=== PATIENT | female | born 1965 | race Two or more races ===

== ENCOUNTER 2021-06-03 07:28 | Day surgery (SDC) | payer BC, SELFPAY ==
--- NOTE | 2021-06-01 13:45 | PCM.HP.BLA ---
History and Physical Date of Admission: 06/03/21 Pre-Op History and Physical ? HPI: The patient is a 55 year old female presenting for postmenopausal bleeding follow-up pelvic ultrasound. Patient had previous postmenopausal bleeding had a pelvic ultrasound which revealed thickened endometrial lining with a likely endometrial polyp. Decision at this time to proceed with evaluation of the endometrial cavity. Pre-operative visit. She is scheduled for hysteroscopy, D&C, polypectomy, for thickened EM, Endometrial polyp and PMB on 06/03/21. Procedure discussed along with risks, benefits and complications. Other alternatives discussed for management. Consent form signed? Yes. ? ? PAST MEDICAL HISTORY PAST MEDICAL HISTORY Diagnosis Date ? Anxiety ? ? Hyperlipemia ? ? Hypothyroid ? ? ? PAST SURGICAL HISTORY PAST SURGICAL HISTORY Procedure Laterality Date ? ANKLE SURGERY HX Left 01/17/2018 ? plates and screws placed ? , LOW CERV, IN-HOSP CAR ? ? ? x2 ? TUBAL LIGATION HX ? CURRENT MEDICATIONS Current Outpatient Medications Medication Sig Dispense Refill ? topiramate (TOPAMAX) 25 mg tablet TAKE 1 TABLET DAILY X 1 WEEK, THEN INCREASE TO 2 TABLETS DAILY ? ? ? fluticasone propionate (FLONASE NASAL) Use in the nose. ? ? ? MAGNESIUM CITRATE ORAL Take by mouth. ? ? ? folic acid/multivit-min/lutein (CENTRUM SILVER ORAL) Take by mouth. ? ? ? Levothyroxine 50 mcg cap Take 75 mcg by mouth. ? atorvastatin (LIPITOR) 10 mg tablet Take 10 mg by mouth once daily. ? ? ? CALCIUM CARBONATE/VITAMIN D3 (VITAMIN D-3 ORAL) Take 2,000 Units by mouth. ? ? ? fexofenadine (ALLERGY RELIEF, FEXOFENADINE,) 180 mg tablet Take 180 mg by mouth once daily. ? ? ? acyclovir 200 mg capsule Take by mouth every 4 hours while awake. ? ? ? rizatriptan 5 mg tablet Take 5 mg by mouth as needed. May repeat in 2 hours if needed ? ? ? sertraline 100 mg tablet Take 100 mg by mouth once daily. ? ? ? No current facility-administered medications for this visit. ? ? ALLERGIES: Seasonal Allergies ? PERSONAL HISTORY: SOCIAL HISTORY Social History ? Tobacco Use ? Smoking status: Former Smoker ? Smokeless tobacco: Never Used ? Tobacco comment: 6 months in college Vaping Use ? Vaping Use: Never used Substance Use Topics ? Alcohol use: Yes ? ? Comment: social ? Drug use: No ? FAMILY HISTORY: FAMILY HISTORY FAMILY HISTORY Problem Relation Age of Onset ? Breast Cancer Mother ? ? Hypertension Mother ? ? Hyperlipidemia Mother ? ? Hyperlipidemia Father ? ? Hypertension Brother ? ? Breast Cancer Maternal Grandmother ? ? Hypertension Maternal Grandfather ? ? Diabetes Paternal Grandmother ? ? ? REVIEW OF SYMPTOMS: negative except as noted above PHYSICAL EXAMINATION: ? VITALS: Blood pressure 118/64, height 5' 3 (1.6 m), weight 164 lb (74.4 kg), last menstrual period 10/04/2016. ? GENERAL: The patient is well nourished, well hydrated in no acute distress. , The patient is oriented to time, place, and person. NECK: full range of motion NEURO: alert and oriented x 3 ? Normal appearing anteverted uterus that measures 77 mm x 39 mm x 43 mm. The central endometrial complex measures 9.1 mm in combined thickness. Endometrial ?pathology cannot be excluded. Possible endometrial polyp noted: Polyp(s): Size 17 mm x 8 mm x 12 mm. Mean 12.3 mm. Fundal Both ovaries are not visualized. There is no free fluid visualized in the peritoneal cavity. Recommendations Consider hysteroscopic evaluation and management of intracavitary lesion if clinically indicated. Consider further clinical evaluation of the endometrial cavity. Method Transvaginal, 3D ultrasound examination. ? IMPRESSION: PMB, thickened EM, endometrial polyp ? PLAN: Hysteroscopy, D&C, Polypectomy ? Pt has been counseled on risks/benefits and alternatives of surgery including but not limited to anesthesia, bleeding, infection, injury to pelvic structures including bowel, bladder, ureters and vessels. Pt wishes to proceed with surgery at this time. ? COVID testing reviewed PRE and POST op instructions reviewed I have reviewed and updated past medical and surgical history, medications and allergies Hanny Pineda MD ?8:28 AM
[2021-06-03 08:19] VITALS: BP 115/71; PULSE 64; RESP 16; TEMP 36.7; O2SAT 99; BMI 26.9
[2021-06-03 08:19] LABS: Hematocrit 39.7 % (37-47); Hemoglobin 13.4 g/dL (12.0-15.0); Mean Corp Hgb Conc 33.8 g/dL (32-36); Mean Corpuscular Hgb 30.9 pg (27.0-32.0); Mean Corpuscular Volume 91.5 fL (81-99); Platelet Count 273 K/mm3 (150-450); RBC Distribution Width CV 12.3 % (11.6-14.6); RBC Distribution Width SD 41.5 fl (35.1-43.9); Red Blood Count 4.34 M/mm3 (4.2-5.4); White Blood Count 4.6 K/mm3 (4.4-11.0)
[2021-06-03 08:22] LABS: Scan Indicated on CBC? Y/N NO
[2021-06-03] MEDS: Lactated Ringers 1,000 ML 15 ML IV (08:26)
--- NOTE | 2021-06-03 08:33 | DCINST_ITS ---
Discharge Instructions Procedure D&C Diet Discharge Diet: No restrictions Activity May resume sexual activity in: 1 week Dressing / Incision Call your doctor if you observe: Fever of 101 or Higher, Inability to urinate, Using more than 1 pad per hour and Uncontrolled pain Follow Up Care Please Follow Up With: Hanny Hooks MD When: 1-2 weeks post OP if you need an appointment please call [phone] Test Results: Test results from this visit will be discussed in further detail at your follow-up appointment, if applicable. Discharge Plan Admission Attending Provider: Hanny Hooks Primary Care Provider: Sheron Cota NP Discharge Orders/Prescriptions Prescriptions: No Action atorvastatin 10 mg Tablet 10 mg PO QHS RF: 0 sertraline 100 mg Tablet 100 mg PO DAILY RF: 0 topiramate 25 mg Tablet 50 mg PO DAILY RF: 0 fexofenadine [Magaly] 180 mg Tablet 180 mg PO DAILY RF: 0 magnesium 100 mg Tablet 100 mg PO PRN PRN (Reason: Digestion) RF: 0 multivitamin Capsule 1 cap PO DAILY RF: 0 rizatriptan 5 mg Tablet 5 mg PO Q2H PRN (Reason: MIGRAINES) RF: 0 melatonin-theanine 3-40 mg Tablet 2 tab PO QHS RF: 0 cholecalciferol (vitamin D3) [Vitamin D3] 50 mcg (2,000 unit) Capsule 50 mcg PO DAILY RF: 0 levothyroxine 75 mcg Capsule 75 mcg PO DAILY RF: 0 Referrals / Follow Up: Sheron Cota NP, [facility] [Primary Care Provider] - Disposition Disposition (needs filled in before D/C Order can be placed): Home, Self Care
[2021-06-03 08:35] LABS: Anion Gap 6 (5-15); BUN 23 mg/dL (7-18); Calcium,Total 9.3 mg/dL (8.5-10.1); Chloride 111 mmol/L (98-107); Creatinine, Serum 0.85 mg/dL (0.55-1.02); EST Glomerular Filtration Rate 73 mL/min (>60); Est Glom Filt Rate - Afr Amer 89 mL/min (>60); Estimated Creatinine Clearance 61.13 ml/min; Glucose 106 mg/dL (74-106); Potassium 4.1 mmol/L (3.5-5.1); Sodium Level 142 mmol/L (136-145)
--- NOTE | 2021-06-03 08:45 | EMB_PTH ---
PATIENT: KIA MCKEON LOC: [facility] [place] U#:[id number] AGE/SX: 55/F ROOM: RE06/03/[address]: Dr. Hanny Hooks, MDDOB: 1965 BED: DIS: 06/03/2021 SPEC #: [id number] RECD: 06/03/21 12:57 STATUS: GENNARO NICHOLS #: [id number] CARLA: 06/03/21 08:[address]: Hanny Hooks DEPT: SURGICAL PATHOLOGY RECD BY: Una Lujan ENTERED: 06/03/21 13:32 SP TYPE: ENDOM BX/C MARU DR: MINERVA Muhammad Tissues: Endometrium, NOS Procedures: Surgery Specimen Level IV HEADER OPERATION: Hysteroscopy, D & C PRE-OP DIAGNOSIS: PMB, thickened EM TISSUE SUBMITTED: Endometrial curettings MICROSCOPIC DIAGNOSIS Endometrial curettings: Inactive endometrium. Fragments of benign endocervical mucosa, blood and mucous. GRETCHEN:win 06/04/2021 MICROSCOPIC DESCRIPTION Slides are reviewed. GROSS DESCRIPTION Received in fixative is one container labeled with the patient's name and designated endometrial curettings. The specimen consists of multiple fragments of hemorrhagic soft tissue that in aggregate measure 2.5 x 1 x 0.1 cm. The specimen is totally submitted in one cassette. / GRETCHEN:win 06/03/21 TC:4 CPT: 09499
--- NOTE | 2021-06-03 09:02 | PCM.OPRPT ---
Problems Associated Problem List Diagnoses (1) Thickened endometrium: (2) PMB (postmenopausal bleeding): Report of Operation Date of Procedure: 06/03/21 Pre-Operative Diagnosis: PMB, thickened endometrium, endometrial polyp Post-Operative Diagnosis: PMB Surgery/Procedure Performed:: Hysteroscopy, D&C Description of Surgical Findings:: Normal endometrium, one area of thickness noted on left endocervical area, both tubal ostia visualized. Atrophic appearing EM Surgeon: Hanny Hooks Type of Anesthesia: MAC Specimen's removed: endometrial curetting Drains: none Estimated Blood Loss (mL): <5cc Fluids Replaced: 500 Description of Procedure: Informed consent was obtained the patient was taken the operating room she was placed in supine position. She was given anesthesia. She was then placed in the [facility] where she was prepped and draped in the normal sterile fashion. At this time the weighted speculum was placed in the posterior fornix of vagina. Single-tooth tenaculum was used to gently grasp the anterior lip the cervix. At this time the uterine cavity was sounded to approximately 7 cm. Gentle dilatation was performed once adequate dilatation of the cervix was achieved the hysteroscope using normal saline as a distention medium was placed. Tubal ostia visualized. Endometrium appears atrophic, Small amount of tissue noted on left endocervical canal. This time hysteroscopy was complete. Decision for Curettage performed- small amount of tissue collected and Tissue will be sent to pathology for evaluation. Tenaculum removed. Good hemostasis. Instrument, lap count correct x 2. Vaginal Sweep was negative. Grafts/Implants Used: none Procedure Start Time: 08:53 Procedure Stop Time: 09:00 Complications none Admit VTE Documentation VTE Present on Admission: Yes VTE Mechan Device Prophylaxis: SCD's VTE Pharm Prophylaxis ordered?: No Reason prophylaxis not ordered:: Procedure Not Indicated
[2021-06-03 09:13] VITALS: BP 115/71; PULSE 72; RESP 18; TEMP 36.3; O2SAT 95
[2021-06-03 09:15] VITALS: BP 115/71; BP 149/79; PULSE 73; RESP 18; O2SAT 94
[2021-06-03 09:20] VITALS: BP 115/71; BP 141/75; PULSE 77; RESP 18; O2SAT 94
[2021-06-03 09:21] VITALS: BP 115/71; BP 138/76; PULSE 70; RESP 18; TEMP 36.3; O2SAT 96
[2021-06-03 10:25] VITALS: BP 110/74; BP 115/71; PULSE 70; RESP 16; TEMP 36.8; O2SAT 98
== END 2021-06-03 10:27 | disposition home or self-care (01) ==
LOC: SDC 07:40 → AC 07:40
PROVIDERS: PCP Nurse Practitioner Family; Referring Provider Obstetrics & Gynecology; Visit Provider Obstetrics & Gynecology
PROC: 0UB98ZZ Excision of Uterus, Via Natural or Artificial Opening Endoscopic (ICD-10-PCS; CPT 58558; principal; 2021-06-03 08:30)
DX: N95.0 Postmenopausal bleeding (principal); R93.89 Abnormal findings on diagnostic imaging of other specified body structures; E03.9 Hypothyroidism, unspecified; E78.5 Hyperlipidemia, unspecified; F41.9 Anxiety disorder, unspecified; Z80.3 Family history of malignant neoplasm of breast; Z82.49 Family history of ischemic heart disease and other diseases of the circulatory system; Z83.438 Family history of other disorder of lipoprotein metabolism and other lipidemia; Z83.49 Family history of other endocrine, nutritional and metabolic diseases; Z83.3 Family history of diabetes mellitus; Z87.891 Personal history of nicotine dependence; F32.9 Major depressive disorder, single episode, unspecified
CPT/HCPCS: 00952; 58558; 80048; 85027; 88305; J7120; J2405

== ENCOUNTER → 2025-06-13 | Outpatient (CLI) | payer BC, SELFPAY ==
--- NOTE | 2025-06-13 19:02 | CT_ITS ---
PROCEDURE: SINUS/FACIAL BONE 06/14/2025 REASON FOR EXAM: CHRONIC SINUSITIS TECHNIQUE: Procedure Code: CTSI Modality: CT Procedure: SINUS/FACIAL BONE Coronal and Sagittal reconstruction series were provided. One or more dose reduction techniques were used (e.g., Automated exposure control, adjustment of the mA and/or kV according to patient size, use of iterative reconstruction technique). RADIATION DOSE SUMMARY: CTDI Vol 22.63 mGy DLP :515.6mGycm COMPARISON: none FINDINGS: Minimal basal mucosal thickening of the left maxillary antrum. Clear sphenoid and frontal sinuses as well as the right maxillary antrum and ethmoidal air cells. Uncinate Processes: No deviation or bulla formation O-M UNIT: patent. Sphenoethmoidal recesses. Patent Fovea Ethmoidalis: Normal position. Fovea ethmoidalis and cribriform plate are not low lying Nasal Septum: intact with o obvious deviation. Turbinates: unremarkable. Nasopharynx: no obvious abnormalities. Mastoid air cells and middle ear clefts: Unremarkable Facial Bones and mandible: Unremarkable. CT/Sinus/Facial Bone IMPRESSION: Minimal basal mucosal thickening of the left maxillary antrum. Otherwise, unremarkable study. Reading [facility]
--- OUTSIDE RECORDS SUMMARY | 2025-06-13 19:03 | XMS RPT_ITS | CCD ---
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 Holbrook December Primary Care Unava ilable Beata, Ms. Holbrook December Referring Unava ilable Beata, Ms. Holbrook December Attending Unava ilable Beata, Ms. Holbrook December Primary Care Unava ilable Bree Gold Referring Unavailable Bree Gold Attending Unavailable Maspeth, Ms. Holbrook December Primary Care Unava ilable Bree Gold Referring Unavailable Bree Gold Attending Unavailable Beata, Ms. Holbrook December Primary Care Unava ilable Bree Gold Referring Unavailable Bree Gold Attending Unavailable ALIX, Mr. CECILE PATEL Referring Unavai salinas Cota, Ms. Holbrook December Primary Care Unava ilable Bree Gold Attending Unavailable Ms. Lenore Elias Referring Unavailable Curt, Ms. Lenore Garza Attending Unavailable Beata, Ms. Holbrook December Primary Care Unava ilable Hanny Hooks Referring Unavail able Hanny Hooks Attending Unavail able Beata BRANCH, Sheron Primary Care Unavailable Bree Espinoza MD Primary Care Provider [phone] Bree Espinoza Unavailable MD BREE ESPINOZA Attending Unavaila MD BREE Castillo Primary Care Unavaila MD BREE Castillo Referring Unavaila MD BREE Castillo Attending Unavaila MD BREE Castillo Primary Care Unavaila MD BREE Castillo Referring Unavaila MD BREE Castillo Attending Unavaila MD BREE Castillo Primary Care Unavaila MD BREE Castillo Referring Unavaila ble MD BREE ESPINOZA Attending Unavaila ble MD BREE ESPINOZA Primary Care Unavaila MD BREE Castillo Referring Unavaila ble MD BREE ESPINOZA Primary Care Unavaila MD BREE Castillo Attending Unavaila ble MD BREE ESPINOZA Referring Unavaila ble MD BREE ESPINOZA Primary Care Unavaila MD BREE Castillo Attending Unavaila ble MD BREE ESPINOZA Referring Unavaila ble MD BREE ESPINOZA Primary Care Unavaila ble MD BREE ESPINOZA Attending Unavaila ble MD BREE ESPINOZA Referring Unavaila MD BREE Castillo Primary Care Unavaila ble MD BREE ESPINOZA Attending Unavaila ble MD BREE ESPINOZA Referring Unavaila ble MD BREE ESPINOZA Primary Care Unavaila MD BREE Castillo Referring Unavaila MD BREE Castillo Attending Unavaila MD BREE Castillo Attending Unavaila MD BREE Castillo Referring Unavaila ble MD BREE ESPINOZA Primary Care Unavaila MD BREE Castillo Attending Unavaila MD BREE Castillo Referring Unavaila MD BREE Castillo Primary Care Unavaila MD BREE Castillo Attending Unavaila MD BREE Castillo Primary Care Unavaila MD BREE Castillo Referring Unavaila MD BREE Castillo Attending Unavaila MD BREE Castillo Primary Care Unavaila MD BREE Castillo Referring Unavaila BREE Castillo Primary Care Unavailable BREE ESPINOZA Primary Care Unavailable BREE ESPINOZA Referring Unavailable BREE ESPINOZA Primary Care Unavailable BREE ESPINOZA Referring Unavailable BREE ESPINOZA Primary Care Unavailable BREE ESPINOZA Referring Unavailable BREE ESPINOZA Primary Care Unavailable BREE ESPINOZA Primary Care Unavailable BREE ESPINOZA Primary Care Unavailable BREE ESPINOZA Primary Care Unavailable BREE ESPINOZA Referring Unavailable BREE ESPINOZA Primary Care Unavailable BREE ESPINOZA Referring Unavailable BREE ESPINOZA Primary Care Unavailable BREE ESPINOZA Primary Care Unavailable BREE ESPINOZA Primary Care Unavailable BREE ESPINOZA Primary Care Unavailable Bree Espinoza MD Primary Care Provider [phone] Bree Espinoza MD Primary Care Provider [phone] Xavier Knox DO Primary Care Provider Bree Espinoza MD Primary Care Provider [phone] BREE ESPINOZA Attending Unavailable BREE ESPINOZA Primary Care Unavailable BREE ESPINOZA Attending Unavailable BREE ESPINOZA Primary Care Unavailable BREE ESPINOZA Attending Unavailable BREE ESPINOZA Primary Care Unavailable XAVIER KNOX Primary Care Unavailable HANNY LOCKE Attending Unavail able YURI LAINEZ Referring Unavailable XAVIER KNOX Primary Care Unavailable Allergies Allergy Classification Reported Allergen(s) Allergy Type Date of Onset Reaction(s) Facility (6 sources) Seasonal allergy; Translations: [SEASONAL ALLERGIES] Allergy to substance 7 Other: See [facility] (1 source) Sutures Drug allergy (disorder) 3 [facility] (7 sources) AMOXICILLIN-POT CLAVULANATE; Translations: [AMOXICILLIN-PO T CLAVULANATE] Propensity to adverse reactions to drug (disorder) 4 Headache, Nausea/vomiting [facility] Medications Current Medications Medication Drug Class(es) Dates Sig (Normalized) Sig (Original) acyclovir 200 mg oral capsule (20 sources) Herpesvirus Nucleoside Analog DNA Polymerase Inhibitor, Herpes Simplex Virus Nucleoside Analog DNA Polymerase Inhibitor, Herpes Zoster Virus Nucleoside Analog DNA Polymerase Inhibitor Start: 12-13-2023 take 1 capsule by mouth five times daily acyclovir (Zovirax) 200 mg capsule Indications: Recurrent cold sores Take 1 capsule (200 mg) by mouth 5 times a day. 10 capsule 3 12/13/2023 Active Start: 08-28-2023 take 1 capsule by mo [facility] five times daily acyclovir (Zovirax) 200 mg capsule Indications: Recurrent cold sores TAKE 1 CAPSULE (200 MG) BY MOUTH 5 TIMES A DAY. 10 capsule 3 08/28/2023 Active Start: 05-14-2018 take 1 capsule by mo [facility] five times daily Acyclovir 200 MG Oral Capsule Take 1 capsule 5 times a day. Quantity: 30 Refills: 1 Ordered: 11-Jul-2022 Lenore Suh Start : 14-May-2018 Active take 1 capsule by mo [facility] every four hours acyclovir 200 mg capsule Take by mouth every 4 hours while awake. Active Comment on above: Take by mouth every 4 hours while awake. amLODIPine 5 mg oral tablet (5 sources) Dihydropyridine Calcium Channel Benjamin Start: 10-25-19 take 1 tablet by mouth once daily amLODIPine (Norvasc) 5 mg tablet Indications: Primary hypertension Take 1 tablet (5 mg) by mouth once daily. 30 tablet 5 10/24/2024 Active Start: 03-12-2024 End: 09-08-2024 take 1 tablet by mouth once daily amLODIPine (Norvasc) 5 mg tablet Indications: Primary hypertension TAKE 1 TABLET BY MOUTH EVERY DAY 30 tablet 5 08/22/2024 Active atorvastatin 10 mg oral tablet (20 sources) HMG-CoA Reductase Inhibitor Start: 08-22-2024 take 1 tablet by mouth once daily atorvastatin (Lipitor) 10 mg tablet Indications: Mixed hyperlipidemia Take 1 tablet (10 mg) by mouth once daily. 30 tablet 5 10/24/2024 Active Start: 05-14-2018 take 1 tablet by [facility] once daily atorvastatin (Lipitor) 10 mg tablet Indications: Mixed hyperlipidemia TAKE 1 TABLET BY MOUTH EVERY DAY 90 tablet 1 02/26/2024 Active Comment on above: Take 10 mg by mouth once daily. azithromycin 500 mg oral tablet (3 sources) Macrolide Antimicrobial Start: 04-14-20 End: 04-24-20 take 1 tablet by mouth once daily azithromycin (Zithromax) 500 mg tablet Indications: Acute non-recurrent maxillary sinusitis Take 1 tablet (500 mg) by mouth once daily for 5 days. 5 tablet 04/14/2025 04/24/2025 Discontinued (Therapy completed) Start: 10-24-2024 End: 10-29-2024 take 1 tablet by mouth once daily azithromycin (Zithromax) 500 mg tablet Indications: Frontal sinus pain Take 1 tablet (500 mg) by mouth once daily for 5 days. 5 tablet 10/24/2024 10/29/2024 Active 24 hr buPROPion hydrochloride 300 mg extended release oral tablet (11 sources) Aminoketone Start: 08-22-2024 take 1 tablet by mouth once daily buPROPion XL (Wellbutrin XL) 300 mg 24 hr tablet Indications: Anxiety , Reactive depression Take 1 tablet (300 mg) by mouth once daily. DO NOT CRUSH CHEW OR SPLIT 30 tablet 5 10/24/2024 Active Start: 09-11-2023 End: 03-12-2024 take 1 tablet by mouth once daily buPROPion XL (Wellbutrin XL) 300 mg 24 hr tablet Indications: Anxiety , Reactive depression Take 1 tablet (300 mg) by mouth once daily. DO NOT CRUSH CHEW OR SPLIT 30 tablet 5 03/12/2024 Active Start: 03-13-2023 take 1 tablet by pedro th once daily buPROPion XL (Wellbutrin XL) 300 mg 24 hr tablet Indications: Anxiety , Reactive depression TAKE 1 TABLET BY MOUTH ONCE DAILY. DO NOT CRUSH, CHEW, OR SPLIT. 30 tablet 5 03/13/2023 Active Start: 02-01-2023 take 1 tablet by pedro th once daily buPROPion XL (Wellbutrin XL) 300 mg 24 hr tablet Indications: Anxiety , Reactive depression Take 1 tablet (300 mg) by mouth once daily. Do not crush, chew, or split. 30 tablet 2 02/01/2023 Active Start: 12-30-2022 End: 02-28-2023 take 1 tablet by mouth once daily buPROPion XL (Wellbutrin XL) 150 mg 24 hr tablet Indications: Anxiety , Reactive depression Take 1 tablet (150 mg) by mouth once daily. Do not crush, chew, or split. 30 tablet 5 01/23/2023 02/01/2023 Discontinued (Reorder) Calcium Carbonate / vitamin D3 (5 sources) CALCIUM CARBONAT E/VITAMIN D3 (VITAMIN D-3 ORAL) Take 2,000 Units by mouth. Active CALCIUM CARBONAT E/VITAMIN D3 (VITAMIN D-3 ORAL) Take 2,000 Units by mouth. 0 Active Comment on above: Take 2,000 Units by mouth. cholecalciferol 0.025 mg oral capsule (20 sources) Vitamin D take 1 capsule by mouth once daily cholecalciferol (Vitamin D-3) 25 MCG (1000 UT) capsule Take 1 capsule (25 mcg) by mouth once daily. Active fexofenadine hydrochloride 180 mg oral tablet (20 sources) Histamine-1 Receptor Antagonist take 1 tablet by mouth once daily fexofenadine (Magaly) 180 mg tablet Take 1 tablet (180 mg) by mouth once daily. Active Fexofenadine HCl - 180 MG Oral Tablet Quantity: 0 Refills: 0 Ordered: 14-May-2019 DO Active Comment on above: Take 180 mg by mouth once daily. fluticasone propionate 0.05 mg/actuat metered dose nasal spray (11 sources) Corticosteroid take 1 spray(s) nasal route once daily fluticasone (Flonase) 50 mcg/actuation nasal spray Administer 1 spray into each nostril once daily. Shake gently. Before first use, prime pump. After use, clean tip and replace cap. Active End: 05-30-2022 fluticasone propionate (FLON ASE NASAL) Use in the nose. 0 05/30/2022 Discontinued Comment on above: Use in the nose. folic acid/multivit-min/lute in (CENTRUM SILVER ORAL) (5 sources) folic acid/multi vit-min/lutein (CENTRUM SILVER ORAL) Take by mouth. Active folic acid/multi vit-min/lutein (CENTRUM SILVER ORAL) Take by mouth. 0 Active Comment on above: Take by mouth. levothyroxine sodium 0.088 mg oral tablet (20 sources) l-Thyroxine Start: 06-24-2024 take 1 tablet by mouth once daily levothyroxine (Synthroid, Levoxyl) 88 mcg tablet Indications: Hypothyroidism, unspecified type Take 1 tablet (88 mcg) by mouth once daily. 30 tablet 5 10/24/2024 Active Start: 12-28-2023 take 1 tablet by pedro th once daily levothyroxine (Synthroid, Levoxyl) 88 mcg tablet Indications: Hypothyroidism, unspecified type TAKE 1 TABLET BY MOUTH EVERY DAY 30 tablet 5 12/28/2023 Active Start: 06-27-2023 take 1 tablet by pedro th once daily levothyroxine (Synthroid, Levoxyl) 88 mcg tablet Indications: Hypothyroidism, unspecified type TAKE 1 TABLET BY MOUTH EVERY DAY 90 tablet 1 06/27/2023 Active Start: 02-25-2019 take 1 tablet by pedro once daily Levothyroxine Sodium 75 MCG Oral Tablet TAKE ONE TABLET BY MOUTH DAILY Quantity: 90 Refills: 1 Ordered: 02-Aug-2022 Lenore Suh Start : 25-Feb-2019 Active Levothyroxine 50 mcg cap Take 75 mcg by mouth. Active Comment on above: Take 75 mcg by mouth . magnesium citrate 125 mg oral capsule (20 sources) magnesium citrat e 125 mg capsule Take 1 each by mouth see administration instructions. Active MAGNESIUM CITRAT E ORAL Take by mouth. Active MAGNESIUM CITRAT E ORAL Take by mouth. 0 Active Magnesium Citrat e CAPS Quantity: 0 Refills: 0 Ordered: 20-Jan-2022 DO Active Comment on above: Take by mouth. multivitamin tablet (10 sources) take 1 tablet by mouth once daily multivitamin tablet Take 1 tablet by mouth once daily. Active take 1 tablet by mouth once jomar y multivitamin tablet Take 1 tablet by mouth once daily. 0 Active predniSONE 10 mg oral tablet (1 source) Start: 04-24-2025 predniSONE (De ltasone) 10 mg tablet Indications: Primary hypertension 4 tabs daily for 3 days, 3 tabs daily for 3 days, 2 tabs daily for 3 days, 1 tab daily for 3 days, then discontinue 30 tablet 04/24/2025 Active Start: 04-24-2025 predniSONE (De ltasone) 10 mg tablet Indications: Primary hypertension 4 tabs daily for 3 days, 3 tabs daily for 3 days, 2 tabs daily for 3 days, 1 tab daily for 3 days, then discontinue 30 tablet 04/24/2025 Active rizatriptan 5 mg oral tablet (20 sources) Serotonin-1b and Serotonin-1d Receptor Agonist Start: 05-14-2018 take 1 tablet by mouth every two hours rizatriptan (Maxalt) 5 mg tablet Indications: Other migraine without status migrainosus, not intractable TAKE 1 TABLET BY MOUTH AT ONSET OF HEADACHE. MAY REPEAT IN 2 HOURS. MAX 30/MG 24 HOURS. 9 tablet 1 12/09/2024 Active Comment on above: Take 5 mg by mouth a s needed. May repeat in 2 hours if needed sertraline 100 mg oral tablet (20 sources) Serotonin Reuptake Inhibitor Start: 07-22-2024 sertraline (Zoloft) 100 mg tablet Indications: Anxiety TAKE 1 AND 1/2 TABLETS DAILY 45 tablet 5 10/24/2024 Active Start: 11-07-2017 sertraline (Zo loft) 100 mg tablet Indications: Anxiety TAKE 1 AND 1/2 TABLETS DAILY 45 tablet 5 02/05/2024 Active Start: 11-07-2017 take 1.5 tablets by mouth once daily Sertraline HCl - 100 MG Oral Tablet TAKE 1.5 TABLET Daily Quantity: 135 Refills: 1 Ordered: 02-Aug-2022 Curt GOOD-Lenore SÁNCHEZ Start : 07-Nov-2017 Active Start: 11-07-2017 take 2 tablets by mo ut once daily Sertraline HCl - 100 MG Oral Tablet take 2 tablets by mouth every day Quantity: 60 Refills: 5 Ordered: 22-Jul-2021 Curt GOOD-Lenore SÁNCHEZ Start : 07-Nov-2017 Active Comment on above: Take 100 mg by mouth once daily. vitamin b12 1 mg oral tablet (20 sources) Vitamin B12 take 0.5 tablet by mouth once daily cyanocobalamin (Vitamin B-12) 1,000 mcg tablet Take 0.5 tablets (500 mcg) by mouth once daily. Active Vitamin B-12 100 0 MCG Oral Tablet Quantity: 0 Refills: 0 Ordered: 14-May-2019 DO Active Completed/Discontinued Medications Medication Drug Class(es) Dates Sig (Normalized) Sig (Original) acetaminophen 325 mg / oxyCODONE hydrochloride 5 mg oral tablet (5 sources) Opioid Agonist Start: 01-19-2022 oxyCODONE-Acetami nophen 5-325 MG Oral Tablet Quantity: 6 Refills: 0 Ordered: 19-Jan-2022 DO Start : 19-Jan-2022 Active doxepin hydrochloride 10 mg oral capsule (8 sources) Tricyclic Antidepressant Start: 01-16-2020 take 1 capsule by mouth at bedtime Doxepin HCl - 10 MG Oral Capsule TAKE 1 CAPSULE AT BEDTIME. Quantity: 90 Refills: 1 Ordered: 07-Jan-2021 Sheron Brown Start : 16-Jan-2020 Active Magnesium glycinate (18 sources) Magnesium Glycinate CAPS Quantity: 0 Refills: 0 Ordered: 20-Jan-2022 DO Active Melatonin (20 sources) End: 12-30-2022 take 1 tablet by mouth once daily at bedtime melatonin 12 mg tablet Take 1 tablet by mouth once daily at bedtime. 0 12/30/2022 Discontinued (Ineffective) Melatonin TABS Q uantity: 0 Refills: 0 Ordered: 22-Jul-2021 DO Active Multi-Vitamins TABS (20 sources) Multi-Vitamins T ABS Quantity: 0 Refills: 0 Ordered: 22-Jul-2021 DO Active nitrofurantoin, macrocrystals 25 mg / nitrofurantoin, monohydrate 75 mg oral capsule (7 sources) Nitrofuran Antibacterial Start: End: take 1 capsule by mouth once Nitrofurantoin Monohyd Macro 100 MG Oral Capsule TAKE 1 CAPSULE (100 MG TOTAL) BY MOUTH EVERY 12 (TWELVE) HOURS FOR 5 DAYS. Quantity: 10 Refills: 0 Ordered: 15-Oct-2021 DO Start : 15-Oct-2021 End : 02-Aug-2022 Complete phenazopyridine hydrochloride 100 mg oral tablet (5 sources) Start: take 1 tablet by mouth three times daily as needed for muscle spasms Phenazopyridine HCl - 100 MG Oral Tablet TAKE 1 TABLET BY MOUTH THREE TIMES A DAY NEEDED FOR BLADDER SPASMS FOR UP TO 3 DAYS Quantity: 10 Refills: 0 Ordered: 15-Oct-2021 DO Start : 15-Oct-2021 Active topiramate 25 mg oral tablet (13 sources) Start: End: topiramate (TOPAMAX) 25 mg tablet TAKE 1 TABLET DAILY X 1 WEEK, THEN INCREASE TO 2 TABLETS DAILY 0 01/07/2021 05/30/2022 Discontinued Start: 01-07-2021 take 2 tablets by mo ut once daily Topiramate 25 MG Oral Tablet TAKE 2 TABLET Daily Quantity: 180 Refills: 1 Ordered: 01-Feb-2021 Sheron Brown Start : 07-Jan-2021 Active End: 12-30-2022 take 1 tablet by mouth twice daily topiramate (Topamax) 25 mg tablet Take 1 tablet (25 mg) by mouth 2 times a day. 0 12/30/2022 Discontinued (Therapy completed) Comment on above: TAKE 1 TABLET DAILY X 1 WEEK, THEN INCREASE TO 2 TABLETS DAILY Problems Active Problems Problem Classification Problem Date Documented Da te Episodic/Chronic Anxiety disorders (20 sources) Anxiety; Translations: [Anxiety state, unspecified] Onset: 12-30-2022 12-30-2022 Chronic Diabetes mellitus without complication (1 source) Increased glucose level; Translations: [Other abnormal glucose] 04-24-2025 Episodic Diseases of white blood cells (13 sources) Leukocytosis; Translations: [Leukocytosis, unspecified] Chronic Disorders of lipid metabolism (20 sources) Mixed hyperlipidemia; Translations: [Mixed hyperlipidemia] Onset: 12-30-2022 12-30-2022 Chronic Essential hypertension (6 sources) Essential hypertension; Translations: [Essential (primary) hypertension] Onset: 04-24-2025 04-25-2024 Chronic Genitourinary symptoms and ill-defined conditions (1 source) Dysuria; Translations: [Dysuria] Onset: 04-28-2025 Episodic Headache; including migraine (20 sources) Migraine; Translations: [Migraine, unspecified, without mention of intractable migraine without mention of status migrainosus] Onset: 12-30-2022 12-30-2022 Chronic Headache; including migraine (2 sources) Cervicogenic headache; Translations: [Cervicogenic headache] 12-30-2022 Episodic Immunizations and screening for infectious disease (20 sources) Requires diphtheria, tetanus and pertussis vaccination; Translations: [Need for prophylactic vaccination and inoculation against [id number] rtussis, combined [DTP] [DTaP]] Onset: 04-24-2025 Resolved: 07-17-2020 04-24-2025 Episodic Inflammatory diseases of female pelvic organs (1 source) Acute vulvitis; Translations: [Acute vulvitis] Onset: 04-28-2025 Episodic Menopausal disorders (3 sources) Postmenopausal bleeding; Translations: [Postmenopausal bleeding] Onset: 10-25-2022 Chronic Miscellaneous mental health disorders (2 sources) Primary insomnia; Translations: [Primary insomnia] 09-05-2023 Chronic Mood disorders (2 sources) Reactive depression (situational); Translations: [Major depressive disorder, single episode, unspecified] 12-30-2022 Chronic Other circulatory disease (1 source) Elevated blood-pressure reading without diagnosis of hypertension; Translations: [Elevated blood-pressure reading, without diagnosis of hypertension] 02-01-2023 Episodic Other connective tissue disease (3 sources) Other symptoms and signs involving the musculoskeletal system; Translations: [Oth symptoms and signs involving the musculoskeletal system] Onset: 02-21-2023 Episodic Other ear and sense organ disorders (1 source) Bilateral tinnitus; Translations: [Tinnitus, bilateral] 03-07-2023 Episodic Other female genital disorders (3 sources) Postcoital bleeding; Translations: [Postcoital and contact bleeding] Chronic Other gastrointestinal disorders (2 sources) Constipation; Translations: [Constipation, unspecified] Episodic Other lower respiratory disease (1 source) Cough; Translations: [Subacute cough] 04-24-2025 Episodic Other nutritional; endocrine; and metabolic disorders (3 sources) Body mass index 25-29 - overweight; Translations: [Body Mass Index 28.0-28.9, adult] Episodic Other nutritional; endocrine; and metabolic disorders (18 sources) Overweight in adulthood with body mass index of 25 or more but less than 30; Translations: [Body Mass Index 28.0-28.9, adult] Resolved: 01-20-2022 Episodic Other screening for suspected conditions (not mental disorders or infectious disease) (10 sources) Patient encounter status; Translations: [Encounter for screening mammogram for malignant neoplasm of breast] Onset: 09-05-2023 Episodic Other upper respiratory disease (1 source) Nasal congestion; Translations: [Nasal congestion] 03-07-2023 Episodic Other upper respiratory disease (1 source) Frontal sinus pain; Translations: [Other specified disorders of nose and nasal sinuses] 10-24-2024 Episodic Other upper respiratory infections (2 sources) Sinusitis; Translations: [Sinusitis] Onset: 04-14-2025 Chronic Other upper respiratory infections (20 sources) Viral upper respiratory tract infection; Translations: [Acute upper respiratory infections of unspecified site] Resolved: 07-17-2020 04-14-2025 Episodic Residual codes; unclassified (20 sources) History finding; Translations: [Other specified conditions influencing health status] Episodic Thyroid disorders (20 sources) Hypothyroidism; Translations: [Unspecified acquired hypothyroidism] Onset: 12-30-2022 12-30-2022 Chronic Unclassified (2 sources) [facility] Review Required; Translations: [[facility] [employer] [facility] Review Required] Onset: 01-11-2018 Unclassified (1 source) Patient encounter status 01-06-2025 Unclassified (1 source) Subacute cough; Translations: [Subacute cough] Onset: 04-24-2025 Unclassified (2 sources) Annual Exam; Translations: [Annual Exam] Onset: 10-24-2024 Past or Other Problems Problem Classification Problem Date Documented Da te Episodic/Chronic Adjustment disorders (20 sources) Adjustment disorder with anxious mood; Translations: [Adjustment disorder with anxiety] Resolved: 3 Chronic Fracture of upper limb (17 sources) Fracture at wrist and/or hand level; Translations: [Closed fracture of carpal bone, unspecified] Resolved: 3 Episodic Nutritional deficiencies (20 sources) Vitamin D deficiency; Translations: [Unspecified vitamin D deficiency] Onset: 3 Resolved: 4 12-30-2022 Chronic Open wounds of extremities (20 sources) Injury of great toenail; Translations: [Open wound of toe(s), without mention of complication] Resolved: 1 Episodic Other connective tissue disease (16 sources) Decreased range of cervical spine movement ; Translations: [Other syndromes affecting cervical region] Onset: 3 Resolved: 4 09-05-2023 Episodic Other gastrointestinal disorders (20 sources) H/O: gastrointestinal disease; Translations: [Personal history of other diseases of digestive system] Resolved: 1 Episodic Other hematologic conditions (18 sources) H/O: blood disorder; Translations: [Personal history of diseases of blood and blood-forming organs] Resolved: 2 Episodic Residual codes; unclassified (20 sources) Insomnia; Translations: [Insomnia, unspecified] Onset: 3 12-30-2022 Episodic Residual codes; unclassified (20 sources) History of influenza vaccination; Translations: [Other specified conditions influencing health status] Resolved: 1 Episodic Residual codes; unclassified (1 source) Influenza vaccination declined; Translations: [Immunization not carried out because of patient refusal] 03-12-2024 Episodic Spondylosis; intervertebral disc disorders; other back problems (20 sources) Neck pain; Translations: [Cervicalgia] Onset: 3 Resolved: 4 12-30-2022 Episodic Unclassified (1 source) Subacute cough; Translations: [Subacute cough] Onset: 5 Viral infection (20 sources) Disease caused by 2019-nCoV; Translations: [Other specified viral infection] Onset: 3 12-30-2022 Episodic Results Test Name Value Interpretation Reference Range Facility Bacteria Ur Culton 5 Bacteria identified Cx Nom (U) ORGANISM ID: 1 10,000 -<50,000 CFU/ml Streptococcus anginosus No susceptibility testing done. ORGANISM ID: 2 <10,000 CFU/ml Normal urogenital lucia Normal [facility] Comment on above: Performed By: #### 6 30-4 #### [facility] CLIA [id number] [address] [place] [address] OF [facility] CNOVon 04-28-2025 CNOV Office Visit (OBGYWM) KIA CRESPO ([id number]) 1965 F Date Time Provider Department 04/28/25 3:20 PM HANNY LOCKE OBGYWM During your visit today, we recorded the following information about you: Blood pressure Weight Height 138/86 75.8 kg 1.6 m Hanny Locke MD 04/28/2025 3:48 PM Signed Ironworker offered: Patient declines. Adam is a 59 year old who presents for an annual gynecologic exam . Has some vulvar itching x 6 weeks. Has tried topical hydrocortisone with some relief. No new soaps/detergents. Pt reports itching and some discomfort with urination. Postmenopausal: Yes HRT use: No. Still get period: No LMP: Menopause symptoms: Hot flashes; Night sweats; Vaginal dryness Time with current partner: 32 years Number of lifetime partners: 5 control frequency: Always HPV vaccine: No; Last pap smear: 2020 History of abnormal pap: No, all prior PAP smears have been normal Bothersome pelvic pain: No Last mammogram: 2024 normal History of abnormal mammogram: No OB History Gravida5 Para2 Term2 Preterm0 AB0 Living2 SAB0 IAB0 Ectopic0 Multiple0 Live Births0 Comment: 2 boys Dependency Director History LMP: 10/04/2016, Perimenopausal Age at Menarche: 13 Age at First : Age at Menopause: Dependency Director History Comments: Sexual Activity: Yes; Male Contraception: Tubal Ligation PAST MEDICAL HISTORY Diagnosis Date Anxiety Hyperlipemia Hypothyroid PAST SURGICAL HISTORY Procedure Laterality Date ANKLE SURGERY HX Left 01/17/2018 plates and screws placed , LOW CERV, IN-HOSP CAR x2 D+C 06/03/2021 HYSTEROSCOPY- benign [facility] TUBAL LIGATION HX FAMILY HISTORY Problem Relation Age of Onset Breast Cancer Mother Hypertension Mother Hyperlipidemia Mother Hyperlipidemia Father Hypertension Brother Breast Cancer Maternal Grandmother Hypertension Maternal Grandfather Diabetes Paternal Grandmother SOCIAL HISTORY Social History Tobacco Use Smoking status: Former Smokeless tobacco: Never Tobacco comments: 6 months in college Vaping Use Vaping status: Never Used Substance Use Topics Alcohol use: Yes Comment: social Drug use: No REVIEW OF SYSTEMS Abdomen: No abdominal pain, nausea, vomiting, diarrhea, or constipation. No bloating, early satiety, indigestion, or increased flatulence. Bladder: No dysuria, gross hematuria, urinary frequency, urinary urgency, or incontinence Breast: No breast lumps, nipple d/c, overlying skin changes, redness or skin retraction Allergies and current medication updated:Yes SENSITIVE EXAM: The sensitive examination was discussed with the Patient or Patient's Authorized Research Assistant. As applicable, any other physician, advance practice provider, medical student, or other health professional student that will be observing or involved in the sensitive examination for educational or training purposes was discussed with the Patient or Authorized Research Assistant. The Patient or Authorized Research Assistant has agreed to proceed with the sensitive examination. (Sensitive examination includes inspection and/or palpation of the breasts, pelvis, prostate and anorectal regions). EXAM: BP 138/86 Ht 5' 3 (1.60m) Wt 167 lb (75.8kg) LMP 10/04/2016 BMI 29.59 kg/(m2). GENERAL: pleasant, female in no apparent distress HEENT: Normocephalic, atraumatic, mucus membranes moist, and no lesions NECK: Supple, full range of motion, no adenopathy, and thyroid normal DERMATOLOGY: Normal, without lesions, non-icteric, and non-hirsute BREAST: soft, non-tender, symmetric, no dominant mass, normal nipple-areolar complex, no lymphadenopathy, and no nipple discharge CHEST: Normal inspiratory effort ABDOMEN: soft, non-tender, and no masses PELVIC: external genitalia normal, normal Bartholin's glands, urethra, [place]'s glands, no vulvar lesions, no cervical lesions, good vaginal support, physiologic discharge present, normal appearing perineal body and perianal region BIMANUAL: uterus normal size, shape and consistency, no adnexal masses, and non-tender RECTOVAGINAL: deferred. NEURO: alert and oriented x3,exam grossly non-focal EXTREMITIES: normal ASSESSMENT/PLAN: (Z01.419) Encounter for gynecological examination (general) (routine) without abnormal findings (primary encounter diagnosis) (Z11.51) Encounter for screening for human papillomavirus (HPV) (Z12.4) Pap smear for cervical cancer screening (Z12.31) Encounter for screening mammogram for breast cancer (R30.0) Dysuria (N76.2) Acute vulvitis 1) Health maintenance: Pap done with HPV. Mammogram ordered Mammogram up to date Nutrition, exercise and routine health maintenance exams reviewed. Colon cancer screening: up to date with screening 2) Follow up one year or sooner as needed 3) lotrisone for contact dermatitis?? (more content not included)... Normal [facility] HIGH RISK HUMAN PAPILLOMA MIRANDA (HPV), PCR FOR DETECTION AND GENOTYPINGon 04-28-2025 HPV 16 Ag Ql (Unsp spec) Not detected Normal Not detected [facility] Comment on above: Order Comment: Speci men Type: FLUID SPECIMEN Ordering Facility: [facility] Address: [address] [place] [address] Performed By: #### H PVHRT #### [facility] CLIA [id number] [address] [place] [address] [place] HPV 18 Ag Ql (Unsp spec) Not detected Normal Not detected [facility] Comment on above: Order Comment: Speci men Type: FLUID SPECIMEN Ordering Facility: [facility] Address: [address] [place] [address] Performed By: #### H PVHRT #### [facility] CLIA [id number] [address] [place] [address] [place] HPV 31+33+35+39+45+51+5 2+56+58+59+66+68 DNA TAPAN+probe Ql (Cvx) Not detected Normal Not detected [facility] Comment on above: Order Comment: Speci men Type: FLUID SPECIMEN Ordering Facility: [facility] Address: [address] [place] [address] Result Comment: High Risk HPV Other Type includes HPV types 31, 33, 35, 39, 45, 51, 52, 56, 58, 59, 66 and 68. Performed By: #### H PVHRT #### [facility] CLIA [id number] [address] [place] [address] [place] JARETT SCREENING W TOMOon 04-28 JARETT SCREENING W OLE * * *Final Report* * * DATE OF EXAM: Apr 28 2025 2:43PM [facility] 0582 - JARETT SCREENING W OLE / PROCEDURE REASON: Breast screening * * * * Physician Interpretation * * * * RESULT: [place] [address] #[id number] - JARETT SCREENING W OLE HISTORY: 59 year-old patient presents for screening. Patient is asymptomatic in both breasts. Patient states no personal history of breast cancer. The patient has a family history of breast cancer. COMPARISON STUDIES: The present examination has been compared to prior imaging studies dated 06/27/2019 (mammogram), 01/19/2021 (mammogram) and 07/29/2022 (mammogram). MAMMOGRAM TECHNIQUE: The study was acquired using full field digital technology and interpreted from soft copy. Digital Breast Tomosynthesis (DBT) images were obtained and used to assist in the interpretation of this examination. MAMMOGRAM FINDINGS: There are scattered areas of fibroglandular density. No suspicious masses, calcifications or other abnormalities are seen in either breast. There are no significant interval changes. IMPRESSION: There is no mammographic evidence of malignancy in either breast. Routine screening mammogram is recommended. Annual mammogram will be due in 1 year. BI-RADS Category 1: Negative RISK: Based on the Tyrer-Cuzick (TC) risk assessment model, this patient has a 18.1% lifetime risk of developing breast cancer, meaning they are at average risk for developing breast cancer. However, this is only an estimate based on available history provided on the patient's questionnaire. We encourage all patients to talk with their providers about these results, further recommendations for managing breast health, and appropriate supplemental screening options if the patient has dense breast tissue. Interpreting Radiologist: Yvette Jacques M.D. Electronically signed on: 04/28/2025 Insurance Verification Specialist: GABRIELLA Transcribe Date/Time: Apr 28 2025 2:33P Dictated by: YVETTE JACQUES MD This examination was interpreted and the report reviewed and electronically signed by: YVETTE JACQUES MD on Apr 28 2025 3:40PM EST [id number] Normal [facility] PAP TESTon 04-28-2025 ADEQUACY Satisfactory for interpretation. Normal [facility] Comment on above: Order Comment: Speci men Type: FLUID SPECIMEN Ordering Facility: [facility] Address: [address] [place] [address] Performed By: #### L [id number] #### [facility] CLIA [id number] [address] [place] [address] MAIN LAB CLIA [id number] [address] [place] [address] CASE REPORT Normal [facility] Comment on above: Order Comment: Speci men Type: FLUID SPECIMEN Ordering Facility: [facility] Address: [address] [place] [address] Result Comment: Gyne cologic Cytology Report Case: [id number] Authorizing Provider: Hanny Locke, Collected: 04/28/2025 03:28 PM Ordering Location: OB/Gynecology Received: 04/28/2025 04:45 PM First Screen: Mohorcic, Nina, CT, ASCP Specimen: Pap Test, ThinPrep, Cervix Performed By: #### L [id number] #### [facility] CLIA [id number] [address] [place] [address] [place] [facility] CLIA [id number] [address] [place] [address] [place] CLINICAL HISTORY, CYTOLOGY, RAIL SPLITTER Routine Exam Normal [facility] Comment on above: Order Comment: Speci men Type: FLUID SPECIMEN Ordering Facility: [facility] Address: [address] [place] [address] Result Comment: Post Menopausal Performed By: #### L [id number] #### [facility] CLIA [id number] [address] [place] [address] [place] [facility] CLIA [id number] [address] [place] [address] OF [place] CYTOLOGY PAP OTHER INTERPRETATION Atrophic specimen. Normal [facility] Comment on above: Order Comment: Speci men Type: FLUID SPECIMEN Ordering Facility: [facility] Address: [address] [place] [address] Performed By: #### L [id number] #### [facility] CLIA [id number] [address] [place] [address] [place] [facility] CLIA [id number] [address] [place] [address] [place] FINAL PERFORMING LAB Normal [facility] Comment on above: Order Comment: Speci men Type: FLUID SPECIMEN Ordering Facility: [facility] Address: [address] [place] [address] Result Comment: Tech nical component, parking manager screening performed at: [facility], [address] [place] [address] CLIA: [id number] Diagnostic interpretation performed at: [facility], [address] [place] [address] CLIA# [id number] [employer] Machine Operator: Petra Reynoso MD Performed By: #### L [id number] #### [facility] CLIA [id number] [address] [place] [address] [place] [facility] CLIA [id number] [address] [place] [address] [place] INTERPRETATION, CYTOLOGY, RAIL SPLITTER Normal [facility] Comment on above: Order Comment: Speci men Type: FLUID SPECIMEN Ordering Facility: [facility] Address: [address] [place] [address] Result Comment: Nega tive for intraepithelial lesion or malignancy. at 1003 EDT Performed By: #### L [id number] #### [facility] CLIA [id number] [address] [place] [address] MAIN LAB CLIA [id number] [address] [place] [address] STATES [facility] PAP DISCLAIMER COMMENT The Pap Smear is a screening test for cervical cancer. False negative results occur with all screening tests, emphasizing the need for rescreening at recommended intervals, and clinical correlation. Normal [facility] Comment on above: Order Comment: Speci men Type: FLUID SPECIMEN Ordering Facility: [facility] Address: [address] [place] [address] Performed By: #### L [id number] #### [facility] CLIA [id number] [address] [place] [address] MAIN LAB CLIA [id number] [address] [place] [address] PAP CLIENT RELATIONS ASSOCIATE COMMENT This specimen has been analyzed by the FDA-approved Evoz System, which uses digital imaging and an enhanced artificial intelligence image analysis algorithm to identify paredes of interest on the microscopic slide, to assist the credentialing assistant and pathologist in evaluating cells on ThinPrep Pap tests. Following analysis, paredes of interest on the microscopic slide selected by the algorithm are reviewed by a credentialing assistant. If a sample requires hierarchical review, the pathologist will review the same paredes of interest selected by the algorithm prior to final interpretation. Normal [facility] Comment on above: Order Comment: Speci men Type: FLUID SPECIMEN Ordering Facility: [facility] Address: [address] [place] [address] Performed By: #### L [id number] #### [facility] CLIA [id number] [address] [place] [address] [place] [facility] CLIA [id number] [address] [place] CBC (INCLUDES DIFF/PLT)on Basophils (Bld) [#/Vol] 0.038 10*3/uL Normal 0-200 [facility] Comment on above: Performed By: #### 6 399, 76849, 84865, 7600 #### [facility] of [address], [address] [place] [address] Loan Inspector: Lb Perez MD Basophils/100 WBC (Bld) 0.8 % Normal [facility] Comment on above: Performed By: #### 6 399, 68682, 55759, 7600 #### [facility] [place] [address] Loan Inspector: Lb Perez MD Eosinophils (Bld) [#/Vol] 0.197 10*3/uL Normal 15-500 [facility] Comment on above: Performed By: #### 6 399, 18228, 13284, 7600 #### [facility] of [place] [address] Loan Inspector: Lb Perez MD Eosinophils/100 WBC (Bld) 4.2 % Normal [facility] Comment on above: Performed By: #### 6 399, 53110, 79908, 7600 #### [facility] of [place] [address] Loan Inspector: Lb Perez MD Erythrocyte distribution width (RBC) [Ratio] 13.5 % Normal 11.0-15.0 [facility] Comment on above: Performed By: #### 6 399, 89972, 79046, 7600 #### [facility] of [place] [address] Loan Inspector: Lb Perez MD Hematocrit (Bld) [Volume fraction] 40.4 % Normal 35.0-45.0 [facility] Comment on above: Performed By: #### 6 399, 21474, 61530, 7600 #### [facility] of [place] [address] Loan Inspector: Lb Perez MD Hemoglobin (Bld) [Mass/Vol] 13.4 g/dL Normal 11.7-15.5 [facility] Comment on above: Performed By: #### 6 399, 19979, 84800, 7600 #### [facility] of [address], [address] [place] [address] Loan Inspector: Lb Perez MD Lymphocytes (Bld) [#/Vol] 1.753 10*3/uL Normal 850-3900 [facility] Comment on above: Performed By: #### 6 399, 55317, 47766, 7600 #### [facility] of [place] [address] Loan Inspector: Lb Perez MD Lymphocytes/100 WBC (Bld) 37.3 % Normal [facility] Comment on above: Performed By: #### 6 399, 65590, 07962, 7600 #### [facility] of [place] [address] Loan Inspector: Lb Perez MD MCH (RBC) [Entitic mass] 31.6 pg Normal 27.0-33.0 [facility] Comment on above: Performed By: #### 6 399, 73558, 54407, 7600 #### [facility] of [place] [address] Loan Inspector: Lb Perez MD MCHC (RBC) [Mass/Vol] 33.2 g/dL Normal 32.0-36.0 [facility] Comment on above: Result Comment: For adults, a slight decrease in the calculated MCHC value (in the range of 30 to 32 g/dL) is most likely not clinically significant; however, it should be interpreted with caution in correlation with other red cell parameters and the patient's clinical condition. Performed By: #### 6 399, 11190, 77945, 7600 #### [facility] of [place] [address] Loan Inspector: Lb Perez MD MCV (RBC) [Entitic vol] 95.3 fL Normal 80.0-100.0 [facility] Comment on above: Performed By: #### 6 399, 99966, 58780, 7600 #### [facility] of [place] [address] Loan Inspector: Lb Perez MD Monocytes (Bld) [#/Vol] 0.39 10*3/uL Normal 200-950 [facility] Comment on above: Performed By: #### 6 399, 99277, 30343, 7600 #### [facility] of [place] [address] Loan Inspector: Lb Perez MD Monocytes/100 WBC (Bld) 8.3 % Normal [facility] Comment on above: Performed By: #### 6 399, 77792, 08750, 7600 #### [facility] of [place] [address] Loan Inspector: Lb Perez MD Neutrophils (Bld) [#/Vol] 2.322 10*3/uL Normal 8174-6076 [facility] Comment on above: Performed By: #### 6 399, 02117, 25455, 7600 #### [facility] of [place] [address] Loan Inspector: Lb Perez MD Neutrophils/100 WBC (Bld) 49.4 % Normal [facility] Comment on above: Performed By: #### 6 399, 48319, 52358, 7600 #### [facility] of [place] [address] Loan Inspector: Lb Perez MD Platelet mean volume (Bld) [Entitic vol] 10.8 fL Normal 7.5-12.5 [facility] Comment on above: Performed By: #### 6 399, 67104, 98526, 7600 #### [facility] of [place] [address], [address] [place] [address] Loan Inspector: Lb Perez MD Platelets (Bld) [#/Vol] 284 10*3/uL Normal 140-400 [facility] Comment on above: Performed By: #### 6 399, 43345, 57847, 7600 #### [facility] of [place] [address] [address] , [address] [place] [address] Loan Inspector: Lb Perez MD RBC (Bld) [#/Vol] 4.24 10*6/uL Normal 3.80-5.10 [facility] Comment on above: Performed By: #### 6 399, 29382, 49475, 7600 #### [facility] of [place] [address] [address] , [address] [place] [address] Loan Inspector: Lb Perez MD WBC (Bld) [#/Vol] 4.7 10*3/uL Normal 3.8-10.8 [facility] Comment on above: Performed By: #### 6 399, 24382, 92930, 7600 #### [facility] of [place] [address] [address] , [address] [place] [address] Loan Inspector: Lb Perez MD COMPREHENSIVE METABOLIC PANE L W/ANION GAPon 04-23-2025 ALBUMIN Normal [facility] Comment on above: Performed By: #### 6 399, 85249, 52966, 7600 #### [facility] of [place] [address] [address] , [address] [place] [address] Loan Inspector: Lb Perez MD ALKALINE PHOSPHATASE Normal [facility] Comment on above: Performed By: #### 6 399, 86801, 86805, 7600 #### [facility] of [place] [address] [address] , [address] [place] [address] Loan Inspector: Lb Perez MD ALT Normal [facility] Comment on above: Performed By: #### 6 399, 71693, 85458, 7600 #### [facility] of [place] [address] [address] , [address] [place] [address] Loan Inspector: Lb Perez MD AST Normal [facility] Comment on above: Performed By: #### 6 399, 41160, 51223, 7600 #### [facility] of [place] [address] [address] , [address] [place] [address] Loan Inspector: Lb Perez MD BILIRUBIN, TOTAL Normal [facility] Comment on above: Performed By: #### 6 399, 74692, 16558, 7600 #### [facility] of [place] [address] [address] , [address] [place] [address] Loan Inspector: Lb Perez MD CALCIUM Normal [facility] Comment on above: Performed By: #### 6 399, 69245, 46950, 7600 #### [facility] of [address] [place] [address] Loan Inspector: Lb Perez MD CARBON DIOXIDE Normal [facility] Comment on above: Performed By: #### 6 399, 60942, 84530, 7600 #### [facility] of [place] [address] [address] , [address] [place] [address] Loan Inspector: Lb Perez MD CHLORIDE Normal [facility] Comment on above: Performed By: #### 6 399, 41287, 64405, 7600 #### [facility] of [address] [place] [address] Loan Inspector: Lb Perez MD CREATININE Normal [facility] Comment on above: Performed By: #### 6 399, 72890, 49597, 7600 #### [facility] of [place] [address] [address] , [address] [place] [address] Loan Inspector: Lb Perez MD EGFR Normal [facility] Comment on above: Performed By: #### 6 399, 33708, 82674, 7600 #### [facility] of [place] [address] [address] [place] [address] Loan Inspector: Lb Perez MD ELECTROLYTE BALANCE Normal [facility] Comment on above: Performed By: #### 6 399, 55556, 74728, 7600 #### [facility] of [address] , [address] [place] [address] Loan Inspector: Lb Perez MD GLUCOSE Normal [facility] Comment on above: Performed By: #### 6 399, 62805, 67438, 7600 #### [facility] of [place] [address] [address] , [address] [place] [address] Loan Inspector: bL Perez MD POTASSIUM Normal [facility] Comment on above: Performed By: #### 6 399, 95189, 68773, 7600 #### [facility] of [address] , [address] [place] [address] Loan Inspector: Lb Perez MD PROTEIN, TOTAL Normal [facility] Comment on above: Performed By: #### 6 399, 97520, 61017, 7600 #### [facility] of [address], [address] [place] [address] Loan Inspector: Lb Perez MD SODIUM Normal [facility] Comment on above: Performed By: #### 6 399, 37545, 54523, 7600 #### [facility] of [address], [address] [place] [address] Loan Inspector: Lb Perez MD UREA NITROGEN (BUN) Normal [facility] Comment on above: Performed By: #### 6 399, 25899, 74981, 7600 #### [facility] of [address], [address] [place] [address] Loan Inspector: Lb Perez MD LIPID PANEL, [facility] 10- CHOL/HDLC RATIO Normal [facility] Comment on above: Order Comment: FASTI NG:YES FASTING: YES Performed By: #### 6 399, 53721, 56213, 7600 #### [facility] of [address], [address] [place] [address] Loan Inspector: Lb Perez MD CHOLESTEROL, TOTAL Normal [facility] Comment on above: Order Comment: FASTI NG:YES FASTING: YES Performed By: #### 6 399, 02126, 64960, 7600 #### [facility] of [address], [address] [place] [address] Loan Inspector: Lb Perez MD HDL CHOLESTEROL Normal [facility] Comment on above: Order Comment: FASTI NG:YES FASTING: YES Performed By: #### 6 399, 77696, 57011, 7600 #### [facility] of [address], [address] [place] [address] Loan Inspector: Lb Perez MD LDL-CHOLESTEROL Normal [facility] Comment on above: Order Comment: FASTI NG:YES FASTING: YES Performed By: #### 6 399, 16138, 72742, 7600 #### [facility] of [address], [address] [place] [address] Loan Inspector: Lb Perez MD NON HDL CHOLESTEROL Normal [facility] Comment on above: Order Comment: FASTI NG:YES FASTING: YES Performed By: #### 6 399, 33111, 20172, 7600 #### [facility] of [address], [address] [place] [address] Loan Inspector: Lb Perez MD TRIGLYCERIDES Normal [facility] Comment on above: Order Comment: FASTI NG:YES FASTING: YES Performed By: #### 6 399, 61530, 21990, 7600 #### [facility] of [address], [address] [place] [address] Loan Inspector: Lb Perez MD TSH W/REFLEX TO FT4on 2024 TSH W/REFLEX TO FT4 Normal [facility] Comment on above: Performed By: #### 6 399, 56639, 51702, 7600 #### [facility] of [address], [address] [place] [address] Loan Inspector: Lb Perez MD VITAMIN B12on 04-23-2025 Cobalamin (Vitamin B12) [Mass/Vol] 1126 pg/mL High 200-1100 [facility] Comment on above: Performed By: #### 6 399, 94726, 26164, 7600 #### [facility] of [address], [address] [place], [place] [id number] Loan Inspector: Lb Tate 01-02-2025 CNPN Telephone (OBGYWM) KIA CRESPO ([id number]) 1965 F Date Time Provider Department 01/02/25 HANNY LOCKE OBGYWM During your visit today, we recorded the following information about you: Tiffani Farley 01/02/2025 3:52 PM Signed Patient calling in requesting her yearly mammogram orders. Please review and place if appropriate. Tiffani Farley January 02, 2025 3:51 PM Brisa Haywood RN 01/02/2025 5:15 PM Signed Mammogram w/Ole pending. Please file and will have PSS contact Pt to get scheduled. Brisa Haywood RN Allergies As of Date: 01/02/2025 Noted Allergy Reaction SEASONAL ALLERGIES 12/02/2016 14 - Other: See Comments Comments: Runny nose watery eyes Date Reviewed: 05/30/2022 Reviewed by: Ame Starr MA - Fully Assessed Reason for Visit: Orders [681] Primary Visit Diagnosis:Breast screening [Z12.39] Order(s):JARETT SCREENING W OLE [[id number]] Order #: [id number] FUTURE Prescriptions as of 01/06/2025 - MAGNESIUM CITRATE ORAL Take by mouth. - folic acid/multivit-min/demetrius tein (CENTRUM SILVER ORAL) Take by mouth. - Levothyroxine 50 mcg cap Take 75 mcg by mouth. - atorvastatin (LIPITOR) 10 mg tablet Take 10 mg by mouth once daily. - CALCIUM CARBONATE/VITAMIN D3 (VITAMIN D-3 ORAL) Take 2,000 Units by mouth. - fexofenadine (ALLERGY RELIEF, FEXOFENADINE,) 180 mg tablet Take 180 mg by mouth once daily. - acyclovir 200 mg capsule Take by mouth every 4 hours while awake. - gentriptan 5 mg tablet Take 5 mg by mouth as needed. May repeat in 2 hours if needed - sertraline 100 mg tablet Take 100 mg by mouth once daily. Problem List As Of Date: 01/02/2025 (None) Encounter Status:Closed by YURI LAINEZ on 01/06/25 Normal [facility] BASIC METABOLIC PANEL WITH A ROMAIN PERKINSon 10-24-2024 BUN/CREATININE RATIO SEE NOTE: Normal - [facility] Comment on above: Order Comment: FASTI NG:YES FASTING: YES Result Comment: Not Reported: BUN and Creatinine are within reference range. Performed By: #### 3 8027, 43695 #### [facility] [place] [address] Loan Inspector: Lb Perez MD Calcium [Mass/Vol] 9.2 mg/dL Normal 8.6-10.4 [facility] Comment on above: Order Comment: FASTI NG:YES FASTING: YES Performed By: #### 3 7727, 34848 #### [facility] [place] [address] Loan Inspector: Lb Perez MD Chloride [Moles/Vol] 106 mmol/L Normal 98-110 [facility] Comment on above: Order Comment: FASTI NG:YES FASTING: YES Performed By: #### 3 1827, 56962 #### [facility] [place] [address] Loan Inspector: Lb Perez MD CO2 [Moles/Vol] 24 mmol/L Normal 20-32 [facility] Comment on above: Order Comment: FASTI NG:YES FASTING: YES Performed By: #### 3 1827, 83060 #### [facility] [place] [address] Loan Inspector: Lb Perez MD Creatinine [Mass/Vol] 0.90 mg/dL Normal 0.50-1.05 [facility] Comment on above: Order Comment: FASTI NG:YES FASTING: YES Performed By: #### 3 7527, 33027 #### [facility] [address], [address] [place] [address] Loan Inspector: Lb Perez MD ELECTROLYTE BALANCE 11 mmol/L (calc) Normal 7-17 [facility] Comment on above: Order Comment: FASTI NG:YES FASTING: YES Performed By: #### 3 6627, 43921 #### [facility] [address], [address] [place] [address] Loan Inspector: Lb Perez MD GFR/1.73 sq M.predicted among non-blacks MDRD (S/P/Bld) [Vol rate/Area] 73 mL/min/{1.73_m2} Normal > OR = 60 [facility] Comment on above: Order Comment: FASTI NG:YES FASTING: YES Performed By: #### 3 3127, 52119 #### [facility] [address], [address] [place] [address] Loan Inspector: Lb Perez MD Glucose [Mass/Vol] 95 mg/dL Normal 65-99 [facility] Comment on above: Order Comment: FASTI NG:YES FASTING: YES Result Comment: Fasting reference interval Performed By: #### 3 8127, 88312 #### [facility] [place] [address] Loan Inspector: Lb Perez MD Potassium [Moles/Vol] 4.4 mmol/L Normal 3.5-5.3 [facility] Comment on above: Order Comment: FASTI NG:YES FASTING: YES Performed By: #### 3 0527, 71287 #### [facility] [address], [address] [place] [address] Loan Inspector: Lb Perez MD Sodium [Moles/Vol] 141 mmol/L Normal 135-146 [facility] Comment on above: Order Comment: FASTI NG:YES FASTING: YES Performed By: #### 3 8327, 46439 #### [facility] [address], [address] [place] [address] Loan Inspector: Lb Perez MD Urea nitrogen [Mass/Vol] 17 mg/dL Normal 7-25 [facility] Comment on above: Order Comment: FASTI NG:YES FASTING: YES Performed By: #### 3 6127, 18615 #### [facility] [address], [address] Loan Inspector: Lb Perez MD TSH W/REFLEX TO FT4on 2024 TSH W/REFLEX TO FT4 1.66 mIU/L Normal 0.40-4.50 [facility] Comment on above: Performed By: #### 3 6127, 86734 #### [facility] [address] [place] [address], [address] [place] [address] Loan Inspector: Lb Perez MD CBC panel Auto (Bld)on 03-11 Erythrocyte distribution width (RBC) [Ratio] 12.5 % Normal 11.5-14.5 [facility] Comment on above: Performed By: #### 5 8410-2 #### GLENN ABDULLAHI ([id number]) [facility] ([facility]) [address] [place] [address] 31484 Hematocrit (Bld) [Volume fraction] 40.6 % Normal 36.0-46.0 [facility] Comment on above: Performed By: #### 5 8410-2 #### GLENN ABDULLAHI ([id number]) [facility] ([facility]) [address] [place] [address] 91766 Hemoglobin (Bld) [Mass/Vol] 13.5 g/dL Normal 12.0-16.0 [facility] Comment on above: Performed By: #### 5 8410-2 #### GLENN ABDULLAHI ([id number]) [facility] ([facility]) [address] [place] [address] 81882 MCH (RBC) [Entitic mass] 31.5 pg Normal 26.0-34.0 [facility] Comment on above: Performed By: #### 5 8410-2 #### GLENN ABDULLAHI ([id number]) [facility] ([facility]) [address] [place] [address] 22906 MCHC (RBC) [Mass/Vol] 33.3 g/dL Normal 32.0-36.0 [facility] Comment on above: Performed By: #### 5 8410-2 #### GLENN ABDULLAHI ([id number]) [facility] ([facility]) [address] [place] [address] 73709 MCV (RBC) [Entitic vol] 95 fL Normal 80-100 [facility] Comment on above: Performed By: #### 5 8410-2 #### GLENN ABDULLAHI ([id number]) [facility] ([facility]) [address] [place] [address] 06897 Nucleated RBC/100 WBC (Bld) [Ratio] 0.0 /100 WBCs Normal 0.0-0.0 [facility] Comment on above: Performed By: #### 5 8410-2 #### GLENN ABDULLAHI ([id number]) [facility] ([facility]) [address] [place] [address] 91980 Platelets (Bld) [#/Vol] 275 x10*3/uL Normal 150-450 [facility] Comment on above: Performed By: #### 5 8410-2 #### GLENN ABDULLAHI ([id number]) [facility] ([facility]) [address] [place] [address] 32119 RBC (Bld) [#/Vol] 4.28 x10*6/uL Normal 4.00-5.20 [facility] Comment on above: Performed By: #### 5 8410-2 #### GLENN ABDULLAHI ([id number]) [facility] ([facility]) [address] [place] [address] 12988 WBC (Bld) [#/Vol] 4.5 x10*3/uL Normal 4.4-11.3 [facility] Comment on above: Performed By: #### 5 8410-2 #### GLENN ABDULLAHI ([id number]) [facility] ([facility]) [address] [place] [address] 69280 Comprehensive metabolic 2000 panelon 03-11-2024 Albumin BCP dye [Mass/Vol] 4.3 g/dL Normal 3.4-5.0 [facility] Comment on above: Performed By: #### 2 4323-8 #### GLENN ABDULLAHI ([id number]) [facility] ([facility]) [address] [place] [address] 42358 ALP [Catalytic activity/Vol] 74 U/L Normal 33-110 [facility] Comment on above: Performed By: #### 2 4323-8 #### GLENN ABDULLAHI ([id number]) [facility] ([facility]) [address] [place] [address] 54972 ALT With P-5'-P [Catalytic activity/Vol] 18 U/L Normal 7-45 [facility] Comment on above: Result Comment: Urszula ents treated with Sulfasalazine may generate falsely decreased results for ALT. Performed By: #### 2 4322-8 #### GLENN ADBULLAHI ([id number]) [facility] ([facility]) [address] [place] [address] 47609 Anion gap [Moles/Vol] 11 mmol/L Normal 10-20 [facility] Comment on above: Performed By: #### 2 4322-8 #### GLENN ABDULLAHI ([id number]) [facility] ([facility]) [address] [place] [address] 80165 AST With P-5'-P [Catalytic activity/Vol] 16 U/L Normal 9-39 [facility] Comment on above: Performed By: #### 2 4322-8 #### GLENN ABDULLAHI ([id number]) [facility] ([facility]) [address] [place] [address] 75831 Bilirubin [Mass/Vol] 0.6 mg/dL Normal 0.0-1.2 [facility] Comment on above: Performed By: #### 2 4322-8 #### GLENN ABDULLAHI ([id number]) [facility] ([facility]) [address] [place] [address] 66099 Calcium [Mass/Vol] 9.3 mg/dL Normal 8.6-10.3 [facility] Comment on above: Performed By: #### 2 4322-8 #### GLENN ABDULLAHI ([id number]) [facility] ([facility]) [address] [place] [address] Chloride [Moles/Vol] 106 mmol/L Normal 98-107 [facility] Comment on above: Performed By: #### 2 432-8 #### GLENN ABDULLAHI ([id number]) [facility] ([facility]) [address] [place] [address] CO2 [Moles/Vol] 28 mmol/L Normal 21-32 [facility] Comment on above: Performed By: #### 2 4323-8 #### GLENN ABDULLAHI ([id number]) [facility] ([facility]) [address] [place] [address] 01848 Creatinine [Mass/Vol] 0.77 mg/dL Normal 0.50-1.05 [facility] Comment on above: Performed By: #### 2 432-8 #### GLENN ABDULLAHI ([id number]) [facility] ([facility]) [address] [place] [address] 17322 Glomerular filtration rate/1.73 sq M.predicted 89 mL/min/1.73m*2 Normal >60 [facility] Comment on above: Result Comment: Calc ulations of estimated GFR are performed using the 2020 CKD-EPI Study Refit equation without the race variable for the IDMS-Traceable creatinine methods. https://jasn.asnjournals.org/content//ASN.54853715 88 Performed By: #### 2 4323-8 #### GLENN ABDULLAHI ([id number]) [facility] ([facility]) [address] [place] [address] 98239 Glucose [Mass/Vol] 97 mg/dL Normal 74-99 [facility] Comment on above: Performed By: #### 2 432-8 #### GLENN ABDULLAHI ([id number]) [facility] ([facility]) [address] [place] [address] 63967 Potassium [Moles/Vol] 4.3 mmol/L Normal 3.5-5.3 [facility] Comment on above: Performed By: #### 2 432-8 #### GLENN ABDULLAHI ([id number]) [facility] ([facility]) [address] [place] [address] Protein [Mass/Vol] 6.7 g/dL Normal 6.4-8.2 [facility] Comment on above: Performed By: #### 2 4323-8 #### GLENN ABDULLAHI ([id number]) [facility] ([facility]) [facility] [place] [address] Sodium [Moles/Vol] 141 mmol/L Normal 136-145 [facility] Comment on above: Performed By: #### 2 4323-8 #### GLENN ABDULLAHI ([id number]) [facility] ([facility]) [address] [place] [address] 52820 Urea nitrogen [Mass/Vol] 20 mg/dL Normal 6-23 [facility] Comment on above: Performed By: #### 2 4323-8 #### GLENN ABDULLAHI ([id number]) [facility] ([facility]) [address] [place] [address] 82796 Lipid 1996 panelon 4 Cholesterol [Mass/Vol] 180 mg/dL Normal 0-199 [facility] Comment on above: Result Comment: Age Desirable Borderline High High 0-19 Y 0 - 169 170 - 199 >/= 200 20-24 Y 0 - 189 190 - 224 >/= 225 >24 Y 0 - 199 200 - 239 >/= 240 All ranges are based on fasting samples. Specific therapeutic targets will vary based on patient-specific cardiac risk. Pediatric guidelines reference:Pediatrics 2011, 128(S5).Adult guidelines reference: NCEP ATPIII Guidelines,ELIU 2001, 258:2486-97 Venipuncture immediately after or during the administration of Metamizole may lead to falsely low results. Testing should be performed immediately prior to Metamizole dosing. Performed By: #### 2 4331-1 #### GLENN ABDULLAHI ([id number]) [facility] ([facility]) [address] [place] [address] 51084 Cholesterol in HDL [Mass/Vol] 66.0 mg/dL Normal [facility] Comment on above: Result Comment: Age Very Low Low Normal High 0-19 Y < 35 < 40 40-45 ---- 20-24 Y ---- < 40 >45 ---- >24 Y ---- < 40 40-60 >60 Performed By: #### 2 4331-1 #### GLENN ABDULLAHI ([id number]) [facility] ([facility]) [address] [place] [address] 96212 Cholesterol in LDL [Mass/Vol] 82 mg/dL Normal <=99 [facility] Comment on above: Result Comment: Near Borderline AGE Desirable Optimal High High Very High 0-19 Y 0 - 109 --- 110-129 >/= 130 ---- 20-24 Y 0 - 119 --- 120-159 >/= 160 ---- >24 Y 0 - 99 100-129 130-159 160-189 >/=190 Performed By: #### 2 4331-1 #### GLENN ABDULLAHI ([id number]) [facility] ([facility]) [address] [place] [address] 76863 Cholesterol in VLDL [Mass/Vol] 32 mg/dL Normal 0-40 [facility] Comment on above: Performed By: #### 2 4331-1 #### GLENN ABDULLAHI ([id number]) [facility] ([facility]) [address] [place] [address] 79921 CHOLESTEROL/HDL RATIO 2.7 Normal [facility] Comment on above: Result Comment: Ref Values Desirable < 3.4 High Risk > 5.0 Performed By: #### 2 4331-1 #### GLENN ABDULLAHI ([id number]) [facility] ([facility]) [address] [place] [address] 88640 NON HDL CHOLESTEROL 114 mg/dL Normal 0-149 [facility] Comment on above: Result Comment: Age Desirable Borderline High High Very High 0-19 Y 0 - 119 120 - 144 >/= 145 >/= 160 20-24 Y 0 - 149 150 - 189 >/= 190 ---- >24 Y 30 mg/dL above LDL Cholesterol goal Performed By: #### 2 4331-1 #### GLENN ADBULLAHI ([id number]) [facility] ([facility]) [address] [place] [address] 76703 Triglyceride [Mass/Vol] 158 mg/dL High 0-149 [facility] Comment on above: Result Comment: Age Desirable Borderline High High Very High 0 D-90 D 19 - 174 ---- ---- ---- 91 D- 9 Y 0 - 74 75 - 99 >/= 100 ---- 10-19 Y 0 - 89 90 - 129 >/= 130 ---- 20-24 Y 0 - 114 115 - 149 >/= 150 ---- >24 Y 0 - 149 150 - 199 200- 499 >/= 500 Venipuncture immediately after or during the administration of Metamizole may lead to falsely low results. Testing should be performed immediately prior to Metamizole dosing. Performed By: #### 2 4331-1 #### GLENN ABDULLAHI ([id number]) [facility] ([facility]) [address] [place] [address] TSH WITH REFLEX TO FREE T4 I F ABNORMALon 03-11-2024 TSH Qn 4.44 m[IU]/L High 0.44-3.98 [facility] Comment on above: Order Comment: TSH t esting is performed using different testing methodology at [facility] than at [facility]. Direct result comparisons should only be made within the same method. Performed By: #### T HYDS #### GLENN ABDULLAHI ([id number]) [facility] ([facility]) [address] [place] [address] Thyroxine.freeon 03-11-2024 Free T4 [Mass/Vol] 1.08 ng/dL Normal 0.61-1.12 [facility] Comment on above: Order Comment: Thyro xine Free testing is performed using different testing methodology at [facility] than at other [facility]. Direct result comparisons should only be made within the same method. Biotin can cause falsely elevated free T4 results. Patients taking a Biotin dose of up to 10 mg/day should refrain from taking Biotin for 24 hours before sample collection. Patient taking a Biotin dose of >10 mg/day should consult with their physician or the laboratory before the blood draw. Performed By: #### 3 024-7 #### GLENN ABDULLAHI ([id number]) [facility] ([facility]) [address] [place] [address] DBT Breast - bilateralon These images are not reportable by radiology and will not be interpreted by Radiologists. IMAGING TSH WITH REFLEX TO FREE T4 I F ABNORMALon 09-05-2023 TSH Qn 1.86 m[IU]/L Normal 0.44-3.98 [facility] Comment on above: Order Comment: TSH t esting is performed using different testing methodology at [facility] than at other [facility]. Direct result comparisons should only be made within the same method. Performed By: #### T HYDS #### GLENN ABDULLAHI ([id number]) [facility] ([facility]) [facility] [place] [address] TSH WITH REFLEX TO FREE T4 I F ABNORMALon 04-04-2023 TSH Qn 4.53 m[IU]/L High 0.44-3.98 [facility] Comment on above: Order Comment: TSH t esting is performed using different testing methodology at [facility] than at other [facility]. Direct result comparisons should only be made within the same method. Performed By: #### T HYDS #### GLENN ABDULLAHI ([id number]) [facility] ([facility]) [address] [place] [address] 09226 Thyroxine.freeon 04-04-2023 Free T4 [Mass/Vol] 0.98 ng/dL Normal 0.61-1.12 [facility] Comment on above: Order Comment: Thyro xine Free testing is performed using different testing methodology at [facility] than [facility]. Direct result comparisons should only be made within the same method. Biotin can cause falsely elevated free T4 results. Patients taking a Biotin dose of up to 10 mg/day should refrain from taking Biotin for 24 hours before sample collection. Patient taking a Biotin dose of >10 mg/day should consult with their physician or the laboratory before the blood draw. Performed By: #### 3 024-7 #### GLENN ABDULLAHI ([id number]) [facility] ([facility]) [facility] [place] [address] PT Progress Noteon PT Progress Note No report was sent Normal [facility] Therapy Communicationon 03-04 Therapy Communication Message KIA VILLANUEVA canceled today 03/29/23. Pt cancel recheck. If she does not return within 30 days she will be d/c per attendance policy. Signatures Electronically signed by : Desi Boo, PT; Mar 29 2023 9:14AM EST (Author) Normal [facility] PT Progress Noteon 3 PT Progress Note Therapy Diagnosis Assessed Neck pain (723.1) (M54.2) Migraine (346.90) (G43.909) Plan Goals: Goals set and discussed today. In 2 weeks, pt will be IND and compliant with HEP for participation throughout POC. , goal met Pain: In 4 weeks, pt will report 50% reduced s/s for ADLs., goal met Range Of Motion/Joint Mobility: In 4 weeks, pt will demo cervical AROM to 35 deg R LF, 70 deg L rot for driving., goal partially met Strength: In 4 weeks, pt will demo 5 /5 MMT of B cervical musculature for improved posture while at work., goal partially met , In 4 weeks, pt will score 5 /50 or less on the NDI to demo improved QOL., goal partially met Planned interventions include: cryotherapy, dry needling, education/instructio n, electrical stimulation, home program, hot pack, kinesiotaping, manual therapy, self care/home management, therapeutic activities, therapeutic exercises and iastm, cupping, BFR. Frequency and duration: 2 time(s) a week, for 4 weeks, for 8 visits. Potential to achieve rehab goals is good Recheck next visit. Assessment Patient confirmed name and date of this session. Pt late to session. Focused on manual therapy d/t time constraints with myofascial restrictions most significant in B UT (L>R). Pt reports dec pain and improved mobility after session. Response to treatment: improved tissue mobility. Adult Risk Screening There are no spiritual/cultural practices/values/nee ds that are important to know Initial Fall Risk Screening: KIA has not fallen in the last 6 months. Her fall did not result in injury. KIA does not have a fear of falling. She does not need assistance with sitting, standing or walking. Does not need assistance walking in her home. She does not need assistance in an unfamiliar setting. The patient is not using an assistive device. Living Will. Living Will: Living will on file. Healthcare POA: No healthcare proxy on file. Declaration of Mental Health Treatment: No mental health treatment on file. Domestic Violence Screen: Does not feel threatened or abused physically, emotionally or sexually. Do you feel UNSAFE? The patient feels safe in the home. Depression/Suicide Screening: During the past 2 weeks, the patient has not felt down, depressed or hopeless. During the past 2 weeks, the patient has not felt little interest or pleasure in doing things. Insurance Insurance reviewed Visit number: 12 Insurance: carmelita Evaluating therapist: Desi Boo PT, DPT PT dx: R29.898 Subjective Precautions: Fall Risk: none Treatment Time in clinic started at 4:26 pm Time in clinic ended at 4:58 pm Total time in clinic is 32 minutes. Total timed code time is 28 minutes. Therapeutic exercise (02219):. supine SCM strength x8 ea supine chin tuck x10 supine cervical rotation 10 sec hold x5 ea UBE: 3/3 L1 B rows with tube: purple, 2x10 B ext with tube: purple, 2x10 SA punch: 3#, B, 2x10 ABC: 3#, x1 cycle wall push up plus: x10 supine cerv ext isometrics: 2x10 supine chin tuck/head lift: 2x10 supine B ER: green band, 2x8 (I- seated) [X] supine horiz abd green band 2x8 (I- seated) [X] seated cervical flexion stretch 2x30 sec Doorway MT stretch 3x20 sec (X). Manual Therapy (50481): timed minutes 28, units 2 . Cupping static and dynamic B UT Dry needle by GL to L UT, LS - Unbilled [X] STW to L UT, LS, med scap border, cervical erector spinae, subocc, scm SOR Manual traction. Modalities:. Theratrac cervical traction [X]. 'Scores and Scales' Signatures Electronically signed by : Desi Boo, PT; Mar 21 2023 4:59PM EST (Author) Normal [facility] PT Progress Noteon 3 PT Progress Note Therapy Diagnosis Assessed Neck pain (723.1) (M54.2) Migraine (346.90) (G43.909) Plan Goals: Goals set and discussed today. In 2 weeks, pt will be IND and compliant with HEP for participation throughout POC. , goal met Pain: In 4 weeks, pt will report 50% reduced s/s for ADLs., goal met Range Of Motion/Joint Mobility: In 4 weeks, pt will demo cervical AROM to 35 deg R LF, 70 deg L rot for driving., goal partially met Strength: In 4 weeks, pt will demo 5 /5 MMT of B cervical musculature for improved posture while at work., goal partially met , In 4 weeks, pt will score 5 /50 or less on the NDI to demo improved QOL., goal partially met Planned interventions include: cryotherapy, dry needling, education/instructio n, electrical stimulation, home program, hot pack, kinesiotaping, manual therapy, self care/home management, therapeutic activities, therapeutic exercises and iastm, cupping, BFR. Frequency and duration: 2 time(s) a week, for 4 weeks, for 8 visits. Potential to achieve rehab goals is good Plan to focus on manual therapy with dry needling. She responded well to cupping today so will also cont that. Cont with strengthening of cervical and periscap regions. Patient will see evaluating PT for reassessment next wk. Assessment More tightness in left UT and paraspinals today during manual treatment -> good response to manual/STW, noting reduced tightness and better cervical mobility after session. She'll resume her current HEP. Response to treatment: decreased pain, improved tissue mobility, improved posture and improved knowledge and understanding of condition. Adult Risk Screening There are no spiritual/cultural practices/values/nee ds that are important to know Initial Fall Risk Screening: KIA has not fallen in the last 6 months. Her fall did not result in injury. KIA does not have a fear of falling. She does not need assistance with sitting, standing or walking. Does not need assistance walking in her home. She does not need assistance in an unfamiliar setting. The patient is not using an assistive device. Living Will. Living Will: Living will on file. Healthcare POA: No healthcare proxy on file. Declaration of Mental Health Treatment: No mental health treatment on file. Domestic Violence Screen: Does not feel threatened or abused physically, emotionally or sexually. Do you feel UNSAFE? The patient feels safe in the home. Depression/Suicide Screening: During the past 2 weeks, the patient has not felt down, depressed or hopeless. During the past 2 weeks, the patient has not felt little interest or pleasure in doing things. Insurance Insurance reviewed Visit number: 11 Insurance: carmelita Evaluating therapist: Desi Boo PT, DPT PT dx: [id number] Subjective Patient reports:. Haven't been able to do much ex at home because of being so busy. My neck seems tighter and has been more sore because of missing a therapy appt and because of all the stress from family stuff. Precautions: Fall Risk: none Treatment Time in clinic started at 0702 Time in clinic ended at 0745 Total time in clinic is 43 minutes. Total timed code time is 41 minutes. Therapeutic exercise (34876): timed minutes 18, units 1 . supine SCM strength x8 ea supine chin tuck x10 supine cervical rotation 10 sec hold x5 ea UBE: 3/3 L1 B rows with tube: purple, 2x10 B ext with tube: purple, 2x10 SA punch: 3#, B, 2x10 ABC: 3#, x1 cycle wall push up plus: x10 supine cerv ext isometrics: 2x10 supine chin tuck/head lift: 2x10 supine B ER: green band, 2x8 (I- seated) [X] supine horiz abd green band 2x8 (I- seated) [X] seated cervical flexion stretch 2x30 sec Doorway MT stretch 3x20 sec (X). Manual Therapy (43481): timed minutes 23, units 2 . Recheck, review HEP, review POC [X] Cupping static and dynamic B UT (X) Dry needle by GL to L UT, LS - Unbilled [X] STW to L UT, LS, med scap border, cervical erector spinae SOR manual traction. Modalities:. Theratrac cervical traction [X]. 'Scores and Scales' Signatures Electronically signed by : Gen Ramirez PTA; Mar 16 2023 8:00AM EST (Author) Electronically signed by : Desi Boo, PT; Mar 16 2023 9:34AM EST [facility] PT Progress Noteon 3 PT Progress Note No report was sent [facility] PT Progress Noteon 3 PT Progress Note No report was sent [facility] Therapy Communicationon Therapy Communication Message KIA VILLANUEVA no showed today . Signatures Electronically signed by : Gen Ramirez PTA; Mar 09 2023 7:39AM EST (Author) [facility] - Chemistry and C hemistry - challengeon 03-07-2023 TSH Qn 9.12 m[IU]/L above high threshold See Below [facility] [place] Work Phone: Comment on above: SOURCE: Reference Ra nge: 0.44 - 3.98 TSH testing is performed using different testing methodology at [facility] than at other [facility]. Direct result comparisons should only be made within the same method. T4 - Free Thyroxine, Serumon 03-07-2023 Free T4 [Mass/Vol] 0.89 ng/dL See Below [facility] Work Phone: Comment on above: SOURCE: Reference Ra nge: 0.61 - 1.12 Thyroxine Free testing is performed using different testing methodology at [facility] than at other [facility]. Direct result comparisons should only be made within the same method.. Biotin can cause falsely elevated free T4 results. Patients taking a Biotin dose of up to 10 mg/day should refrain from taking Biotin for 24 hours before sample collection. Patient taking a Biotin dose of >10 mg/day should consult with their physician or the laboratory before the blood draw. THYROXINE,FREEon 03-07-2023 THYROXINE,FREE 0.89 ng/dL Normal 0.61 - 1.12 [facility] Comment on above: Result Comment: Thyr oxine Free testing is performed using different testing methodology at [facility] than at other [facility]. Direct result comparisons should only be made within the same method. . Biotin can cause falsely elevated free T4 results. Patients taking a Biotin dose of up to 10 mg/day should refrain from taking Biotin for 24 hours before sample collection. Patient taking a Biotin dose of >10 mg/day should consult with their physician or the laboratory before the blood draw. Performed By: #### T 4FRE #### [place] [address] Lab Specimen Source Normal [facility] Comment on above: Performed By: #### T 4FRE #### [place] [address] Performed By: #### T HYDS #### [address] [address] TSH WITH REFLEX TO FREE T4 I F ABNORMALon 03-07-2023 TSH Qn 9.12 m[IU]/L High 0.44 - 3.98 [facility] Comment on above: Result Comment: TSH testing is performed using different testing methodology at [facility] than at other [facility]. Direct result comparisons should only be made within the same method. Performed By: #### T HYDS #### [address] [address] PT Progress Noteon 3 PT Progress Note Therapy Diagnosis Assessed Neck pain (723.1) (M54.2) Migraine (346.90) (G43.909) Plan Goals: Goals set and discussed today. In 2 weeks, pt will be IND and compliant with HEP for participation throughout POC. , goal met Pain: In 4 weeks, pt will report 50% reduced s/s for ADLs., goal met Range Of Motion/Joint Mobility: In 4 weeks, pt will demo cervical AROM to 35 deg R LF, 70 deg L rot for driving., goal partially met Strength: In 4 weeks, pt will demo 5 /5 MMT of B cervical musculature for improved posture while at work., goal partially met , In 4 weeks, pt will score 5 /50 or less on the NDI to demo improved QOL., goal partially met Planned interventions include: cryotherapy, dry needling, education/instructio n, electrical stimulation, home program, hot pack, kinesiotaping, manual therapy, self care/home management, therapeutic activities, therapeutic exercises and iastm, cupping, BFR. Frequency and duration: 2 time(s) a week, for 4 weeks, for 8 visits. Potential to achieve rehab goals is good Plan to focus on manual therapy with dry needling. She responded well to cupping today so will also cont that. Cont with strengthening of cervical and periscap regions. Assessment Patient seen prior to DN for ther-ex and manual treatment to improve tissue mobility, ROM, and postural strength. Good response and tolerance to treatment. Adult Risk Screening There are no spiritual/cultural practices/values/nee ds that are important to know Initial Fall Risk Screening: KIA has not fallen in the last 6 months. Her fall did not result in injury. KIA does not have a fear of falling. She does not need assistance with sitting, standing or walking. Does not need assistance walking in her home. She does not need assistance in an unfamiliar setting. The patient is not using an assistive device. Living Will. Living Will: Living will on file. Healthcare POA: No healthcare proxy on file. Declaration of Mental Health Treatment: No mental health treatment on file. Domestic Violence Screen: Does not feel threatened or abused physically, emotionally or sexually. Do you feel UNSAFE? The patient feels safe in the home. Depression/Suicide Screening: During the past 2 weeks, the patient has not felt down, depressed or hopeless. During the past 2 weeks, the patient has not felt little interest or pleasure in doing things. Insurance Insurance reviewed Visit number: 10 Insurance: carmelita Evaluating therapist: Desi Boo PT, TROY PT dx: [id number] Subjective Patient reports:. Patient reports feeling better this morning. Stated the DN treatment helped before. Precautions: Fall Risk: none Treatment Time in clinic started at 0700 Time in clinic ended at 0750 Total time in clinic is 50 minutes. Total timed code time is 38 minutes. Therapeutic exercise (40663): timed minutes 15, units 1 . supine SCM strength x8 ea supine chin tuck x10 supine cervical rotation 10 sec hold x5 ea UBE: 3/3 L1 B rows with tube: magenta, 2x10 B ext with tube: magenta, 2x10 SA punch: 3#, B, 2x10 ABC: 3#, x1 cycle wall push up plus: x10 supine cerv ext isometrics: 2x10 supine chin tuck/head lift: 2x10 supine B ER: green band, 2x8 (I- seated) [X] supine horiz abd green band 2x8 (I- seated) [X] seated cervical flexion stretch 2x30 sec Doorway MT stretch 3x20 sec (X). Manual Therapy (62186): timed minutes 23, units 2 . Recheck, review HEP, review POC [X] Cupping static and dynamic B UT (X) Dry needle by GL to L UT, LS - Unbilled STW to L UT, LS, med scap border, cervical erector spinae SOR manual traction. Modalities:. Theratrac cervical traction [X]. 'Scores and Scales' Signatures Electronically signed by : Gen Ramirez PTA; Mar 02 2023 7:55AM EST (Author) Electronically signed by : Francois Cano, PT; Mar 02 2023 8:56AM EST [facility] PT Progress Noteon 3 PT Progress Note Therapy Diagnosis Assessed Neck pain (723.1) (M54.2) Migraine (346.90) (G43.909) Plan Goals: Goals set and discussed today. In 2 weeks, pt will be IND and compliant with HEP for participation throughout POC. , goal met Pain: In 4 weeks, pt will report 50% reduced s/s for ADLs., goal met Range Of Motion/Joint Mobility: In 4 weeks, pt will demo cervical AROM to 35 deg R LF, 70 deg L rot for driving., goal partially met Strength: In 4 weeks, pt will demo 5 /5 MMT of B cervical musculature for improved posture while at work., goal partially met , In 4 weeks, pt will score 5 /50 or less on the NDI to demo improved QOL., goal partially met Planned interventions include: cryotherapy, dry needling, education/instructio n, electrical stimulation, home program, hot pack, kinesiotaping, manual therapy, self care/home management, therapeutic activities, therapeutic exercises and iastm, cupping, BFR. Frequency and duration: 2 time(s) a week, for 4 weeks, for 8 visits. Potential to achieve rehab goals is good Plan to focus on manual therapy with dry needling. She responded well to cupping today so will also cont that. Cont with strengthening of cervical and periscap regions. Assessment Patient confirmed name and date of this session. Ms. Eddie Villanueva is progressing well through their POC addressing neck pain causing migraines. Pt has attended 9 sessions since 01/24/23. The pt demonstrates and verbalizes improvements in cervical ROM, periscap and cervical strength, N/T. She does still demo limitation in L rotation and LF ROM, as well as L LF strength. The pt will benefit from continued skilled PT services to address the above stated impairments and functional limitations to maximize participation and ease in household, social, and work related activities. Plan to focus on manual therapy with dry needling. She responded well to cupping today so will also cont that. Cont with strengthening of cervical and periscap regions. Adult Risk Screening There are no spiritual/cultural practices/values/nee ds that are important to know Initial Fall Risk Screening: KIA has not fallen in the last 6 months. Her fall did not result in injury. KIA does not have a fear of falling. She does not need assistance with sitting, standing or walking. Does not need assistance walking in her home. She does not need assistance in an unfamiliar setting. The patient is not using an assistive device. Living Will. Living Will: Living will on file. Healthcare POA: No healthcare proxy on file. Declaration of Mental Health Treatment: No mental health treatment on file. Domestic Violence Screen: Does not feel threatened or abused physically, emotionally or sexually. Do you feel UNSAFE? The patient feels safe in the home. Depression/Suicide Screening: During the past 2 weeks, the patient has not felt down, depressed or hopeless. During the past 2 weeks, the patient has not felt little interest or pleasure in doing things. Insurance Insurance reviewed Visit number: 9 Insurance: carmelita Evaluating therapist: Desi Boo PT, DPT PT dx: [id number] Subjective Patient reports:. Pt late to session. Pt is having some pain in L neck and shoulder however she has not been waking up d/t N/T. Pt reports she is 50% back to baseline. SHe still has a hard time looking over shoulder to merge. Some numbness of LUE occasionally also. Home program performing as directed: Yes. Precautions: Fall Risk: none Objective Ortho Scap retraction: 4+/5 > 5/5 Neck isometrics Flex: 4/5 >5 /5 Ext: 4/5 >5 /5 R LF: 4/5 >5 /5 L LF: 4/5 >4+ /5 AROM Cervical spine Flex: 50 > 65 Ext: 25 > 40 R- LF: 25 > 25 rot: 70 L- LF: 35 > 35 rot: 63 > 63 Posture: forward head, slumped shoulders TTP: L UT, L cerv erector spinae, L subocc, L MT > B UT Tightness: mild-mod B UT, cerv erector spiane, subocc, MT, pec, LS. Outcome Measures Neck Pain Disability Index score: 9/50 > 8/50 Treatment Time in clinic started at 4:43 pm Time in clinic ended at 5:00 pm Total time in clinic is 17 minutes. Total timed code time is 15 minutes. Therapeutic exercise (48630):. supine SCM strength x8 ea supine chin tuck x10 NOT TODAY supine cervical rotation 10 sec hold x5 ea UBE: 3/3 L1 B rows with tube: magenta, 2x10 B ext with tube: magenta, 2x10 SA punch: 3#, B, 2x10 ABC: 3#, x1 cycle wall push up plus: x10 supine cerv ext isometrics: 2x10 supine chin tuck/head lift: 2x10 supine B ER: green band, 2x8 (I- seated) [X] supine horiz abd green band 2x8 (I- seated) [X] seated cervical flexion stretch 2x30 sec Doorway MT stretch 3x20 sec (X). Manual Therapy (61172): timed minutes 15, units 1 . Recheck, review HEP, review POC Cupping static and dynamic B UT (N) NOT TODAY Dry needle by GL to L UT, LS - Unbilled (X) STW to L UT, LS, med scap border, cervical erector spinae SOR Mechanical traction. Modalities:. Theratrac cervical traction [X]. (more content not included)... Normal [facility] Therapy Re-eval Noteon 02-23 Therapy Re-eval Note Therapy Diagnosis Assessed 1. Neck pain (723.1) (M54.2) 2. Migraine (346.90) (G43.909) Plan Goals: Goals set and discussed today. In 2 weeks, pt will be IND and compliant with HEP for participation throughout POC. , goal met Pain: In 4 weeks, pt will report 50% reduced s/s for ADLs., goal met Range Of Motion/Joint Mobility: In 4 weeks, pt will demo cervical AROM to 35 deg R LF, 70 deg L rot for driving., goal partially met Strength: In 4 weeks, pt will demo 5 /5 MMT of B cervical musculature for improved posture while at work., goal partially met , In 4 weeks, pt will score 5 /50 or less on the NDI to demo improved QOL., goal partially met Planned interventions include: cryotherapy, dry needling, education/instructio n, electrical stimulation, home program, hot pack, kinesiotaping, manual therapy, self care/home management, therapeutic activities, therapeutic exercises and iastm, cupping, BFR. Frequency and duration: 2 time(s) a week, for 4 weeks, for 8 visits. Potential to achieve rehab goals is good Plan to focus on manual therapy with dry needling. She responded well to cupping today so will also cont that. Cont with strengthening of cervical and periscap regions. Assessment Patient confirmed name and date of this session. Ms. Eddie Villanueva is progressing well through their POC addressing neck pain causing migraines. Pt has attended 9 sessions since 01/24/23. The pt demonstrates and verbalizes improvements in cervical ROM, periscap and cervical strength, N/T. She does still demo limitation in L rotation and LF ROM, as well as L LF strength. The pt will benefit from continued skilled PT services to address the above stated impairments and functional limitations to maximize participation and ease in household, social, and work related activities. Plan to focus on manual therapy with dry needling. She responded well to cupping today so will also cont that. Cont with strengthening of cervical and periscap regions. Adult Risk Screening There are no spiritual/cultural practices/values/nee ds that are important to know Initial Fall Risk Screening: KIA has not fallen in the last 6 months. Her fall did not result in injury. KIA does not have a fear of falling. She does not need assistance with sitting, standing or walking. Does not need assistance walking in her home. She does not need assistance in an unfamiliar setting. The patient is not using an assistive device. Living Will. Living Will: Living will on file. Healthcare POA: No healthcare proxy on file. Declaration of Mental Health Treatment: No mental health treatment on file. Domestic Violence Screen: Does not feel threatened or abused physically, emotionally or sexually. Do you feel UNSAFE? The patient feels safe in the home. Depression/Suicide Screening: During the past 2 weeks, the patient has not felt down, depressed or hopeless. During the past 2 weeks, the patient has not felt little interest or pleasure in doing things. Insurance Insurance reviewed Visit number: 9 Insurance: carmelita Evaluating therapist: Desi Boo PT, DPT PT dx: [id number] Subjective Patient reports:. Pt late to session. Pt is having some pain in L neck and shoulder however she has not been waking up d/t N/T. Pt reports she is 50% back to baseline. SHe still has a hard time looking over shoulder to merge. Some numbness of LUE occasionally also. Home program performing as directed: Yes. Precautions: Fall Risk: none Objective Ortho Scap retraction: 4+/5 > 5/5 Neck isometrics Flex: 4/5 >5 /5 Ext: 4/5 >5 /5 R LF: 4/5 >5 /5 L LF: 4/5 >4+ /5 AROM Cervical spine Flex: 50 > 65 Ext: 25 > 40 R- LF: 25 > 25 rot: 70 L- LF: 35 > 35 rot: 63 > 63 Posture: forward head, slumped shoulders TTP: L UT, L cerv erector spinae, L subocc, L MT > B UT Tightness: mild-mod B UT, cerv erector spiane, subocc, MT, pec, LS. Outcome Measures Neck Pain Disability Index score: 50 > 850 Treatment Time in clinic started at 4:43 pm Time in clinic ended at 5:00 pm Total time in clinic is 17 minutes. Total timed code time is 15 minutes. Therapeutic exercise (21618):. supine SCM strength x8 ea supine chin tuck x10 NOT TODAY supine cervical rotation 10 sec hold x5 ea UBE: 3/3 L1 B rows with tube: magenta, 2x10 B ext with tube: magenta, 2x10 SA punch: 3#, B, 2x10 ABC: 3#, x1 cycle wall push up plus: x10 supine cerv ext isometrics: 2x10 supine chin tuck/head lift: 2x10 supine B ER: green band, 2x8 (I- seated) [X] supine horiz abd green band 2x8 (I- seated) [X] seated cervical flexion stretch 2x30 sec Doorway MT stretch 3x20 sec (X). Manual Therapy (08290): timed minutes 15, units 1 . Recheck, review HEP, review POC Cupping static and dynamic B UT (N) NOT TODAY Dry needle by GL to L UT, LS - Unbilled (X) STW to L UT, LS, med scap border, cervical erector spinae SOR Mechanical traction. Modalities:. Theratrac cervical traction (more content not included)... [facility] PT Progress Noteon 3 PT Progress Note Therapy Diagnosis Assessed Neck pain (723.1) (M54.2) Decreased ROM of neck (723.8) (R29.898) Plan Goals: Goals set and discussed today. In 2 weeks, pt will be IND and compliant with HEP for participation throughout POC. Pain: In 4 weeks, pt will report 50% reduced s/s for ADLs. Range Of Motion/Joint Mobility: In 4 weeks, pt will demo cervical AROM to 35 deg R LF, 70 deg L rot for driving. Strength: In 4 weeks, pt will demo 5 /5 MMT of B cervical musculature for improved posture while at work. , In 4 weeks, pt will score 5 /50 or less on the NDI to demo improved QOL. Planned interventions include: cryotherapy, dry needling, education/instructio n, electrical stimulation, home program, hot pack, kinesiotaping, manual therapy, self care/home management, therapeutic activities, therapeutic exercises and iastm, cupping, BFR. Frequency and duration: 2 time(s) a week, for 4 weeks, for 8 visits. Potential to achieve rehab goals is good Plan to continue as PT poc to improve ADL and IADL tolerance. Patient meets with evaluating PT next treatment for recheck. Progress with POC, as tolerated. Assessment Better posture awareness when seated and when stg. Discussed work ergonomics with her computer and chair positioning to help manage symptoms. Deferred traction treatment with emphasis on ther-ex and manual treatment. Noted reduced tightness along cerv paraspinals and into left UT area. Response to treatment: decreased pain, improved flexibility, improved tissue mobility, improved posture and improved knowledge and understanding of condition. Adult Risk Screening There are no spiritual/cultural practices/values/nee ds that are important to know Initial Fall Risk Screening: KIA has not fallen in the last 6 months. Her fall did not result in injury. KIA does not have a fear of falling. She does not need assistance with sitting, standing or walking. Does not need assistance walking in her home. She does not need assistance in an unfamiliar setting. The patient is not using an assistive device. Living Will. Living Will: Living will on file. Healthcare POA: No healthcare proxy on file. Declaration of Mental Health Treatment: No mental health treatment on file. Domestic Violence Screen: Does not feel threatened or abused physically, emotionally or sexually. Do you feel UNSAFE? The patient feels safe in the home. Depression/Suicide Screening: During the past 2 weeks, the patient has not felt down, depressed or hopeless. During the past 2 weeks, the patient has not felt little interest or pleasure in doing things. Insurance Insurance reviewed Visit number: 8 Insurance: carmelita Evaluating therapist: Desi Boo PT, DPT PT dx: [id number] Subjective Patient reports:. Today is a good day - no WALLACE and not much numbness down my arm. The therapy seems to be working. Precautions: Fall Risk: none Treatment Time in clinic started at 0701 Time in clinic ended at 0743 Total time in clinic is 42 minutes. Total timed code time is 40 minutes. Therapeutic exercise (24581): timed minutes 25, units 1 . UBE: 3/3 L1 B rows with tube: magenta, 2x10 B ext with tube: magenta, 2x10 SA punch: 3#, B, 2x10 ABC: 3#, x1 cycle wall push up plus: x10 supine cerv ext isometrics: 2x10 supine chin tuck/head lift: 2x10 supine B ER: green band, 2x8 (I- seated) [X] supine horiz abd green band 2x8 (I- seated) [X] supine SCM strength x8 ea (X) supine cervical rotation 10 sec hold x5 ea seated LS stretch 3s30 sec L [X - HEP] seated UT stretch 3x30 sec L [X - HEP] seated cervical flexion stretch 2x30 sec Doorway MT stretch 3x20 sec (X). Manual Therapy (98450): timed minutes 15, units 1 . Dry needle by GL to L UT, LS - Unbilled (X) STW to L UT, LS, med scap border, cervical erector spinae SOR Mechanical traction. Modalities:. Theratrac cervical traction [X]. 'Scores and Scales' Signatures Electronically signed by : Gen Ramirez PTA; Feb 21 2023 7:49AM EST (Author) Electronically signed by : Desi Boo, PT; Feb 22 2023 11:11AM EST [facility] PT Progress Noteon 3 PT Progress Note Therapy Diagnosis Assessed Neck pain (723.1) (M54.2) Decreased ROM of neck (723.8) (R29.898) Plan Goals: Goals set and discussed today. In 2 weeks, pt will be IND and compliant with HEP for participation throughout POC. Pain: In 4 weeks, pt will report 50% reduced s/s for ADLs. Range Of Motion/Joint Mobility: In 4 weeks, pt will demo cervical AROM to 35 deg R LF, 70 deg L rot for driving. Strength: In 4 weeks, pt will demo 5 /5 MMT of B cervical musculature for improved posture while at work. , In 4 weeks, pt will score 5 /50 or less on the NDI to demo improved QOL. Planned interventions include: cryotherapy, dry needling, education/instructio n, electrical stimulation, home program, hot pack, kinesiotaping, manual therapy, self care/home management, therapeutic activities, therapeutic exercises and iastm, cupping, BFR. Frequency and duration: 2 time(s) a week, for 4 weeks, for 8 visits. Potential to achieve rehab goals is good Plan to continue as PT poc to improve ADL and IADL tolerance. Dry needling and/or manual next session still. Progress with POC, as tolerated. Assessment Able to resume ther-ex this date. Also added scapular strengthening/stabil ization ex's with good response and tolerance. Reduced pain and tightness following manual treatment and patient indicated radicular symptoms (numbness/tingling down LUE) abolished post-treatment. Response to treatment: decreased pain, improved joint mobility/ROM, improved tissue mobility, improved posture and improved knowledge and understanding of condition. Adult Risk Screening There are no spiritual/cultural practices/values/nee ds that are important to know Initial Fall Risk Screening: KIA has not fallen in the last 6 months. Her fall did not result in injury. KIA does not have a fear of falling. She does not need assistance with sitting, standing or walking. Does not need assistance walking in her home. She does not need assistance in an unfamiliar setting. The patient is not using an assistive device. Living Will. Living Will: Living will on file. Healthcare POA: No healthcare proxy on file. Declaration of Mental Health Treatment: No mental health treatment on file. Domestic Violence Screen: Does not feel threatened or abused physically, emotionally or sexually. Do you feel UNSAFE? The patient feels safe in the home. Depression/Suicide Screening: During the past 2 weeks, the patient has not felt down, depressed or hopeless. During the past 2 weeks, the patient has not felt little interest or pleasure in doing things. Insurance Insurance reviewed Visit number: 7 Insurance: [employer] Evaluating therapist: Desi Boo PT, DPT PT dx: R29.898 Subjective Patient reports:. Patient stated she's doing a lot better today as compared to the previous session on 02-14. Did have a migraine WALLACE yesterday but none this morning. Precautions: Fall Risk: none Treatment Time in clinic started at 0705 Time in clinic ended at 0746 Total time in clinic is 41 minutes. Total timed code time is 40 minutes. Therapeutic exercise (33816): timed minutes 25, units 1 . UBE: 3/3 L1 B rows with tube: magenta, 2x8 B ext with tube: magenta, 2x8 [P - resistance] SA punch: 4#, B, 2x10 [N] ABC: 3#, x1 cycle wall push up plus: x10 [N] supine cerv ext isometrics: 2x10 supine chin tuck/head lift: 2x10 supine B ER: green band, 2x8 (I- seated) [X] supine horiz abd green band 2x8 (I- seated) [X] supine SCM strength x8 ea (X) supine cervical rotation 10 sec hold x5 ea (N) seated LS stretch 3s30 sec L seated UT stretch 3x30 sec L seated cervical flexion stretch 2x30 sec (N) Doorway MT stretch 3x20 sec (X). Manual Therapy ([id number]): timed minutes 15, units 1 . Dry needle by GL to L UT, LS - Unbilled (X) STW to L UT, LS, med scap border, cervical erector spinae SOR Mechanical traction. Modalities: untimed minutes 12, units 1 . Theratrac cervical traction [N]. 'Scores and Scales' Signatures Electronically signed by : Gen Ramirez AIRCRAFT ENGINEER; Feb 16 2023 7:54AM EST (Author) Electronically signed by : Desi Boo, PT; Feb 16 2023 2:16PM EST Normal [facility] PT Progress Noteon 3 PT Progress Note Therapy Diagnosis Assessed Neck pain (723.1) (M54.2) Decreased ROM of neck (723.8) (R29.898) Plan Goals: Goals set and discussed today. In 2 weeks, pt will be IND and compliant with HEP for participation throughout POC. Pain: In 4 weeks, pt will report 50% reduced s/s for ADLs. Range Of Motion/Joint Mobility: In 4 weeks, pt will demo cervical AROM to 35 deg R LF, 70 deg L rot for driving. Strength: In 4 weeks, pt will demo 5 /5 MMT of B cervical musculature for improved posture while at work. , In 4 weeks, pt will score 5 /50 or less on the NDI to demo improved QOL. Planned interventions include: cryotherapy, dry needling, education/instructio n, electrical stimulation, home program, hot pack, kinesiotaping, manual therapy, self care/home management, therapeutic activities, therapeutic exercises and iastm, cupping, BFR. Frequency and duration: 2 time(s) a week, for 4 weeks, for 8 visits. Potential to achieve rehab goals is good Perform horiz abd AND B ER in sitting next session for improved strength. Add shoulder stabilization next session also- SA punches, ABCs, wall push up plus. Dry needling and/or manual next session still. Progress with POC, as tolerated. Assessment Theratrac traction unit after manual treatment with good results. Patient noted reduced pain in neck and less radicular symptoms post-treatment. Deferred some of the ex's at patient request since increase in pain -> will resume per tolerance. Patient felt DN treatment last session helped reduce pain and tightness. Response to treatment: decreased pain, improved joint mobility/ROM, improved tissue mobility and improved knowledge and understanding of condition. Adult Risk Screening There are no spiritual/cultural practices/values/nee ds that are important to know Initial Fall Risk Screening: KIA has not fallen in the last 6 months. Her fall did not result in injury. KIA does not have a fear of falling. She does not need assistance with sitting, standing or walking. Does not need assistance walking in her home. She does not need assistance in an unfamiliar setting. The patient is not using an assistive device. Living Will. Living Will: Living will on file. Healthcare POA: No healthcare proxy on file. Declaration of Mental Health Treatment: No mental health treatment on file. Domestic Violence Screen: Does not feel threatened or abused physically, emotionally or sexually. Do you feel UNSAFE? The patient feels safe in the home. Depression/Suicide Screening: During the past 2 weeks, the patient has not felt down, depressed or hopeless. During the past 2 weeks, the patient has not felt little interest or pleasure in doing things. Insurance Insurance reviewed Visit number: 6 Insurance: [employer] Evaluating therapist: Desi Boo PT, DPT PT dx: [id number] Subjective Patient reports:. Patient stated she woke up in more pain - left side of neck and tingling down left arm. Reports much better following manual treatment and traction. Precautions: Fall Risk: none Treatment Time in clinic started at 0701 Time in clinic ended at 0744 Total time in clinic is 43 minutes. Total timed code time is 40 minutes. Therapeutic exercise ([id number]): timed minutes 10, units 1 . UBE: 3/3 L1 [X] B rows with tube: magenta, 2x8 B ext with tube: teal, 2x8 (A): SA punch, ABC, wall push up plus supine cerv ext isometrics: 2x10 supine chin tuck/head lift: 2x10 supine B ER: green band, 2x8 (I- seated) [X] supine horiz abd green band 2x8 (I- seated) [X] supine SCM strength x8 ea (X) supine cervical rotation 10 sec hold x5 ea (N) seated LS stretch 3s30 sec L seated UT stretch 3x30 sec L seated cervical flexion stretch 2x30 sec (N) Doorway MT stretch 3x20 sec (X). Manual Therapy (03201): timed minutes 18, units 1 . Dry needle by GL to L UT, LS - Unbilled (X) STW to L UT, LS, med scap border, cervical erector spinae SOR Mechanical traction. Modalities: untimed minutes 12, units 1 . Theratrac cervical traction [N]. 'Scores and Scales' Signatures Electronically signed by : Gen Ramirez AIRCRAFT ENGINEER; Feb 14 2023 8:31AM EST (Author) Electronically signed by : Desi Boo PT; Feb 14 2023 11:27AM EST [facility] PT Progress Noteon 3 PT Progress Note Therapy Diagnosis Assessed Neck pain (723.1) (M54.2) Decreased ROM of neck (723.8) (R29.898) Plan Goals: Goals set and discussed today. In 2 weeks, pt will be IND and compliant with HEP for participation throughout POC. Pain: In 4 weeks, pt will report 50% reduced s/s for ADLs. Range Of Motion/Joint Mobility: In 4 weeks, pt will demo cervical AROM to 35 deg R LF, 70 deg L rot for driving. Strength: In 4 weeks, pt will demo 5 /5 MMT of B cervical musculature for improved posture while at work. , In 4 weeks, pt will score 5 /50 or less on the NDI to demo improved QOL. Planned interventions include: cryotherapy, dry needling, education/instructio n, electrical stimulation, home program, hot pack, kinesiotaping, manual therapy, self care/home management, therapeutic activities, therapeutic exercises and iastm, cupping, BFR. Frequency and duration: 2 time(s) a week, for 4 weeks, for 8 visits. Potential to achieve rehab goals is good Perform horiz abd AND B ER in sitting next session for improved strength. Add shoulder stabilization next session also- SA punches, ABCs, wall push up plus. Dry needling and/or manual next session still. MP. Assessment Patient confirmed name and date of this session. Continued with cervical and periscap strengthening today with no c/o pain. Able to add dry needling today with reactive symptoms noted at cervical base. After this performed STW and stretching. Pt reported numbness is gone at end of session. Adult Risk Screening There are no spiritual/cultural practices/values/nee ds that are important to know Initial Fall Risk Screening: KIA has not fallen in the last 6 months. Her fall did not result in injury. KIA does not have a fear of falling. She does not need assistance with sitting, standing or walking. Does not need assistance walking in her home. She does not need assistance in an unfamiliar setting. The patient is not using an assistive device. Living Will. Living Will: Living will on file. Healthcare POA: No healthcare proxy on file. Declaration of Mental Health Treatment: No mental health treatment on file. Domestic Violence Screen: Does not feel threatened or abused physically, emotionally or sexually. Do you feel UNSAFE? The patient feels safe in the home. Depression/Suicide Screening: During the past 2 weeks, the patient has not felt down, depressed or hopeless. During the past 2 weeks, the patient has not felt little interest or pleasure in doing things. Insurance Insurance reviewed Visit number: 5 Insurance: [employer] Evaluating therapist: Desi Boo PT, DPT PT dx: [id number] Subjective Patient reports:. Pt denies pain upon arrival however states the LUE from UT to hand is numb. Home program performing as directed: Yes. Precautions: Fall Risk: none Treatment Time in clinic started at 8:02 am Time in clinic ended at 8:47 am Total time in clinic is 45 minutes. Total timed code time is 38 minutes. Therapeutic exercise ([id number]): timed minutes 30, units 2 . UBE: 3/3 L1 B rows with tube: purple, 2x8 B ext with tube: purple, 2x8 (A): SA punch, ABC, wall push up plus supine cerv ext isometrics: 2x10 supine chin tuck/head lift: 2x10 supine B ER: green band, 2x8 (I- seated) supine horiz abd green band 2x8 (I- seated) supine SCM strength x8 ea (X) supine cervical rotation 10 sec hold x5 ea (N) seated LS stretch 3s30 sec L seated UT stretch 3x30 sec L seated cervical flexion stretch 2x30 sec (N) Doorway MT stretch 3x20 sec (X). Manual Therapy (00010): timed minutes 8, units 1 . Dry needle by GL to L UT, LS - Unbilled (N) STW to L UT, LS, med scap border, cervical erector spinae SOR Mechanical traction. 'Scores and Scales' Signatures Electronically signed by : Desi Boo, PT; Feb 09 2023 8:47AM EST (Author) Normal [facility] PT Progress Noteon 3 PT Progress Note Therapy Diagnosis Assessed Neck pain (723.1) (M54.2) Decreased ROM of neck (723.8) (R29.898) Plan Goals: Goals set and discussed today. In 2 weeks, pt will be IND and compliant with HEP for participation throughout POC. Pain: In 4 weeks, pt will report 50% reduced s/s for ADLs. Range Of Motion/Joint Mobility: In 4 weeks, pt will demo cervical AROM to 35 deg R LF, 70 deg L rot for driving. Strength: In 4 weeks, pt will demo 5 /5 MMT of B cervical musculature for improved posture while at work. , In 4 weeks, pt will score 5 /50 or less on the NDI to demo improved QOL. Planned interventions include: cryotherapy, dry needling, education/instructio n, electrical stimulation, home program, hot pack, kinesiotaping, manual therapy, self care/home management, therapeutic activities, therapeutic exercises and iastm, cupping, BFR. Frequency and duration: 2 time(s) a week, for 4 weeks, for 8 visits. Potential to achieve rehab goals is good Progress ther ex as pt tolerates and cont manual therapy to reduce myofascial restrictions for pain relief. Try dry needling if able to medial scap border next session. Assessment Patient noting reduced pain and tightness following treatment - good response to manual treatments. Updated HEP and provided handout and green band. She demonstrates goal directed progression. Response to treatment: decreased pain, improved flexibility, improved tissue mobility, improved posture and improved knowledge and understanding of condition. Adult Risk Screening There are no spiritual/cultural practices/values/nee ds that are important to know Initial Fall Risk Screening: KIA has not fallen in the last 6 months. Her fall did not result in injury. KIA does not have a fear of falling. She does not need assistance with sitting, standing or walking. Does not need assistance walking in her home. She does not need assistance in an unfamiliar setting. The patient is not using an assistive device. Living Will. Living Will: Living will on file. Healthcare POA: No healthcare proxy on file. Declaration of Mental Health Treatment: No mental health treatment on file. Domestic Violence Screen: Does not feel threatened or abused physically, emotionally or sexually. Do you feel UNSAFE? The patient feels safe in the home. Depression/Suicide Screening: During the past 2 weeks, the patient has not felt down, depressed or hopeless. During the past 2 weeks, the patient has not felt little interest or pleasure in doing things. Insurance Insurance reviewed Visit number: 4 Insurance: [employer] Evaluating therapist: Desi Boo PT, TROY PT dx: [id number] Subjective Patient reports:. Patient indicated P.T. is helping and she's feeling better overall. Precautions: Fall Risk: none Treatment Time in clinic started at 0701 Time in clinic ended at 0745 Total time in clinic is 44 minutes. Total timed code time is 41 minutes. Therapeutic exercise (10908): timed minutes 24, units 2 . UBE: 3/3 L1 B rows with tube: purple, 2x8 B ext with tube: purple, 2x8 supine cerv ext: 2x10 supine chin tuck/head lift: 2x10 supine B ER: green band, 2x10 supine horiz abd green band 2x10 supine SCM strength x8 ea seated LS stretch 3s30 sec L [X - no time] Doorway MT stretch 3x20 sec. Manual Therapy (26899): timed minutes 17, units 1 . (A) dry needling to medial scap border, UT in supine: STW - paraspinals, SCM, UT on L SOR gentle manual traction in R s/l: MT, med scap border. 'Scores and Scales' Signatures Electronically signed by : Gen Ramirez AIRCRAFT ENGINEER; Feb 07 2023 8:08AM EST (Author) Electronically signed by : Desi Boo PT; Feb 07 2023 11:06AM EST [facility] PT Progress Noteon 3 PT Progress Note Therapy Diagnosis Assessed Neck pain (723.1) (M54.2) Decreased ROM of neck (723.8) (R29.898) Plan Goals: Goals set and discussed today. In 2 weeks, pt will be IND and compliant with HEP for participation throughout POC. Pain: In 4 weeks, pt will report 50% reduced s/s for ADLs. Range Of Motion/Joint Mobility: In 4 weeks, pt will demo cervical AROM to 35 deg R LF, 70 deg L rot for driving. Strength: In 4 weeks, pt will demo 5 /5 MMT of B cervical musculature for improved posture while at work. , In 4 weeks, pt will score 5 /50 or less on the NDI to demo improved QOL. Planned interventions include: cryotherapy, dry needling, education/instructio n, electrical stimulation, home program, hot pack, kinesiotaping, manual therapy, self care/home management, therapeutic activities, therapeutic exercises and iastm, cupping, BFR. Frequency and duration: 2 time(s) a week, for 4 weeks, for 8 visits. Potential to achieve rehab goals is good Progress ther ex as pt tolerates and cont manual therapy to reduce myofascial restrictions for pain relief. Try dry needling if able to medial scap border next session. MP. Assessment Patient confirmed name and date of this session. She feels pulling in L side of neck with UBE which she did not feel last session. Added multiple activities for strengthening and stretching of cervicothoracic/ periscap regions. Myofascial restrictions felt in L MT and UT which reduced after manual therapy. Stretching following manual with improved s/s after session. Adult Risk Screening There are no spiritual/cultural practices/values/nee ds that are important to know Initial Fall Risk Screening: KIA has not fallen in the last 6 months. Her fall did not result in injury. KIA does not have a fear of falling. She does not need assistance with sitting, standing or walking. Does not need assistance walking in her home. She does not need assistance in an unfamiliar setting. The patient is not using an assistive device. Living Will. Living Will: Living will on file. Healthcare POA: No healthcare proxy on file. Declaration of Mental Health Treatment: No mental health treatment on file. Domestic Violence Screen: Does not feel threatened or abused physically, emotionally or sexually. Do you feel UNSAFE? The patient feels safe in the home. Depression/Suicide Screening: During the past 2 weeks, the patient has not felt down, depressed or hopeless. During the past 2 weeks, the patient has not felt little interest or pleasure in doing things. Insurance Insurance reviewed Visit number: 3 Insurance: [employer] Evaluating therapist: Desi Boo PT, DPT PT dx: [id number] Subjective Patient reports:. Rates pain in L shoulder blade area 10 upon arrival. Minimal soreness after last session. Precautions: Fall Risk: none Treatment Time in clinic started at 3:30 pm Time in clinic ended at 4:10 pm Total time in clinic is 40 minutes. Total timed code time is 39 minutes. Therapeutic exercise (40296): timed minutes 24, units 2 . UBE: 3/3 L1 (P) B rows with tube: purple, 2x8 (P) B ext with tube: purple, 2x8 (P) supine cerv ext: 2x10 (P) supine chin tuck/head lift: 2x10 (P) supine B ER: green band, 2x10 (P) supine horiz abd green band 2x10 (N) supine SCM strength x8 ea (N) seated LS stretch 3s30 sec L (N) Doorway MT stretch 3x20 sec (N). Manual Therapy (74947): timed minutes 15, units 1 . (A) dry needling to medial scap border, UT in supine: STW - paraspinals, SCM, UT on L SOR gentle manual traction (X) in R s/l: MT, med scap border. 'Scores and Scales' Signatures Electronically signed by : Desi Boo PT; Feb 02 2023 4:10PM EST (Author) [facility] PT Progress Noteon 3 PT Progress Note Therapy Diagnosis Assessed Neck pain (723.1) (M54.2) Decreased ROM of neck (723.8) (R29.898) Plan Goals: Goals set and discussed today. In 2 weeks, pt will be IND and compliant with HEP for participation throughout POC. Pain: In 4 weeks, pt will report 50% reduced s/s for ADLs. Range Of Motion/Joint Mobility: In 4 weeks, pt will demo cervical AROM to 35 deg R LF, 70 deg L rot for driving. Strength: In 4 weeks, pt will demo 5 /5 MMT of B cervical musculature for improved posture while at work. , In 4 weeks, pt will score 5 /50 or less on the NDI to demo improved QOL. Planned interventions include: cryotherapy, dry needling, education/instructio n, electrical stimulation, home program, hot pack, kinesiotaping, manual therapy, self care/home management, therapeutic activities, therapeutic exercises and iastm, cupping, BFR. Frequency and duration: 2 time(s) a week, for 4 weeks, for 8 visits. Potential to achieve rehab goals is good Plan to continue manual treatment along with ther-ex and patient education to improve tolerance with daily chores at home and at work. Progress with POC, as tolerated. Assessment Introduced ther-ex for periscapular strengthening followed by manual treatment. Good response and tolerance to session, noting significant reduction in tightness and reports of pain following treatment. HEP was reviewed = patient with good understanding thus far. Response to treatment: decreased pain, improved joint mobility/ROM, improved tissue mobility, improved posture and improved knowledge and understanding of condition. Adult Risk Screening There are no spiritual/cultural practices/values/nee ds that are important to know Initial Fall Risk Screening: KIA has not fallen in the last 6 months. Her fall did not result in injury. KIA does not have a fear of falling. She does not need assistance with sitting, standing or walking. Does not need assistance walking in her home. She does not need assistance in an unfamiliar setting. The patient is not using an assistive device. Living Will. Living Will: Living will on file. Healthcare POA: No healthcare proxy on file. Declaration of Mental Health Treatment: No mental health treatment on file. Domestic Violence Screen: Does not feel threatened or abused physically, emotionally or sexually. Do you feel UNSAFE? The patient feels safe in the home. Depression/Suicide Screening: During the past 2 weeks, the patient has not felt down, depressed or hopeless. During the past 2 weeks, the patient has not felt little interest or pleasure in doing things. Insurance Insurance reviewed Visit number: 2 Insurance: [employer] Evaluating therapist: Desi Boo PT, DPT PT dx: [id number] Subjective Patient reports:. A little tight and sore before the treatment today but I feel much better afterwards. Significant WALLACE yesterday but none this morning. Precautions: Fall Risk: none Treatment Time in clinic started at 0701 Time in clinic ended at 0745 Total time in clinic is 44 minutes. Total timed code time is 43 minutes. Therapeutic exercise (73277): timed minutes 23, units 2 . UBE: 2.5'/2.5', L1 B rows with tube: purple, 2x8 B ext with tube: purple, 2x8 supine cerv retraction: x10 supine chin tuck/head lift: x10 supine B ER: orange band, 2x10. Manual Therapy ([id number]): timed minutes 20, units 1 . in supine: STW - paraspinals, SCM, UT on L SOR gentle manual traction. 'Scores and Scales' Signatures Electronically signed by : Gen Ramirez PTA; Jan 31 2023 8:49AM EST (Author) Electronically signed by : Desi Boo PT; Jan 31 2023 4:03PM EST [facility] PT Initial Evaluationon 01-01 PT Initial Evaluation Therapy Diagnosis Assessed Neck pain (723.1) (M54.2) Decreased ROM of neck (723.8) (R29.898) Plan of Care Goals: Goals set and discussed today. In 2 weeks, pt will be IND and compliant with HEP for participation throughout POC. Pain: In 4 weeks, pt will report 50% reduced s/s for ADLs. Range Of Motion/Joint Mobility: In 4 weeks, pt will demo cervical AROM to 35 deg R LF, 70 deg L rot for driving. Strength: In 4 weeks, pt will demo 5 /5 MMT of B cervical musculature for improved posture while at work. , In 4 weeks, pt will score 5 /50 or less on the NDI to demo improved QOL. Planned interventions include: cryotherapy, dry needling, education/instructio n, electrical stimulation, home program, hot pack, kinesiotaping, manual therapy, self care/home management, therapeutic activities, therapeutic exercises and iastm, cupping, BFR. Frequency and duration: 2 time(s) a week, for 4 weeks, for 8 visits. Potential to achieve rehab goals is good Plan of care was developed with input and agreement by the patient. Assessment Ms. Villanueva arrives to outpatient PT with s/s consistent with c/o neck pain causing increased migraines. Pt presents with the following impairments: weakness cervical and periscap musculature, myofascial restrictions cervical region, impaired posture. These impairments contribute to difficulty in activity limitations and participation restrictions including driving, work duties, prolonged positioning. The pt will benefit from skilled PT services to address the above stated impairments and functional limitations to maximize participation and ease in household, social, and work related activities. The pt has a good prognosis when considering positive factors including motivation, activity level, PLOF with barriers such as HO migraines. The pt verbalized understanding and agreement to goals and POC. Thank you for this referral and please call [phone] with any questions or concerns. Clinical Presentation: Stable and/or uncomplicated characteristics. Level of Complexity: low Problem List: activity limitations, ADLs/IADLs/self care skills, decreased knowledge of HEP, flexibility, pain, participation restrictions, posture, range of motion/joint mobility and strength. Reason For Visit Initial Evaluation . Dx: m54.2. Referred by: bree espinoza Adult Risk Screening There are no spiritual/cultural practices/values/nee ds that are important to know Initial Fall Risk Screening: KIA has not fallen in the last 6 months. Her fall did not result in injury. KIA does not have a fear of falling. She does not need assistance with sitting, standing or walking. Does not need assistance walking in her home. She does not need assistance in an unfamiliar setting. The patient is not using an assistive device. Living Will. Living Will: Living will on file. Healthcare POA: No healthcare proxy on file. Declaration of Mental Health Treatment: No mental health treatment on file. Domestic Violence Screen: Does not feel threatened or abused physically, emotionally or sexually. Do you feel UNSAFE? The patient feels safe in the home. Depression/Suicide Screening: During the past 2 weeks, the patient has not felt down, depressed or hopeless. During the past 2 weeks, the patient has not felt little interest or pleasure in doing things. 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 Pt is a 57 y/o F arriving to outpatient PT c/o neck pain. She had migraines since she was a child which starts at L neck then go on top of head. In the past 6 months she feels pinching that she believes is causing numbness of L fingers. She can wake up in the morning with numbness. Numbness with prolonged positioning. Migraines have been getting worse recently. She has stiffness of L neck also. 1/10 pain at rest currently stating it is more stiff. Pt is R handed. She gets a migraine every 2-3 weeks recently. She used to only have 1 migraine about every 2 months. She used to have migraine onset during the day however now she seems to wake up with them. She has a hard time turning head L to get on highway. Pain Relieving Factors:. movement. Medical Screening: Reviewed medical history form with patient and medical screening assessed. WALLACE, migraine, thyroid disorder. Current Medical Management:. Patient confirmed name and date of this session. Precautions: Fall Risk: none Functional Assessment Prior level of function: Pt was previously IND in all ADLs with no restrictions. Patient stated goal(s) for treatment include: relieving pain , reducing symptoms of numbness and reducing/preventing future occurrences of migraines. Current Status: worsening. Patient Awareness: Patient is aware of her diagnosis and prognosis. Living Environment: reviewed and (more content not included)... Normal Touchworks COMPREHENSIVE PANELon 2022 Albumin [Mass/Vol] 4.0 g/dL Normal 3.4 - 5.0 [facility] Comment on above: Performed By: #### C MP #### [address] [address] ALP [Catalytic activity/Vol] 63 U/L Normal 33 - 110 [facility] Comment on above: Performed By: #### C MP #### [address] [address] ALT [Catalytic activity/Vol] 12 U/L Normal 7 - 45 [facility] Comment on above: Result Comment: Urszula ents treated with Sulfasalazine may generate falsely decreased results for ALT. Performed By: #### C MP #### [address] [address] Anion gap [Moles/Vol] 10 mmol/L Normal 10 - 20 [facility] Comment on above: Performed By: #### C MP #### [address] [address] AST [Catalytic activity/Vol] 15 U/L Normal 9 - 39 [facility] Comment on above: Performed By: #### C MP #### [address] [address] Bilirubin [Mass/Vol] 0.6 mg/dL Normal 0.0 - 1.2 [facility] Comment on above: Performed By: #### C MP #### [address] [address] Calcium [Mass/Vol] 9.1 mg/dL Normal 8.6 - 10.3 [facility] Comment on above: Performed By: #### C MP #### [address] [address] Chloride [Moles/Vol] 105 mmol/L Normal 98 - 107 [facility] Comment on above: Performed By: #### C MP #### [address] [address] Creatinine [Mass/Vol] 0.70 mg/dL Normal 0.50 - 1.05 [facility] Comment on above: Performed By: #### C MP #### [address] [address] eGFR FEMALE >90 Normal >90 [facility] Comment on above: Result Comment: CALC ULATIONS OF ESTIMATED GFR ARE PERFORMED USING THE 2020 CKD-EPI STUDY REFIT EQUATION WITHOUT THE RACE VARIABLE FOR THE IDMS-TRACEABLE CREATININE METHODS. https://jasn.asnjournals.org/content//ASN.11478765 88 Performed By: #### C MP #### [address] [address] Glucose [Mass/Vol] 91 mg/dL Normal 74 - 99 [facility] Comment on above: Performed By: #### C MP #### [address] [address] HCO3 (Bld) [Moles/Vol] 29 mmol/L Normal 21 - 32 [facility] Comment on above: Performed By: #### C MP #### [address] [address] Potassium [Moles/Vol] 4.2 mmol/L Normal 3.5 - 5.3 [facility] Comment on above: Performed By: #### C MP #### [address] [address] Protein [Mass/Vol] 6.9 g/dL Normal 6.4 - 8.2 [facility] Comment on above: Performed By: #### C MP #### [address] [address] Sodium [Moles/Vol] 140 mmol/L Normal 136 - 145 [facility] Comment on above: Performed By: #### C MP #### [address] [address] Urea nitrogen [Mass/Vol] 20 mg/dL Normal 6 - 23 [facility] Comment on above: Performed By: #### C MP #### [address] [address] LIPID PANEL (CORONARY RISK 2 )on 2022 Cholesterol [Mass/Vol] 180 mg/dL Normal 0 - 199 [facility] Comment on above: Result Comment: . AGE DESIRABLE BORDERLINE HIGH HIGH 0-19 Y 0 - 169 170 - 199 >/= 200 20-24 Y 0 - 189 190 - 224 >/= 225 >24 Y 0 - 199 200 - 239 >/= 240 All ranges are based on fasting samples. Specific therapeutic targets will vary based on patient-specific cardiac risk. . Pediatric guidelines reference:Pediatrics 2011, 128(S5). Adult guidelines reference: NCEP ATPIII Guidelines, ELIU 2001, 258:2486-97 . Venipuncture immediately after or during the administration of Metamizole may lead to falsely low results. Testing should be performed immediately prior to Metamizole dosing. Performed By: #### L IPID #### [address] [address] Cholesterol in HDL [Mass/Vol] 58.0 mg/dL Normal [facility] Comment on above: Result Comment: . AGE VERY LOW LOW NORMAL HIGH 0-19 Y < 35 < 40 40-45 ---- 20-24 Y ---- < 40 >45 ---- >24 Y ---- < 40 40-60 >60 . Performed By: #### L IPID #### [address] [address] Cholesterol in LDL [Mass/Vol] 96 mg/dL Normal 0 - 99 [facility] Comment on above: Result Comment: . NEAR BORD AGE DESIRABLE OPTIMAL HIGH HIGH VERY HIGH 0-19 Y 0 - 109 --- 110-129 >/= 130 ---- 20-24 Y 0 - 119 --- 120-159 >/= 160 ---- >24 Y 0 - 99 100-129 130-159 160-189 >/=190 . Performed By: #### L IPID #### [address] [address] Cholesterol in VLDL [Mass/Vol] 26 mg/dL Normal 0 - 40 [facility] Comment on above: Performed By: #### L IPID #### [address] [address] Cholesterol.total/C holesterol in HDL [Mass ratio] 3.1 {ratio} Normal [facility] Comment on above: Result Comment: REF VALUES DESIRABLE < 3.4 HIGH RISK > 5.0 Performed By: #### L IPID #### [address] [address] Triglyceride [Mass/Vol] 132 mg/dL Normal 0 - 149 [facility] Comment on above: Result Comment: . AGE DESIRABLE BORDERLINE HIGH HIGH VERY HIGH 0 D-90 D 19 - 174 ---- ---- ---- 91 D- 9 Y 0 - 74 75 - 99 >/= 100 ---- 10-19 Y 0 - 89 90 - 129 >/= 130 ---- 20-24 Y 0 - 114 115 - 149 >/= 150 ---- >24 Y 0 - 149 150 - 199 200- 499 >/= 500 . Venipuncture immediately after or during the administration of Metamizole may lead to falsely low results. Testing should be performed immediately prior to Metamizole dosing. Performed By: #### L IPID #### [facility] [address] [place] [address] Laboratory - Chemistry and C hemistry - challengeon 2022 Albumin BCP dye [Mass/Vol] 4.0 g/dL 3.4 - 5.0 [facility] Work Phone: ALP [Catalytic activity/Vol] 63 U/L 33 - 110 [facility] Work Phone: ALT With P-5'-P [Catalytic activity/Vol] 12 U/L 7 - 45 [facility] Work Phone: Comment on above: Patients treated wit h Sulfasalazine may generate falsely decreased results for ALT. Anion gap [Moles/Vol] 10 mmol/L 10 - 20 [facility] Work Phone: AST With P-5'-P [Catalytic activity/Vol] 15 U/L 9 - 39 [facility] Work Phone: Bilirubin [Mass/Vol] 0.6 mg/dL 0.0 - 1.2 [facility] Work Phone: Calcium [Mass/Vol] 9.1 mg/dL 8.6 - 10.3 [facility] Work Phone: Chloride [Moles/Vol] 105 mmol/L 98 - 107 [facility] Work Phone: CO2 [Moles/Vol] 29 mmol/L 21 - 32 [facility] Work Phone: Creatinine [Mass/Vol] 0.70 mg/dL See Below [facility] Work Phone: Comment on above: Reference Range: 0.5 0 - 1.05 Glucose [Mass/Vol] 91 mg/dL 74 - 99 [facility] Work Phone: Potassium [Moles/Vol] 4.2 mmol/L 3.5 - 5.3 [facility] Work Phone: Protein [Mass/Vol] 6.9 g/dL 6.4 - 8.2 [facility] Work Phone: Sodium [Moles/Vol] 140 mmol/L 136 - 145 [facility] Work Phone: TSH Qn 1.57 m[IU]/L See Below [facility] Work Phone: Comment on above: Reference Range: 0.4 4 - 3.98 TSH testing is performed using different testing methodology at [facility] than at [facility]. Direct result comparisons should only be made within the same method. Urea nitrogen [Mass/Vol] 20 mg/dL 6 - 23 [facility] Work Phone: Lipid Panelon 2022 Cholesterol [Mass/Vol] 180 mg/dL 0 - 199 [facility] Work Phone: Comment on above: . AGE DESIRABLE BORD CASEY HIGH HIGH 0-19 Y 0 - 169 170 - 199 >/= 200 20-24 Y 0 - 189 190 - 224 >/= 225 >24 Y 0 - 199 200 - 239 >/= 240 All ranges are based on fasting samples. Specific therapeutic targets will vary based on patient-specific cardiac risk.. Pediatric guidelines reference:Pediatrics 2011, 128(S5). Adult guidelines reference: NCEP ATPIII Guidelines, ELIU 2001, 258:2486-97. Venipuncture immediately after or during the administration of Metamizole may lead to falsely low results. Testing should be performed immediately prior to Metamizole dosing. Cholesterol in HDL [Mass/Vol] 58.0 mg/dL [facility] Work Phone: Comment on above: . AGE VERY LOW LOW N ORMAL HIGH 0-19 Y < 35 < 40 40-45 ---- 20- 24 Y ---- < 40 >45 ---- >24 Y ---- < 40 40-60 >60. Cholesterol in LDL [Mass/Vol] 96 mg/dL 0 - 99 [facility] Work Phone: Comment on above: . NEAR BORD AGE DARIUSZ RABLE OPTIMAL HIGH HIGH VERY HIGH 0-19 Y 0 - 109 --- 110-129 >/= 130 ---- 20-24 Y 0 - 119 --- 120-159 >/= 160 ---- >24 Y 0 - 99 100-129 130-159 160-189 >/=190. Cholesterol.total/C holesterol in HDL [Mass ratio] 3.1 {ratio} [facility] Work Phone: Comment on above: REF VALUESDESIRABLE < 3.4HIGH RISK > 5.0 Triglyceride [Mass/Vol] 132 mg/dL 0 - 149 [facility] Work Phone: Comment on above: . AGE DESIRABLE BORD CASEY HIGH HIGH VERY HIGH 0 D-90 D 19 - 174 ---- ---- ----91 D- 9 Y 0 - 74 75 - 99 >/= 100 ---- 10-19 Y 0 - 89 90 - 129 >/= 130 ---- 20-24 Y 0 - 114 115 - 149 >/= 150 ---- >24 Y 0 - 149 150 - 199 200- 499 >/= 500. Venipuncture immediately after or during the administration of Metamizole may lead to falsely low results. Testing should be performed immediately prior to Metamizole dosing. Lipid Panel 26 mg/dL 0 - 40 [facility] Work Phone: No Panel Informationon 08-02 >90 >90 [facility] Work Phone: Comment on above: CALCULATIONS OF VICTOR MANUEL MATED GFR ARE PERFORMED USING THE 2020 CKD-EPI STUDY REFIT EQUATION WITHOUT THE RACE VARIABLE FOR THE IDMS-TRACEABLE CREATININE METHODS.https://jasn.asnjournals.org/content//ASN. 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) Anxiety (300.00) (F41.9) BMI 28.0-28.9,adult (V85.24) (Z68.28) Orders Anxiety Renew: Sertraline HCl - 100 MG Oral Tablet; TAKE 1.5 TABLET Daily Rx By: Lenore Elias; Dispense: 90 Days ; #:135 Tablet; Refill: 1;For: Anxiety; AIDA = N; Verified Transmission to [facility] Hypothyroidism Renew: Levothyroxine Sodium 75 MCG Oral Tablet; TAKE ONE TABLET BY MOUTH DAILY Rx By: Lenore Elias; Dispense: 90 Days ; #:90 Tablet; Refill: 1;For: Hypothyroidism; AIDA = N; Verified Transmission to [facility]; Last Updated By: Tasneem Lance; 2022 8:27:32 AM TSH WITH REFLEX TO FREE T4 IF ABNORMAL; Status:Complete; Done: 02Aug2022 08:45AM Performed:[facility]; Due:31Oct2022;Ordere d; For:Hypothyroidism; Ordered By:Lenore Elias; Migraine Renew: Rizatriptan Benzoate 5 MG Oral Tablet; TAKE 1 TABLET AT ONSET OF HEADACHE. MAY REPEAT EVERY 2 HOURS NEEDED. MAXIMUM 3 TABLETS IN 24 HOURS Rx By: Lenore Elias; Dispense: 1 Days ; #:12 Tablet; Refill: 1;For: Migraine; AIDA = N; Verified Transmission to [facility]188 Mixed hyperlipidemia Renew: Atorvastatin Calcium 10 MG Oral Tablet; TAKE 1 TABLET BY MOUTH DAILY Rx By: Lenore Elias; Dispense: 90 Days ; #:90 Tablet; Refill: 1;For: Mixed hyperlipidemia; AIDA = N; Verified Transmission to [facility]; Last Updated By: Tasneem Lance; 2022 8:27:33 AM Comprehensive Metabolic Panel; Status:Complete; Done: 02Aug2022 08:45AM Performed:[facility]; Due:31Oct2022;Ordere d; For:Mixed hyperlipidemia; Ordered By:Lenore Elias; Lipid Panel; Status:Complete; Done: 02Aug2022 08:45AM Performed:[facility]; Due:31Oct2022;Ordere d; For:Mixed hyperlipidemia; Ordered By:Lenore Elias; Vitamin D deficiency Vitamin D 25-Hydroxy; Status:Complete; Done: 02Aug2022 08:45AM Performed:[facility]; Due:31Oct2022;Ordere d; For:Vitamin D deficiency; Ordered By:Lenore Elias; Patient Discussion/Summary Hyperlipidemia: lipid panel today. Continue Atorvastatin 10 mg daily Hypothyroid: continue Levothyroxine 75 mcg daily, will get TSH. Headaches: she will restart allergy medication, and Flonase, she will get eye exam. If this does not improve, will consider start of BB daily. Anxiety: Continue Sertraline 150 mg daily. Follow up in 1 year for wellness exam. Will change to yearly labs and yearly follow up. Chief Complaint Pt presents for routine check up; med review and refills; c/o not sleeping well; dull constant headache above left eyebrow. History of Present IllnessMarcy returns for chronic care and med refills. She has concerns today regarding increase in headaches. she feels this is due to her stopping her allergy and Flonase. She reports that her headaches are almost everyday and the pain is mostly behind her left eye and the left side of her head. She will take her Rizatriptan for her severe migraines which helps. Hyperlipidemia: She is taking her Statin. She is due for lipid panel. Denies any new muscle aches/pains. Hypothyroid: taking levothyroxine at current dose and doing well. Last TSH was normal range. [facility] DEXA: has not gotten this started Immunizations: She reports she received her Pneumonia and COVID booster at the pharmacy. Review of Systems Constitutional: feeling tired. Cardiovascular: no chest pain, no palpitations, no lower extremity edema, no shortness of breath and no chest pressure. Respiratory: no dyspnea with exertion. Gastrointestinal: no abdominal pain. Musculoskeletal: no muscle pain. Neurological: headache, but no dizziness. 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) Vitamin D deficiency (268.9) (E55.9) Past Medical History Problems History of Closed fracture of right wrist, initial encounter (814.00) (S62.101A) History of COVID-19 (079.89) (U07.1) History of constipation (V12.79) (Z87.19) Resolved Date: 08 Jan 2021 History of influenza vaccination (V49.89) (Z92.29) Resolved Date: 17 Jul 2020 History of leukocytosis (V12.3) (Z86.2) Resolved Date: 20 Jan 2022 History of Need for lpvtkvaevz-ficatiq-a ertussis (Tdap) vaccine (V06.1) (Z23) Resolved Date: 17 Jul 2020 No pertinent past medical history (V49.89) (Z78.9) History of Persistent adjustment disorder with anxiety (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 Normal [facility] TSH WITH REFLEX TO FREE T4 I F ABNORMALon 2022 TSH Qn 1.57 m[IU]/L Normal 0.44 - 3.98 [facility] Comment on above: Result Comment: TSH testing is performed using different testing methodology at [facility] than at [facility]. Direct result comparisons should only be made within the same method. Performed By: #### T HYDS #### [address] [address] Tobacco Screening.on 023 Adult depression screening assessment No [facility] [employer] Work Phone: Fall risk assessment b) One or more falls in the last year [facility] [employer] Work Phone: Tobacco use status [facility] b) No [facility] [employer] Work Phone: VITAMIN D, 25-HYDROXYon 07-05 VITAMIN D, 25-HYDROXY 31 ng/mL Normal [facility] Comment on above: Result Comment: . DEFICIENCY: < 20 NG/ML INSUFFICIENCY: 20-29 NG/ML SUFFICIENCY: 30-100 NG/ML THIS ASSAY ACCURATELY QUANTIFIES THE SUM OF VITAMIN D3, 25-HYDROXY AND VIT D2,25-HYDROXY. Performed By: #### V TDOH #### [place] [id number] Vitamin D 25-Hydroxyon 08-02 25-hydroxyvitamin D3 [Mass/Vol] 31 ng/mL [facility]: Comment on above: .DEFICIENCY: < 20 NG /MLINSUFFICIENCY: 20-29 NG/MLSUFFICIENCY: 30-100 NG/MLTHIS ASSAY ACCURATELY QUANTIFIES THE SUM OFVITAMIN D3, 25-HYDROXY AND VIT D2,25-HYDROXY. JARETT SCREENING W TOMOon 07-29 [facility] PELVIC US WHIon 06-06-2022 [facility] Established Visit (Orthopaed ic Surgery)on 04-28-2022 Established Visit (Orthopaedic Surgery) Diagnoses/Problems Assessed Closed fracture of right wrist, initial encounter (814.00) (S62.101A) Provider Impressions Assessment: Right distal radius fracture, possible DRUJ disruption Plan: The wrist is examining much better than last visit with less suspicion for a DRUJ disruption. She will continue to work on range of motion we did discuss occupational therapy and she would like to defer this at this time. She is not seeing any improvements over the next 3 to 4 weeks a would advise calling to start occupational therapy. I would still limit any heavy lifting at this time. Follow-up is as needed Chief Complaint F/U S/P R DISTAL RADIUS FX 01/14/22 IMPROVED History of Present Illness Patient is here today for follow-up of her right wrist fracture on 01/14/2022. There is some concern at last appointment for DRUJ disruption with clicking with pronation supination. She states that this has been decreasing the pain is getting better she has been working on range of motion of the wrist however it is been tough and she is seeing slow progress. She is not utilizing the brace doing most activities as tolerated. She has been avoiding heavy lifting at this time. 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) Vitamin D deficiency (268.9) (E55.9) Past Medical History Problems History of BMI 28.0-28.9,adult (V85.24) (Z68.28) Resolved Date: 20 Jan 2022 History of COVID-19 (079.89) (U07.1) History of constipation (V12.79) (Z87.19) Resolved Date: 08 Jan 2021 History of influenza vaccination (V49.89) (Z92.29) Resolved Date: 17 Jul 2020 History of leukocytosis (V12.3) (Z86.2) Resolved Date: 20 Jan 2022 History of Need for jfmdlnodcd-lgtsowq-i ertussis (Tdap) vaccine (V06.1) (Z23) Resolved Date: 17 Jul 2020 No pertinent past medical history (V49.89) (Z78.9) History of Traumatic loss of toenail of left great toe (893.0) (S91.202A) Resolved Date: 17 Jul 2020 History of Viral URI with cough (465.9) (J06.9) Resolved Date: 17 Jul 2020 Surgical History Problems History of Ankle surgery History of section History of Colonoscopy 12/18/2017 History of Dilation and curettage Family History Mother Family history of hyperlipidemia (V18.19) (Z83.438) Family history of hypertension (V17.49) (Z82.49) Family history of lung cancer (V16.1) (Z80.1) Family history of malignant neoplasm of breast (V16.3) (Z80.3) Father Family history of hyperlipidemia (V18.19) (Z83.438) Grandparent Family history of congenital heart disease (V19.5) (Z82.79) Family history of hypertension (V17.49) (Z82.49) Family history of malignant neoplasm of breast (V16.3) (Z80.3) Family history of type 2 diabetes mellitus (V18.0) (Z83.3) Social History Problems Caffeine use (V49.89) (Z78.9) Consumes alcohol (V49.89) (Z78.9) Never smoker No advance directives (V49.89) (Z78.9) No illicit drug use Allergies Medication No Known Drug Allergies Recorded By: Crystal Bob; 05/14/2019 8:10:15 AM Current Meds Medication NameInstruction Acyclovir 200 MG Oral CapsuleTake 1 capsule 5 times a day. Atorvastatin Calcium 10 MG Oral TabletTAKE ONE TABLET BY MOUTH DAILY Fexofenadine HCl - 180 MG Oral Tablet Levothyroxine Sodium 75 MCG Oral TabletTAKE 1 TABLET DAILY DIRECTED. Magnesium Citrate CAPS Magnesium Glycinate CAPS Melatonin TABS Multi-Vitamins TABS Nitrofurantoin Monohyd Macro 100 MG Oral CapsuleTAKE 1 CAPSULE (100 MG TOTAL) BY MOUTH EVERY 12 (TWELVE) HOURS FOR 5 DAYS. oxyCODONE-Acetaminop hen 5-325 MG Oral Tablet Phenazopyridine HCl - 100 MG Oral TabletTAKE 1 TABLET BY MOUTH THREE TIMES A DAY NEEDED FOR BLADDER SPASMS FOR UP TO 3 DAYS Gentriptan Benzoate 5 MG Oral TabletTAKE 1 TABLET AT ONSET OF HEADACHE. MAY REPEAT EVERY 2 HOURS NEEDED. MAXIMUM 3 TABLETS IN 24 HOURS. Sertraline HCl - 100 MG Oral TabletTAKE 1.5 TABLETS BY MOUTH EVERY DAY Vitamin B-12 1000 MCG Oral Tablet Vitamin D (Cholecalciferol) 25 MCG (1000 UT) Oral Capsule Vitals Vital Signs Recorded: 28Apr2022 03:33PM Tyhybwukgoh91.3 F Ouszyl487 lb BMI Kqnexrdqpg10.1 kg/m2 BSA Calculated1.73 Tobacco Useb) No Falls Screening (Age 18+)b) One or more falls in the last year Physical Exam Right upper extremity is neurovascular intact range of motion passively is to about 50 degrees flexion 70 degrees extension full pronation supination is a 70 degrees with pain at extremes, minimal clicking with pronation/supination , nontender the distal radius and ulna Signatures Electronically signed by : Bree Gold PA-C; Apr 28 2022 4:07P (more content not included)... Normal [facility] Tobacco Screening.on Fall risk assessment b) One or more falls in the last year [facility] 300 Work Phone: Tobacco use status [facility] b) No [facility] [address] Work Phone: Tobacco Screening.on Fall risk assessment b) One or more falls in the last year [facility] 300 Work Phone: Tobacco use status [facility] b) No [facility] 300 Work Phone: Radiologyon 03-02-2022 XR Wrist - bilateral 2 Views Normal [facility] 300 Work Phone: Tobacco Screening.on Fall risk assessment b) One or more falls in the last year [facility] [facility] 300 Work Phone: Tobacco use status [facility] b) No [facility] 300 Work Phone: Tobacco Screening.on Fall risk assessment b) One or more falls in the last year [facility] 300 Work Phone: Tobacco use status [facility] b) No [facility] 300 Work Phone: Tobacco Screening.on Fall risk assessment b) One or more falls in the last year -[facility] d Work Phone: Tobacco use status [facility] b) No -[facility] d Work Phone: CBC AND DIFFERENTIALon 01-19 Basophils (Bld) [#/Vol] 0.00 10*3/uL Normal 0.00 - 0.10 [facility] Comment on above: Performed By: #### C BCDF #### [address] [address] Basophils/100 WBC (Bld) 0.7 % Normal 0.0 - 2.0 [facility] Comment on above: Performed By: #### C BCDF #### [address] [address] Eosinophils (Bld) [#/Vol] 0.20 10*3/uL Normal 0.00 - 0.70 [facility] Comment on above: Performed By: #### C BCDF #### [address] [address] Eosinophils/100 WBC (Bld) 3.0 % Normal 0.0 - 6.0 [facility] Comment on above: Performed By: #### C BCDF #### [address] [address] Erythrocyte distribution width (RBC) [Ratio] 13.1 % Normal 11.5 - 14.5 [facility] Comment on above: Performed By: #### C BCDF #### [address] [address] Hematocrit (Bld) [Volume fraction] 39.9 % Normal 36.0 - 46.0 [facility] Comment on above: Performed By: #### C BCDF #### [address] [address] Hemoglobin (Bld) [Mass/Vol] 13.3 g/dL Normal 12.0 - 16.0 [facility] Comment on above: Performed By: #### C BCDF #### [address] [address] Lymphocytes (Bld) [#/Vol] 1.30 10*3/uL Normal 1.20 - 4.80 [facility] Comment on above: Performed By: #### C BCDF #### [address] [address] Lymphocytes/100 WBC (Bld) 22.9 % Normal 13.0 - 44.0 [facility] Comment on above: Performed By: #### C BCDF #### [address] [address] MCHC (RBC) [Mass/Vol] 33.3 g/dL Normal 32.0 - 36.0 [facility] Comment on above: Performed By: #### C BCDF #### [address] [address] MCV (RBC) [Entitic vol] 91 fL Normal 80 - 100 [facility] Comment on above: Performed By: #### C BCDF #### [address] [address] Monocytes (Bld) [#/Vol] 0.50 10*3/uL Normal 0.10 - 1.00 [facility] Comment on above: Performed By: #### C BCDF #### [address] [address] Monocytes/100 WBC (Bld) 7.6 % Normal 2.0 - 10.0 [facility] Comment on above: Performed By: #### C BCDF #### [address] [address] Neutrophils (Bld) [#/Vol] 3.90 10*3/uL Normal 1.20 - 7.70 [facility] Comment on above: Result Comment: Perc ent differential counts (%) should be interpreted in the context of the absolute cell counts (cells/L). Performed By: #### C BCDF #### [address] [address] Neutrophils/100 WBC (Bld) 65.8 % Normal 40.0 - 80.0 [facility] Comment on above: Performed By: #### C BCDF #### [address] [address] Platelets (Bld) [#/Vol] 242 10*3/uL Normal 150 - 450 [facility] Comment on above: Performed By: #### C BCDF #### [address] [address] RBC 4.40 x10E12/L Normal 4.00 - 5.20 [facility] Comment on above: Performed By: #### C BCDF #### [address] [address] WBC (Bld) [#/Vol] 5.9 10*3/uL Normal 4.4 - 11.3 [facility] Comment on above: Performed By: #### C BCDF #### [address] [address] COMPREHENSIVE PANELon 2021 Albumin [Mass/Vol] 4.2 g/dL Normal 3.4 - 5.0 [facility] Comment on above: Performed By: #### C MP #### [address] [address] ALP [Catalytic activity/Vol] 69 U/L Normal 33 - 110 [facility] Comment on above: Performed By: #### C MP #### [address] [address] ALT [Catalytic activity/Vol] 14 U/L Normal 7 - 45 [facility] Comment on above: Result Comment: Urszula ents treated with Sulfasalazine may generate falsely decreased results for ALT. Performed By: #### C MP #### [address] [address] Anion gap [Moles/Vol] 11 mmol/L Normal 10 - 20 [facility] Comment on above: Performed By: #### C MP #### [address] [address] AST [Catalytic activity/Vol] 15 U/L Normal 9 - 39 [facility] Comment on above: Performed By: #### C MP #### [address] [address] Bilirubin [Mass/Vol] 0.5 mg/dL Normal 0.0 - 1.2 [facility] Comment on above: Performed By: #### C MP #### [address] [address] Calcium [Mass/Vol] 9.4 mg/dL Normal 8.6 - 10.3 [facility] Comment on above: Performed By: #### C MP #### [address] [address] Chloride [Moles/Vol] 107 mmol/L Normal 98 - 107 [facility] Comment on above: Performed By: #### C MP #### [address] [address] Creatinine [Mass/Vol] 0.70 mg/dL Normal 0.50 - 1.05 [facility] Comment on above: Performed By: #### C MP #### [address] [address] eGFR FEMALE >90 Normal >90 [facility] Comment on above: Result Comment: CALC ULATIONS OF ESTIMATED GFR ARE PERFORMED USING THE 2020 CKD-EPI STUDY REFIT EQUATION WITHOUT THE RACE VARIABLE FOR THE IDMS-TRACEABLE CREATININE METHODS. https://jasn.asnjournals.org/content/early//ASN.28078869 88 Performed By: #### C MP #### [address] [address] Glucose [Mass/Vol] 102 mg/dL High 74 - 99 [facility] Comment on above: Performed By: #### C MP #### [address] [address] HCO3 (Bld) [Moles/Vol] 25 mmol/L Normal 21 - 32 [facility] Comment on above: Performed By: #### C MP #### [address] [address] Potassium [Moles/Vol] 4.1 mmol/L Normal 3.5 - 5.3 [facility] Comment on above: Performed By: #### C MP #### [address] [address] Protein [Mass/Vol] 6.9 g/dL Normal 6.4 - 8.2 [facility] Comment on above: Performed By: #### C MP #### [address] [address] Sodium [Moles/Vol] 139 mmol/L Normal 136 - 145 [facility] Comment on above: Performed By: #### C MP #### [address] [address] Urea nitrogen [Mass/Vol] 15 mg/dL Normal 6 - 23 [facility] Comment on above: Performed By: #### C MP #### [address] [address] Complete Blood Count + Diffe rentialon 01-19-2021 Basophils/100 WBC (Bld) 0.7 % 0.0 - 2.0 [facility] Work [facility]: Erythrocyte distribution width (RBC) [Ratio] 13.1 % See Below [facility] Work Phone: Comment on above: Reference Range: 11. 5 - 14.5 Hematocrit (Bld) [Volume fraction] 39.9 % See Below [facility] Work Phone: Comment on above: Reference Range: 36. 0 - 46.0 Hemoglobin (Bld) [Mass/Vol] 13.3 g/dL See Below [facility] Work Phone: Comment on above: Reference Range: 12. 0 - 16.0 Lymphocytes/100 WBC (Bld) 22.9 % See Below [facility] Work Phone: Comment on above: Reference Range: 13. 0 - 44.0 MCHC (RBC) [Mass/Vol] 33.3 g/dL See Below [facility] Work Phone: Comment on above: Reference Range: 32. 0 - 36.0 MCV (RBC) [Entitic vol] 91 fL 80 - 100 [facility] d Work Phone: Monocytes/100 WBC (Bld) 7.6 % 2.0 - 10.0 [facility] Work Phone: Neutrophils/100 WBC (Bld) 65.8 % See Below [facility] Work Phone: Comment on above: Reference Range: 40. 0 - 80.0 Platelets (Bld) [#/Vol] 242 10*3/uL 150 - 450 [facility] Work Phone: RBC (Bld) [#/Vol] 4.40 {x10E12/L} See Below [facility] Work Phone: Comment on above: Reference Range: 4.0 0 - 5.20 WBC (Bld) [#/Vol] 5.9 10*3/uL 4.4 - 11.3 [facility] Work Phone: Complete Blood Count + Differential 0.00 {x10E9/L} See Below [facility] Work Phone: Comment on above: Reference Range: 0.0 0 - 0.10 Complete Blood Count + Differential 0.20 {x10E9/L} See Below [facility] Work Phone: Comment on above: Reference Range: 0.0 0 - 0.70 Complete Blood Count + Differential 0.50 {x10E9/L} See Below [facility] Work Phone: Comment on above: Reference Range: 0.1 0 - 1.00 Complete Blood Count + Differential 1.30 {x10E9/L} See Below [facility] Work Phone: Comment on above: Reference Range: 1.2 0 - 4.80 Complete Blood Count + Differential 3.90 {x10E9/L} See Below [employer] [facility] Work Phone: Comment on above: Reference Range: 1.2 0 - 7.70 Percent differential counts (%) should be interpreted in the context of the absolute cell counts (cells/L). Complete Blood Count + Differential 3.0 % 0.0 - 6.0 [facility] Work Phone: LIPID PANEL (CORONARY RISK 2 )on 01-19-2022 Cholesterol [Mass/Vol] 159 mg/dL Normal 0 - 199 [facility] Comment on above: Result Comment: . AGE DESIRABLE BORDERLINE HIGH HIGH 0-19 Y 0 - 169 170 - 199 >/= 200 20-24 Y 0 - 189 190 - 224 >/= 225 >24 Y 0 - 199 200 - 239 >/= 240 All ranges are based on fasting samples. Specific therapeutic targets will vary based on patient-specific cardiac risk. . Pediatric guidelines reference:Pediatrics 2011, 128(S5). Adult guidelines reference: NCEP ATPIII Guidelines, ELIU 2001, 258:2486-97 . Venipuncture immediately after or during the administration of Metamizole may lead to falsely low results. Testing should be performed immediately prior to Metamizole dosing. Performed By: #### L IPID #### [address] [address] Cholesterol in HDL [Mass/Vol] 52.0 mg/dL Normal [facility] Comment on above: Result Comment: . AGE VERY LOW LOW NORMAL HIGH 0-19 Y < 35 < 40 40-45 ---- 20-24 Y ---- < 40 >45 ---- >24 Y ---- < 40 40-60 >60 . Performed By: #### L IPID #### [address] [address] Cholesterol in LDL [Mass/Vol] 81 mg/dL Normal 0 - 99 [facility] Comment on above: Result Comment: . NEAR BORD AGE DESIRABLE OPTIMAL HIGH HIGH VERY HIGH 0-19 Y 0 - 109 --- 110-129 >/= 130 ---- 20-24 Y 0 - 119 --- 120-159 >/= 160 ---- >24 Y 0 - 99 100-129 130-159 160-189 >/=190 . Performed By: #### L IPID #### [address] [address] Cholesterol in VLDL [Mass/Vol] 26 mg/dL Normal 0 - 40 [facility] Comment on above: Performed By: #### L IPID #### [address] [address] Cholesterol.total/C holesterol in HDL [Mass ratio] 3.1 {ratio} Normal [facility] Comment on above: Result Comment: REF VALUES DESIRABLE < 3.4 HIGH RISK > 5.0 Performed By: #### L IPID #### [address] [address] Triglyceride [Mass/Vol] 130 mg/dL Normal 0 - 149 [facility] Comment on above: Result Comment: . AGE DESIRABLE BORDERLINE HIGH HIGH VERY HIGH 0 D-90 D 19 - 174 ---- ---- ---- 91 D- 9 Y 0 - 74 75 - 99 >/= 100 ---- 10-19 Y 0 - 89 90 - 129 >/= 130 ---- 20-24 Y 0 - 114 115 - 149 >/= 150 ---- >24 Y 0 - 149 150 - 199 200- 499 >/= 500 . Venipuncture immediately after or during the administration of Metamizole may lead to falsely low results. Testing should be performed immediately prior to Metamizole dosing. Performed By: #### L IPID #### [address] [address] Laboratory - Chemistry and C hemistry - challengeon 01-19-2022 Albumin BCP dye [Mass/Vol] 4.2 g/dL 3.4 - 5.0 [facility] Work Phone: ALP [Catalytic activity/Vol] 69 U/L 33 - 110 [facility] Work Phone: ALT With P-5'-P [Catalytic activity/Vol] 14 U/L 7 - 45 [facility] Work Phone: Comment on above: Patients treated wit h Sulfasalazine may generate falsely decreased results for ALT. Anion gap [Moles/Vol] 11 mmol/L 10 - 20 [facility] Work Phone: AST With P-5'-P [Catalytic activity/Vol] 15 U/L 9 - 39 [facility] Work Phone: Bilirubin [Mass/Vol] 0.5 mg/dL 0.0 - 1.2 [facility] Work Phone: Calcium [Mass/Vol] 9.4 mg/dL 8.6 - 10.3 [facility] Work Phone: Chloride [Moles/Vol] 107 mmol/L 98 - 107 [facility] Work Phone: CO2 [Moles/Vol] 25 mmol/L 21 - 32 [facility] Work Phone: Creatinine [Mass/Vol] 0.70 mg/dL See Below [facility] Work Phone: Comment on above: Reference Range: 0.5 0 - 1.05 Glucose [Mass/Vol] 102 mg/dL above high threshold 74 - 99 [facility] Work Phone: Potassium [Moles/Vol] 4.1 mmol/L 3.5 - 5.3 [facility] Work Phone: Protein [Mass/Vol] 6.9 g/dL 6.4 - 8.2 [facility] Work Phone: Sodium [Moles/Vol] 139 mmol/L 136 - 145 [facility] Work Phone: TSH Qn 3.45 m[IU]/L See Below [facility] Work Phone: Comment on above: Reference Range: 0.4 4 - 3.98 TSH testing is performed using different testing methodology at [facility] than [facility]. Direct result comparisons should only be made within the same method. Urea nitrogen [Mass/Vol] 15 mg/dL 6 - 23 [facility] Work Phone: Lipid Panelon 01-19-2022 Cholesterol [Mass/Vol] 159 mg/dL 0 - 199 [facility] Work Phone: Comment on above: . AGE DESIRABLE BORD CASEY HIGH HIGH 0-19 Y 0 - 169 170 - 199 >/= 200 20-24 Y 0 - 189 190 - 224 >/= 225 >24 Y 0 - 199 200 - 239 >/= 240 All ranges are based on fasting samples. Specific therapeutic targets will vary based on patient-specific cardiac risk.. Pediatric guidelines reference:Pediatrics 2011, 128(S5). Adult guidelines reference: NCEP ATPIII Guidelines, ELIU 2001, 258:2486-97. Venipuncture immediately after or during the administration of Metamizole may lead to falsely low results. Testing should be performed immediately prior to Metamizole dosing. Cholesterol in HDL [Mass/Vol] 52.0 mg/dL [facility] Work Phone: Comment on above: . AGE VERY LOW LOW N ORMAL HIGH 0-19 Y < 35 < 40 40-45 ---- 20- 24 Y ---- < 40 >45 ---- >24 Y ---- < 40 40-60 >60. Cholesterol in LDL [Mass/Vol] 81 mg/dL 0 - 99 [facility] Work Phone: Comment on above: . NEAR BORD AGE DARIUSZ RABLE OPTIMAL HIGH HIGH VERY HIGH 0-19 Y 0 - 109 --- 110-129 >/= 130 ---- 20-24 Y 0 - 119 --- 120-159 >/= 160 ---- >24 Y 0 - 99 100-129 130-159 160-189 >/=190. Cholesterol.total/C holesterol in HDL [Mass ratio] 3.1 {ratio} [facility] Work Phone: Comment on above: REF VALUESDESIRABLE < 3.4HIGH RISK > 5.0 Triglyceride [Mass/Vol] 130 mg/dL 0 - 149 [facility] Work Phone: Comment on above: . AGE DESIRABLE BORD CASEY HIGH HIGH VERY HIGH 0 D-90 D 19 - 174 ---- ---- ----91 D- 9 Y 0 - 74 75 - 99 >/= 100 ---- 10-19 Y 0 - 89 90 - 129 >/= 130 ---- 20-24 Y 0 - 114 115 - 149 >/= 150 ---- >24 Y 0 - 149 150 - 199 200- 499 >/= 500. Venipuncture immediately after or during the administration of Metamizole may lead to falsely low results. Testing should be performed immediately prior to Metamizole dosing. Lipid Panel 26 mg/dL 0 - 40 [facility] Work Phone: No Panel Informationon 01-19 >90 >90 [facility] [employer] Work Phone: Comment on above: CALCULATIONS OF VICTOR MANUEL MATED GFR ARE PERFORMED USING THE 2020 CKD-EPI STUDY REFIT EQUATION WITHOUT THE RACE VARIABLE FOR THE IDMS-TRACEABLE CREATININE METHODS.https://jasn.asnjournals.org/content//ASN. 0632970079 Radiologyon 01-19-2022 XR Wrist - bilateral 3 Views Normal [facility] Work Phone: TSH WITH REFLEX TO FREE T4 I F ABNORMALon 01-19-2022 TSH Qn 3.45 m[IU]/L Normal 0.44 - 3.98 [facility] Comment on above: Result Comment: TSH testing is performed using different testing methodology at [facility] than at other [facility]. Direct result comparisons should only be made within the same method. Performed By: #### T HYDS #### [facility] [address] [place] [address] WRIST COMPLT MIN 3 VIEWSon 0 01-19-2022 WRIST COMPLT MIN 3 VIEWS Addendum Begins Patient Name: KIA CRESPO ADDENDUM: There is subtle dorsal and lateral buckling of the distal radius not involving the radiocarpal articular surface. Electronically signed by: MEI LIU MD Addendum Ends Patient Name: KIA CRESPO STUDY: WRIST COMPLT; MIN 3 VIEWS; Right; 01/19/2022 12:10 pm INDICATION: carpal region pain = right snuffbox pain and proximal thumb pain blunt injury during a mechanical fall . COMPARISON: None. ACCESSION NUMBER(S): [id number] ORDERING CLINICIAN: CECILE THOMSON FINDINGS: The bones are somewhat demineralized. There is mild degenerative change in the triscaphe joint. Other joint compartments maintained. There is no convincing evidence for acute fracture or dislocation. IMPRESSION: No acute findings Electronically signed by: MEI LIU MD Normal [facility] Tobacco Screening.on 022 Fall risk assessment a) No falls within the last year [facility] 205 DO Work Phone: Tobacco use status CP b) No [facility] 205 DO Work Phone: Tobacco Screening.on 021 Tobacco use status CP b) No [facility] Work Phone: Laboratory - Chemistry and C hemistry - challengeon 01-05-2021 Albumin BCP dye [Mass/Vol] 4.2 g/dL 3.4 - 5.0 [facility] d Work Phone: ALP [Catalytic activity/Vol] 65 U/L 33 - 110 [facility] Work Phone: ALT With P-5'-P [Catalytic activity/Vol] 17 U/L 7 - 45 [facility] Work Phone: Comment on above: Patients treated wit h Sulfasalazine may generate falsely decreased results for ALT. Anion gap [Moles/Vol] 11 mmol/L 10 - 20 [facility] Work Phone: AST With P-5'-P [Catalytic activity/Vol] 20 U/L 9 - 39 [facility] Work Phone: Bilirubin [Mass/Vol] 0.5 mg/dL 0.0 - 1.2 [facility] Work Phone: Calcium [Mass/Vol] 9.4 mg/dL 8.6 - 10.3 [facility] Work Phone: Chloride [Moles/Vol] 105 mmol/L 98 - 107 [facility] Work Phone: CO2 [Moles/Vol] 25 mmol/L 21 - 32 [facility] Work Phone: Creatinine [Mass/Vol] 0.69 mg/dL See Below [facility] Work Phone: Comment on above: Reference Range: 0.5 0 - 1.05 Glucose [Mass/Vol] 96 mg/dL 74 - 99 [facility] Work Phone: Potassium [Moles/Vol] 4.2 mmol/L 3.5 - 5.3 [facility] Work Phone: Protein [Mass/Vol] 7.0 g/dL 6.4 - 8.2 [facility] Work Phone: Sodium [Moles/Vol] 137 mmol/L 136 - 145 [facility] Work Phone: TSH Qn 3.91 m[IU]/L See Below [facility] Work Phone: Comment on above: Reference Range: 0.4 4 - 3.98 TSH testing is performed using different testing methodology at [facility] than at other [facility]. Direct result comparisons should only be made within the same method. Urea nitrogen [Mass/Vol] 19 mg/dL 6 - 23 [facility] Work Phone: Laboratory - Hematology and Cell countson 01-05-2021 Erythrocyte distribution width (RBC) [Ratio] 14.2 % See Below [facility] Work Phone: Comment on above: Reference Range: 11. 5 - 14.5 Hematocrit (Bld) [Volume fraction] 40.4 % See Below [facility] Work Phone: Comment on above: Reference Range: 36. 0 - 46.0 Hemoglobin (Bld) [Mass/Vol] 13.5 g/dL See Below [facility] Work Phone: Comment on above: Reference Range: 12. 0 - 16.0 MCHC (RBC) [Mass/Vol] 33.5 g/dL See Below [facility] Work Phone: Comment on above: Reference Range: 32. 0 - 36.0 MCV (RBC) [Entitic vol] 94 fL 80 - 100 [facility] Work Phone: Platelets (Bld) [#/Vol] 243 10*3/uL 150 - 450 [facility] Work Phone: RBC (Bld) [#/Vol] 4.28 {x10E12/L} See Below [facility] Work Phone: Comment on above: Reference Range: 4.0 0 - 5.20 WBC (Bld) [#/Vol] 4.3 10*3/uL below low threshold 4.4 - 11.3 [facility] Work Phone: Lipid Panelon 01-05-2021 Cholesterol [Mass/Vol] 186 mg/dL 0 - 199 [employer] Work Phone: Comment on above: . AGE DESIRABLE BORD CASEY HIGH HIGH 0-19 Y 0 - 169 170 - 199 >/= 200 20-24 Y 0 - 189 190 - 224 >/= 225 >24 Y 0 - 199 200 - 239 >/= 240 All ranges are based on fasting samples. Specific therapeutic targets will vary based on patient-specific cardiac risk.. Pediatric guidelines reference:Pediatrics 2011, 128(S5). Adult guidelines reference: NCEP ATPIII Guidelines, ELIU 2001, 258:8416-97. Venipuncture immediately after or during the administration of Metamizole may lead to falsely low results. Testing should be performed immediately prior to Metamizole dosing. Cholesterol in HDL [Mass/Vol] 64.0 mg/dL [facility] Work Phone: Comment on above: . AGE VERY LOW LOW N ORMAL HIGH 0-19 Y < 35 < 40 40-45 ---- 20- 24 Y ---- < 40 >45 ---- >24 Y ---- < 40 40-60 >60. Cholesterol in LDL [Mass/Vol] 93 mg/dL 0 - 99 [facility] [employer] Work Phone: Comment on above: . NEAR BORD AGE DARIUSZ RABLE OPTIMAL HIGH HIGH VERY HIGH 0-19 Y 0 - 109 --- 110-129 >/= 130 ---- 20-24 Y 0 - 119 --- 120-159 >/= 160 ---- >24 Y 0 - 99 100-129 130-159 160-189 >/=190. Cholesterol.total/C holesterol in HDL [Mass ratio] 2.9 {ratio} [facility] Work Phone: Comment on above: REF VALUESDESIRABLE < 3.4HIGH RISK > 5.0 Triglyceride [Mass/Vol] 144 mg/dL 0 - 149 [facility] [employer] [facility] Work Phone: Comment on above: . AGE DESIRABLE BORD CASEY HIGH HIGH VERY HIGH 0 D-90 D 19 - 174 ---- ---- ----91 D- 9 Y 0 - 74 75 - 99 >/= 100 ---- 10-19 Y 0 - 89 90 - 129 >/= 130 ---- 20-24 Y 0 - 114 115 - 149 >/= 150 ---- >24 Y 0 - 149 150 - 199 200- 499 >/= 500. Venipuncture immediately after or during the administration of Metamizole may lead to falsely low results. Testing should be performed immediately prior to Metamizole dosing. Lipid Panel 29 mg/dL 0 - 40 [facility] [employer] [facility] Work Phone: No Panel Informationon 01-05 >60 >60 [facility] [employer] [facility] Work Phone: Comment on above: CALCULATIONS OF VICTOR MANUEL MATED GFR ARE PERFORMED USING THE MDRD STUDY EQUATION FOR THE IDMS-TRACEABLE CREATININE METHODS. CLIN CHEM 2007;53:766-72 TSHon 01-17-2019 TSH Qn 5.23 mcIU/mL Normal 0.30-5.[address] [facility] Comment on above: Performed By: #### 2 [id number] #### [employer] [address] [place] [address] C Urineon 11-14-2018 C Urine Final Report: Light growth of Normal skin lucia isolated Normal [facility] Comment on above: Performed By: #### 2 [id number] #### [facility] [address] [place] [id number] CMPon 11-09-2018 Albumin [Mass/Vol] 4.0 g/dL Normal 3.4-5.0 [facility] Comment on above: Performed By: #### 2 [id number] #### [employer] [address] [place], [place] [id number] Albumin/Globulin [Mass ratio] 1.5 {ratio} Normal 1.1-1.[address] [facility] Comment on above: Performed By: #### 2 [id number] #### [employer] [address] [place] [address] Alk Phos 69 Int._Unit/L Normal 33-[address] [facility] Comment on above: Performed By: #### 2 [id number] #### [employer] [address] [place] [address] ALT [Catalytic activity/Vol] 14 Int._Unit/L Normal 7-[address] [facility] Comment on above: Performed By: #### 2 [id number] #### [facility] [employer] [address] [place] [address] Anion gap [Moles/Vol] 10 mmol/L Normal 10-[address] [facility] Comment on above: Performed By: #### 2 [id number] #### [facility] [employer] [address] [place], [place] [id number] AST [Catalytic activity/Vol] 17 Int._Unit/L Normal 9-[address] [facility] Comment on above: Performed By: #### 2 [id number] #### [facility] [employer] [address] [place] [address] Bili Total 0.66 mg/dL Normal 0.00-1.[address] [facility] Comment on above: Performed By: #### 2 [id number] #### [facility] [employer] [address] [place] [address] Calcium [Mass/Vol] 9.2 mg/dL Normal 8.6-10.3 [facility] Comment on above: Performed By: #### 2 [id number] #### [employer] [address] [place] [address] Chloride [Moles/Vol] 105 mmol/L Normal 98-[address] [facility] Comment on above: Performed By: #### 2 [id number] #### [employer] [address] [place] [address] CO2 [Moles/Vol] 28.0 mmol/L Normal 21.0-32.0 [facility] Comment on above: Performed By: #### 2 [id number] #### [employer] [address] [place] [address] Creatinine [Mass/Vol] 0.8 mg/dL Normal 0.5-1.[address] [facility] Comment on above: Performed By: #### 2 [id number] #### [employer] [address] [place] [address] 29663 Globulin (S) [Mass/Vol] 3.0 g/dL Normal 2.0-4.[address] [facility] Comment on above: Performed By: #### 2 [id number] #### [employer] [address] [place] [address] 10625 Glucose [Mass/Vol] 102 mg/dL High 70-99 [facility] Comment on above: Performed By: #### 2 [id number] #### [employer] [address] [place] [address] 83196 Potassium [Moles/Vol] 4.4 mmol/L Normal 3.5-5.[address] [facility] Comment on above: Performed By: #### 2 [id number] #### [employer] [address] [place] [address] 58479 Protein [Mass/Vol] 6.6 g/dL Normal 6.4-8.2 [facility] Comment on above: Performed By: #### 2 [id number] #### [employer] [address] [place] [address] 25341 Sodium [Moles/Vol] 138 mmol/L Normal 136-145 [facility] Comment on above: Performed By: #### 2 [id number] #### [employer] [address] [place] [address] 70160 Urea nitrogen [Mass/Vol] 23 mg/dL Normal 6-[address] [facility] Comment on above: Performed By: #### 2 [id number] #### [employer] [address] [place] [address] 79135 Urea nitrogen/Creatinine [Mass ratio] 28.8 ratio Normal 5.4-30.[address] [facility] Comment on above: Performed By: #### 2 [id number] #### [employer] [address] [place] [address] 95480 Lipid Profileon 11-09-2018 Cholesterol [Mass/Vol] 159 mg/dL Normal 0-[address] [facility] Comment on above: Result Comment: TOTA L CHOLEESTEROL: <200 NORMAL 200 - 239 BORDERLINE HIGH >240 HIGH Performed By: #### 3 [id number] #### [employer] [facility] [place] [address] Cholesterol in HDL [Mass/Vol] 54 mg/dL Normal 40-[address] [facility] Comment on above: Performed By: #### 3 [id number] #### [employer] [facility] [place] [address] Cholesterol in LDL [Mass/Vol] 80 mg/dL Normal 0-[address] [facility] Comment on above: Result Comment: <100 OPTIMAL 100-129 NEAR / ABOVE OPTIMAL 130-159 BORDERLINE HIGH 160-189 HIGH >190 VERY HIGH CALC LDL NOT VALID WHEN TRIGLYCERIDE IS >400 MG/DL Performed By: #### 3 [id number] #### [employer] [address] [place] [address] 38768 Cholesterol in VLDL [Mass/Vol] 25 mg/dL Normal 0-[address] [facility] Comment on above: Performed By: #### 3 [id number] #### [employer] [address] [place] [address] 57963 Triglyceride [Mass/Vol] 124 mg/dL Normal 0-[address] [facility] Comment on above: Result Comment: AGE DESIRABLE BORDERLINE HIGH 91 D - 9 Y 0 - 74 75 - 99 > 100 10 - 19 Y 0 - 89 90 - 129 > 130 20 -24 Y 0 - 114 115 - 149 > 150 > 25 0 - 149 150 - 199 200 - 499 Performed By: #### 3 [id number] #### [employer] [address] [place] [address] 67141 TSHon 11-09-2018 TSH Qn 4.37 mcIU/mL Normal 0.30-5.[address] [facility] Comment on above: Performed By: #### 2 [id number] #### [employer] [address] [place] [address] 63822 Vitamin D 25 Hydroxyon 11-09 Vitamin D 25 Hydroxy 35.0 ng/mL Normal 30.0-100.[address] [facility] Comment on above: Performed By: #### 5 [id number] #### [employer] [address] [place] [address] 66146 eGFRon 11-09-2018 GFR/1.73 sq M predicted among non-blacks MDRD (S/P/Bld) [Vol rate/Area] mL/min/{1.73_m2} Normal [facility] Comment on above: Order Comment: Order added by Discern Expert. Performed By: #### 1 [id number] #### [employer] [facility] [place] [address] Vital Signs Date Time Vital Sign Value Performing Clinician Facility 04-24-2025 08:04-0400 Body height 160 cm Bree Espinoza MD Work Phone: 1(773)578-921658 [place] [address] 04-24-2025 08:04-0400 Body mass index (BMI) [Ratio] 29.41 kg/m2 Bree Espinoza MD Work Phone: 4(778)588-253750 [place] [address] 04-24-2025 08:04-0400 Body weight 75.3 kg Bree Espinoza MD Work Phone: 6(155)942-622150 [place] [address] 04-24-2025 08:04-0400 Diastolic blood pressure 80 mm[Hg] Bree Espinoza MD Work Phone: 5(073)976-094658 [place] [address] 04-24-2025 08:04-0400 Heart rate 88 /min Bree Espinoza MD Work Phone: 0(962)976-380150 [place] [address] 04-24-2025 08:04-0400 Systolic blood pressure 124 mm[Hg] Bree Espinoza MD Work Phone: 9(573)379-637850 [place] [address] 04-14-2025 11:42-0400 Body height 160 cm Bree Espinoza MD Work Phone: 2(297)330-141450 [place] [address] 04-14-2025 11:42-0400 Body mass index (BMI) [Ratio] 29.05 kg/m2 Bree Espinoza MD Work Phone: 1(817)037-160250 [place] [address] 04-14-2025 11:42-0400 Body weight 74.39 kg Bree Espinoza MD Work Phone: 3(410)342-284150 [place] [address] 04-14-2025 11:42-0400 Diastolic blood pressure 78 mm[Hg] Bree Espinoza MD Work Phone: 4(477)561-507150 [place] [address] 04-14-2025 11:42-0400 Heart rate 88 /min Bree Espinoza MD Work Phone: [facility] 04-14-2025 11:42-0400 Systolic blood pressure 118 mm[Hg] Bree Espinoza MD Work Phone: [facility] 10-24-2024 08:23-0400 Body height 160 cm Bree Espinoza MD Work Phone: [facility] 10-24-2024 08:23-0400 Body mass index (BMI) [Ratio] 28.52 kg/m2 Bree Espinoza MD Work Phone: [facility] 10-24-2024 08:23-0400 Body weight 73.03 kg Bree Espinoza MD Work Phone: [facility] 10-24-2024 08:23-0400 Diastolic blood pressure 78 mm[Hg] Bree Espinoza MD Work Phone: [facility] 10-24-2024 08:23-0400 Heart rate 88 /min Bree Espinoza MD Work Phone: [facility] 10-24-2024 08:23-0400 Systolic blood pressure 124 mm[Hg] Bree Espinoza MD Work Phone: [facility] 04-25-2024 08:04-0400 Body height 160 cm Bree Espinoza MD Work Phone: [facility] 04-25-2024 08:04-0400 Body mass index (BMI) [Ratio] 27.63 kg/m2 Bree Espinoza MD Work Phone: [facility] 04-25-2024 08:04-0400 Body weight 70.76 kg Bree Espinoza MD Work Phone: [facility] 04-25-2024 08:04-0400 Diastolic blood pressure 82 mm[Hg] Bree Espinoza MD Work Phone: [facility] 04-25-2024 08:04-0400 Heart rate 72 /min Bree Espinoza MD Work Phone: [facility] 04-25-2024 08:04-0400 Systolic blood pressure 138 mm[Hg] Bree Espinoza MD Work Phone: [facility] 03-12-2024 08:16-0400 Body height 160 cm Bree Espinoza MD Work Phone: [facility] 03-12-2024 08:16-0400 Body mass index (BMI) [Ratio] 27.1 kg/m2 Bree Espinoza MD Work Phone: [facility] 03-12-2024 08:16-0400 Body weight 69.4 kg Bree Espinoza MD Work Phone: 0(971)148-342358 [place] [address] 03-12-2024 08:16-0400 Diastolic blood pressure 98 mm[Hg] Bree Espinoza MD Work Phone: [facility] 03-12-2024 08:16-0400 Heart rate 80 /min Bree Espinoza MD Work Phone: [facility] 03-12-2024 08:16-0400 Systolic blood pressure 150 mm[Hg] Bree Espinoza MD Work Phone: [facility] 09-05-2023 08:02-0500 Body height 160 cm Bree Espinoza MD Work Phone: [facility] 09-05-2023 08:02-0500 Body mass index (BMI) [Ratio] 28.15 kg/m2 Bree sEpinoza MD Work Phone: [facility] 09-05-2023 08:02-0500 Body weight 72.08 kg Bree Espinoza MD Work Phone: [facility] 09-05-2023 08:02-0500 Diastolic blood pressure 88 mm[Hg] Bree Espinoza MD Work Phone: [facility] 09-05-2023 08:02-0500 Heart rate 83 /min Bree Espinoza MD Work Phone: [facility] 09-05-2023 08:02-0500 SaO2% (BldA) [Mass fraction] 99 % Bree Espinoza MD Work Phone: [facility] 09-05-2023 08:02-0500 Systolic blood pressure 138 mm[Hg] Bree Espinoza MD Work Phone: [facility] 03-07-2023 08:25-0400 Body height 160 cm Bree Espinoza MD Work Phone: [facility] 03-07-2023 08:25-0400 Body mass index (BMI) [Ratio] 27.86 kg/m2 Bree Espinoza MD Work Phone: [facility] 03-07-2023 08:25-0400 Body weight 71.35 kg Bree Espinoza MD Work Phone: [facility] 03-07-2023 08:25-0400 Diastolic blood pressure 80 mm[Hg] Bree Espinoza MD Work Phone: [facility] 03-07-2023 08:25-0400 Heart rate 79 /min Bree Espinoza MD Work Phone: [facility] 03-07-2023 08:25-0400 SaO2% (BldA) [Mass fraction] 98 % Bree Espinoza MD Work Phone: [facility] 03-07-2023 08:25-0400 Systolic blood pressure 128 mm[Hg] Bree Espinoza MD Work Phone: [facility] 02-01-2023 08:46-0400 Diastolic blood pressure 80 mm[Hg] Bree Espinoza MD Work Phone: [facility] 02-01-2023 08:46-0400 Systolic blood pressure 138 mm[Hg] Bree Espinoza MD Work Phone: [facility] 02-01-2023 08:20-0400 Body height 160 cm Bree Espinoza MD Work Phone: [facility] 02-01-2023 08:20-0400 Body mass index (BMI) [Ratio] 27.99 kg/m2 Bree Espinoza MD Work Phone: [facility] 02-01-2023 08:20-0400 Body weight 71.67 kg Bree Espinoza MD Work Phone: [facility] 02-01-2023 08:20-0400 Heart rate 84 /min Bree Espinoza MD Work Phone: [facility] 12-30-2022 10:32-0400 Body height 160 cm Bree Espinoza MD Work Phone: [facility] 12-30-2022 10:32-0400 Body mass index (BMI) [Ratio] 28.22 kg/m2 Bree Espinoza MD Work Phone: [facility] 12-30-2022 10:32-0400 Body weight 72.26 kg Bree Espinoza MD Work Phone: [facility] 12-30-2022 10:32-0400 Diastolic blood pressure 80 mm[Hg] Bree Espinoza MD Work Phone: [facility] 12-30-2022 10:32-0400 Heart rate 72 /min Bree Espinoza MD Work Phone: [facility] 12-30-2022 10:32-0400 Systolic blood pressure 138 mm[Hg] Bree Espinoza MD Work Phone: [facility] 2022 08:06-0500 Body height 160.02 cm Lenore Elias Work Phone: [facility] Work Phone: 2022 08:06-0500 Body mass index (BMI) [Ratio] 28.17 kg/m2 Lenore Elias Work Phone: [facility] Work Phone: 2022 08:06-0500 Body surface area Derived from formula 1.75 m2 Lenore Elias Work Phone: [facility] Work Phone: 2022 08:06-0500 Body weight 72.12 kg Lenore Elias Work Phone: [facility] Work Phone: 2022 08:06-0500 Diastolic blood pressure 80 mm[Hg] Lenore Elias Work Phone: [facility] Work Phone: 2022 08:06-0500 Heart rate 87 /min Lenore Elias Work Phone: [facility] Work Phone: 2022 08:06-0500 SaO2% (BldA) [Mass fraction] 97 % Lenore Elias Work Phone: [facility] Work Phone: 2022 08:06-0500 Systolic blood pressure 110 mm[Hg] Lenore Elias Work Phone: [facility] Work Phone: 05-30-2022 11:24-0500 Body height 161.3 cm Hanny Kaye MD Work Phone: [facility] 05-30-2022 11:24-0500 Body weight 69.85 kg Hanny Kaye MD Work Phone: [facility] 05-30-2022 11:24-0500 Diastolic blood pressure 78 mm[Hg] Hanny Kaye MD Work Phone: [facility] 05-30-2022 11:24-0500 Systolic blood pressure 120 mm[Hg] Hanny Kaye MD Work Phone: [facility] 04-28-2022 15:33-0400 Body mass index (BMI) [Ratio] 27.1 kg/m2 Sheron Cota Work Phone: [facility] 300 Work Phone: 04-28-2022 15:33-0400 Body surface area Derived from formula 1.73 m2 Sheron Estradapster Work Phone: [facility] 300 Work Phone: 04-28-2022 15:33-0400 Body temperature 97.3 [degF] Sheron Estradapster Work Phone: [facility] 300 Work Phone: 04-28-2022 15:33-0400 Body weight 69.4 kg Sheron Estradapster Work Phone: [facility] 300 Work Phone: 03-31-2022 15:34-0400 Body mass index (BMI) [Ratio] 26.75 kg/m2 Sheron Estradapster Work Phone: [facility] 300 Work Phone: 03-31-2022 15:34-0400 Body surface area Derived from formula 1.72 m2 Sheron Kerry Maspeth Work Phone: [facility] 300 Work Phone: 03-31-2022 15:34-0400 Body temperature 96.8 [degF] Sheron Estradapster Work Phone: [facility] 300 Work Phone: 03-31-2022 15:34-0400 Body weight 68.49 kg Sheron Kerry Maspeth Work Phone: [facility] 300 Work Phone: 03-02-2022 11:10-0400 Body height 160.02 cm Sheron Cota Work Phone: [facility] 300 Work Phone: 03-02-2022 11:10-0400 Body mass index (BMI) [Ratio] 26.39 kg/m2 Sheron Cota Work Phone: [facility] 300 Work Phone: 03-02-2022 11:10-0400 Body surface area Derived from formula 1.71 m2 Sheron Cota Work Phone: [facility] 300 Work Phone: 03-02-2022 11:10-0400 Body temperature 97.6 [degF] Sheron Cota Work Phone: [facility] 300 Work Phone: 03-02-2022 11:10-0400 Body weight 67.59 kg Sheron Cota Work Phone: [facility] 300 Work Phone: 01-26-2022 11:44-0400 Body height 160.02 cm Sheron Cota Work Phone: [facility] 300 Work Phone: 01-26-2022 11:44-0400 Body mass index (BMI) [Ratio] 26.39 kg/m2 Sheron Cota Work Phone: [facility] 300 Work Phone: 01-26-2022 11:44-0400 Body surface area Derived from formula 1.71 m2 Sheron Cota Work Phone: [facility] 300 Work Phone: 01-26-2022 11:44-0400 Body temperature 96.9 [degF] Sheron Cota Work Phone: [facility] 300 Work Phone: 01-26-2022 11:44-0400 Body weight 67.59 kg Sheron Cota Work Phone: [facility] [place] 300 Work Phone: 01-20-2022 08:16-0400 Body height 160.02 cm Sheron Cota Work Phone: [facility] Work Phone: 01-20-2022 08:16-0400 Body mass index (BMI) [Ratio] 26.49 kg/m2 Sheron Cota Work Phone: [facility] Work Phone: 01-20-2022 08:16-0400 Body surface area Derived from formula 1.71 m2 Sheron Cota Work Phone: [facility] Work Phone: 01-20-2022 08:16-0400 Body weight 67.84 kg Sheron Cota Work Phone: [facility] Work Phone: 01-20-2022 08:16-0400 Diastolic blood pressure 80 mm[Hg] Sheron Cota Work Phone: [facility] Work Phone: 01-20-2022 08:16-0400 Heart rate 76 /min Sheron Cota Work Phone: [facility] Work Phone: 01-20-2022 08:16-0400 Systolic blood pressure 118 mm[Hg] Sheron Cota Work Phone: [facility] Work Phone: 07-22-2021 08:10-0500 Body height 160.02 cm Sheron Cota Work Phone: [facility] 205 DO Work Phone: 07-22-2021 08:10-0500 Body mass index (BMI) [Ratio] 28.17 kg/m2 Sheron Cota Work Phone: [facility] 205 DO Work Phone: 07-22-2021 08:10-0500 Body surface area Derived from formula 1.75 m2 Sheron Valladarester Work Phone: [facility] 205 DO Work Phone: 07-22-2021 08:10-0500 Body temperature 97.3 [degF] Sheron Valladarester Work Phone: [facility] 205 DO Work Phone: 07-22-2021 08:10-0500 Body weight 72.12 kg Sheron Valladarester Work Phone: [facility] 205 DO Work Phone: 07-22-2021 08:10-0500 Diastolic blood pressure 80 mm[Hg] Sheron Valladarester Work Phone: [facility] 205 DO Work Phone: 07-22-2021 08:10-0500 Heart rate 68 /min Sheron Valladarester Work Phone: [facility] 205 DO Work Phone: 07-22-2021 08:10-0500 Systolic blood pressure 118 mm[Hg] Sheron Estradapster Work Phone: [facility] 205 DO Work Phone: 01-07-2021 08:09-0400 Body height 160.02 cm Sheron Cota Work Phone: [facility] Work Phone: 01-07-2021 08:09-0400 Body mass index (BMI) [Ratio] 27.65 kg/m2 Sheron Cota Work Phone: [facility] Work Phone: 01-07-2021 08:09-0400 Body surface area Derived from formula 1.74 m2 Sheron eKrry Beata Work Phone: [facility] Work Phone: 01-07-2021 08:09-0400 Body temperature 97.1 [degF] Sheron J Beata Work Phone: [facility] Work Phone: 01-07-2021 08:09-0400 Body weight 70.79 kg Sheron Cota Work Phone: [facility] Work Phone: 01-07-2021 08:09-0400 Diastolic blood pressure 78 mm[Hg] Sheron Kerry Cota Work Phone: [facility] Work Phone: 01-07-2021 08:09-0400 Heart rate 68 /min Sheron Cota Work Phone: [facility] Work Phone: 01-07-2021 08:09-0400 SaO2% (BldA) [Mass fraction] 97 % Sheron Kerry Cota Work Phone: [facility] Work Phone: 01-07-2021 08:09-0400 Systolic blood pressure 108 mm[Hg] Sheron Cota Work Phone: [facility] Work Phone: Encounters Encounter Date Encounter Type Care Provider Facility Start: 04-28-2025 Encounter for gynecological examination (general) (routine) without abnormal findings HANNY KAYE [facility] Start: 04-28-2025 End: 04-28-2025 ambulatory XAVIER Valles BISIMARIAHJohn Facility:[facility] Start: 04-24-2025 End: 04-24-2025 Office outpatient visit 25 minutes Bree Espinoza MD Work Phone: [facility] Comment on above: Need for influenza v accination (Primary Dx); Acquired hypothyroidism; Mixed hyperlipidemia; Primary hypertension; Anxiety; Subacute cough; Elevated glucose Start: 04-24-2025 End: 04-24-2025 ambulatory [facility] Start: 04-14-2025 End: 04-14-2025 Office outpatient visit 15 minutes Bree Espinoza MD Work Phone: [facility] Comment on above: Acute non-recurrent maxillary sinusitis (Primary Dx) Start: 04-14-2025 End: 04-14-2025 ambulatory [facility] Start: 01-02-2025 End: 01-06-2025 Telephone encounter Hanny Kaye MD Work Phone: OB/Gynecology Comment on above: Orders Start: 10-24-2024 End: 10-24-2024 Office outpatient visit 25 minutes Bree Espinoza MD Work Phone: [facility] Comment on above: Anxiety (Primary Dx) ; Acquired hypothyroidism; Other migraine without status migrainosus, not intractable; Mixed hyperlipidemia; Frontal sinus pain Start: 10-24-2024 End: 10-24-2024 ambulatory [facility] Start: 04-25-2024 End: 04-25-2024 Office outpatient visit 15 minutes Bree Espinoza MD Work Phone: [facility] Comment on above: Primary hypertension (Primary Dx); Acquired hypothyroidism Start: 03-12-2024 End: 03-12-2024 Office outpatient visit 25 minutes Bree Espinoza MD Work Phone: [facility] Comment on above: Mixed hyperlipidemia (Primary Dx); Acquired hypothyroidism; Tension headache; Primary hypertension; Primary insomnia; Other migraine without status migrainosus, not intractable; Anxiety; Influenza vaccination declined Start: 03-11-2024 End: 03-11-2024 ambulatory BREE ESPINOZA [facility] Start: 09-05-2023 End: 09-05-2023 ambulatory BREE ESPINOZA [facility] Start: 09-05-2023 End: 09-05-2023 Office outpatient visit 25 minutes Bree Espinoza MD Work Phone: [facility] Comment on above: Screening mammogram for breast cancer (Primary Dx); Acquired hypothyroidism; Anxiety; Primary insomnia Start: 09-05-2023 End: 09-05-2023 Subsequent hospital visit by physician Rad External Film EF RAD EXTERNAL [employer]M [employer] Comment on above: Screening mammogram for breast cancer Start: 06-14-2023 End: 06-15-2023 ambulatory BREE ESPINOZA [facility] Start: 06-07-2023 End: 06-08-2023 ambulatory BREE ESPINOZA [facility] Start: 05-31-2023 End: 06-01-2023 ambulatory BREE ESPINOZA [facility] Start: 05-23-2023 End: 05-23-2023 ambulatory BREE ESPINOZA [facility] Start: 05-17-2023 End: 05-17-2023 ambulatory BREE ESPINOZA [facility] Start: 05-12-2023 End: 05-12-2023 ambulatory BREE ESPINOZA [facility] Start: 04-11-2023 End: 04-11-2023 ambulatory BREE ESPINOZA [facility] Start: 04-06-2023 End: 04-06-2023 ambulatory BREE ESPINOZA [facility] Start: 04-04-2023 End: 04-06-2023 ambulatory BREE ESPINOZA [facility] Start: 03-21-2023 ambulatory MD BREE LLOYD [facility]:[id number] Start: 03-21-2023 Patient encounter procedure Bree Espinoza Work Phone: [facility] Work Phone: Start: 03-16-2023 ambulatory MD BREE ESPINOZA Facility:[id number] Start: 03-16-2023 Patient encounter procedure Bree Espinoza Work Phone: [facility] Work Phone: Start: 03-09-2023 ambulatory MD BREE ESPINOZA Facility:[id number] Start: 03-09-2023 Patient encounter procedure Bree Espinoza Work Phone: [facility] Work Phone: Start: 03-07-2023 End: 03-07-2023 Office outpatient visit 25 minutes Bree Espinoza MD Work Phone: [facility] Comment on above: Nasal congestion (Pr imary Dx); Anxiety; Tinnitus of both ears; Acquired hypothyroidism Start: 03-02-2023 ambulatory MD BREE ESPINOZA Facility:[id number] Start: 03-02-2023 Patient encounter procedure Bree Espinoza Work Phone: [facility] Work Phone: Start: 02-23-2023 ambulatory MD BREE ESPINOZA Facility:[id number] Start: 02-21-2023 Patient encounter procedure Bree Espinoza Work Phone: [facility] Work Phone: Start: 02-21-2023 ambulatory MD BREE ESPINOZA Facility:[id number] Start: 02-16-2023 ambulatory MD BREE ESPINOZA Facility:[id number] Start: 02-16-2023 Patient encounter procedure Bree Espinoza Work Phone: [facility] Work Phone: Start: 02-16-2023 [id number], Provider : Gen Ramirez, Status: Pen, Time: 7:00 AM [facility]ree [facility] Start: 02-14-2023 ambulatory MD BREE ESPINOZA Facility:[id number] Start: 02-14-2023 Patient encounter procedure [facility] Start: 02-09-2023 ambulatory MD BREE ESPINOZA Facility:[id number] Start: 02-07-2023 ambulatory MD BREE ESPINOZA Facility:[id number] Start: 02-02-2023 Patient encounter procedure [facility]ree [facility]za [facility] Start: 02-02-2023 ambulatory MD BREE ESPINOZA Facility:[id number] Start: 02-01-2023 End: 02-01-2023 Office outpatient visit 25 minutes Bree Espinoza MD Work Phone: [facility] Comment on above: Anxiety (Primary Dx) ; Migraine without aura and without status migrainosus, not intractable; Cervicogenic headache; Elevated BP without diagnosis of hypertension; Reactive depression Start: 01-31-2023 Patient encounter procedure [facility]ree Espinoza [facility] Work [facility]: Start: 01-31-2023 ambulatory MD BREE ESPINOZA Facility:[id number] Start: 01-24-2023 ambulatory MD BREE ESPINOZA Facility:[id number] Start: 12-30-2022 End: 12-30-2022 Office outpatient visit 25 minutes Bree Espinoza MD Work Phone: [facility] Comment on above: Migraine without aur a and without status migrainosus, not intractable (Primary Dx); Neck pain; Cervicogenic headache; Anxiety; Reactive depression Start: 2022 Office outpatient vi sit 25 minutes Lenore Elias Work Phone: [facility] 205 DO Work Phone: Start: 2022 Patient encounter procedure Lenore Elias Work Phone: [facility] Work Phone: Start: 2022 ambulatory Ms. Lenore Elias Fac ility:[id number] Start: 07-29-2022 End: 07-29-2022 Subsequent hospital visit by physician Screen Mammo [facility] Mammogram Comment on above: Encounter for screen ing mammogram for malignant neoplasm of breast [Z12.31] Start: 07-21-2022 Patient encounter procedure Sheron Cota [facility] Work Phone: Start: 07-11-2022 AUDIT Sheron Cota [facility] 205 DO Work Phone: Start: 06-06-2022 End: 06-06-2022 Patient encounter procedure Yael Vogt MD Work Phone: OB/Gynecology Comment on above: PCB (post coital ble eding) (Primary Dx) Start: 06-06-2022 End: 06-06-2022 ambulatory Ob Ultrasound Work Phone: OB/Gynecology Start: 06-06-2022 End: 06-06-2022 Patient encounter procedure Network Engineer Waldo Ultrasound Work Phone: [facility] Start: 05-30-2022 End: 05-30-2022 Patient encounter procedure Hanny Kaye MD Work Phone: OB/Gynecology Comment on above: Encounter for gyneco logical examination (general) (routine) without abnormal findings (Primary Dx); Encounter for screening mammogram for malignant neoplasm of breast; PCB (post coital bleeding); PMB (postmenopausal bleeding) Start: 05-30-2022 End: 05-30-2022 Patient encounter status Hanny Kaye MD Work Phone: OB/Gynecology Start: 04-28-2022 Office outpatient vi sit 15 minutes Sheron Cota Work Phone: [facility] 300 Work Phone: Start: 04-28-2022 ambulatory Ms. Sheron Cota Facility:[id number] Start: 03-31-2022 Postop follow up vis it related to original px Sheron Estradapster Work Phone: [facility] 300 Work Phone: Start: 03-31-2022 ambulatory Ms. Sheron Cota Facility:[id number] Start: 03-09-2022 Chart Update Sheron Causey ster Work Phone: [facility] 300 Work Phone: Start: 03-02-2022 ambulatory Ms. Sheron Cota Facility:[id number] Start: 01-26-2022 Office outpatient ne w 30 minutes Sheron Estradapster Work Phone: [facility] 300 Work Phone: Start: 01-26-2022 ambulatory Mr. CECILE CHONGDRINE Facility:[id number] Start: 01-20-2022 ambulatory Ms. Sheron Cota Facility:[id number] Start: 01-20-2022 Periodic preventive med est patient 40-64yrs Sheron Payne Beata Work Phone: [facility] Work Phone: Start: 07-30-2021 AUDIT Sheron Payne Seanp ster Work Phone: [facility] 205 DO Work Phone: Start: 07-29-2021 Rx Renewal Sheron Payne Marium ster Work Phone: [facility] Work Phone: Start: 07-22-2021 Office outpatient vi sit 25 minutes Sheronmae Cota Work Phone: [facility] 205 DO Work Phone: Start: 07-22-2021 Patient encounter procedure Sheron Valladarester Work Phone: [facility] 205 DO Work Phone: Start: 07-08-2021 Rx Renewal Sheron Payne Harp ster Work Phone: [facility] Work Phone: Start: 06-15-2021 AUDIT Sheron Payne Harp ster Work Phone: [facility] Work Phone: Start: 06-03-2021 End: 06-03-2021 [facility] Start: 06-02-2021 Rx Renewal Sheron Payne Harp ster Work Phone: [facility] Work Phone: Start: 02-16-2021 Patient encounter procedure Sheron Valladarester Work Phone: [facility] Work Phone: Start: 02-01-2021 Rx Renewal Sheron Payne Harp ster Work Phone: [facility] 205 DO Work Phone: Start: 01-07-2021 Office outpatient vi sit 25 minutes Sheron Valladarester Work Phone: [facility] Work Phone: Start: 01-07-2021 Patient encounter procedure Sheron Valladarester Work Phone: [facility] Work Phone: Start: 01-11-2018 End: 01-11-2018 [facility] Date Procedure Procedure Detail Performing Clinician Start: 04-22-2025 Lipid 1996 panel - S dionicio or Plasma Bree Espinoza MD Work Phone: Start: 04-22-2025 Thyrotropin [Units/v olume] in Serum or Plasma Bree Espinoza MD Work Phone: Start: 10-23-2024 Thyrotropin [Units/v olume] in Serum or Plasma Bree Espinoza MD Work Phone: Start: 03-11-2024 Lipid 1996 panel - S dionicio or Plasma Bree Espinoza MD Work Phone: Start: 03-11-2024 Thyrotropin [Units/v olume] in Serum or Plasma Bree Espinoza MD Work Phone: Start: 09-05-2023 BI MAMMO BILATERAL SCREENING TOMOSYNTHESIS BREE ESPINOZA Start: 09-05-2023 TSH WITH REFLEX TO F REE T4 IF ABNORMAL BREE ESPINOZA Start: 09-05-2023 Mammography Bree jenkins MD Work Phone: Start: 09-05-2023 Thyrotropin [Units/v olume] in Serum or Plasma Rad Film Start: 09-05-2023 Screening digital br east tomosynthesis bi Bree Espinoza MD Work Phone: Start: 06-14-2023 FOLLOW UP IN PHYSICA L THERAPY BREE ESPINOZA Start: 06-07-2023 FOLLOW UP IN PHYSICA L THERAPY BREE ESPINOZA Start: 05-31-2023 FOLLOW UP IN PHYSICA L THERAPY BREE ESPINOZA Start: 05-23-2023 FOLLOW UP IN PHYSICA L THERAPY BREE ESPINOZA Start: 05-17-2023 FOLLOW UP IN PHYSICA L THERAPY BREE ESPINOZA Start: 04-04-2023 THYROXINE, FREE BREE AHUMADA Start: 04-04-2023 TSH WITH REFLEX TO F REE T4 IF ABNORMAL BREE ESPINOZA Start: 04-04-2023 AMB REFERRAL TO PHYS ICAL THERAPY BREE ESPINOZA Start: 04-04-2023 Thyrotropin [Units/v olume] in Serum or Plasma Bree Espinoza MD Work Phone: Start: 2022 Lipid 1996 panel - S dionicio or Plasma Bree Espinoza MD Work Phone: Start: 2022 Thyrotropin [Units/v olume] in Serum or Plasma Bree Espinoza MD Work Phone: Start: 07-29-2022 JARETT SCREENING W OLE Ford MD Work Phone: Start: 07-29-2022 Mammography Bree jenkins MD Work Phone: Start: 06-06-2022 Us pelvic nonobstetr ic real-time image complete Hanny Kaye MD Work Phone: Start: 01-19-2021 Mammography Hanny Cresencio Kaye MD Work Phone: Start: 12-30-2019 Thyrotropin [Units/v olume] in Serum or Plasma Bree Espinoza MD Work Phone: Start: 12-27-2017 Colonoscopy Bree jenkins MD Work Phone: section Sheron alva Work Phone: Colonoscopy Sheron forte Work Phone: Comment on above: 12/18/2017; Dilation and curettage Magi Brooke Work Phone: Operative procedure on ankle Sheron Cota Work Phone: Plan of Treatment Date Care Activity Detail Author Start: 2039 RSV High Risk: (Elde rly (60+) or Population) (1 - 1-dose 75+ series) RSV High Risk: (Elderly (60+) or Population) (1 - 1-dose 75+ series) [facility] Start: 2039 RSV Vaccine (1 - 1-d ose 75+ series) RSV Vaccine (1 - 1-dose 75+ series) [facility] Start: 07-18-2033 DTaP/Tdap/Td Vaccine s (3 - Td or Tdap) DTaP/Tdap/Td Vaccines (3 - Td or Tdap) [facility] Start: 04-22-2030 Lipid panel Lipid Panel [facility] Start: 05-14-2029 DTaP/Tdap/Td Vaccine s (2 - Td or Tdap) DTaP/Tdap/Td Vaccines (2 - Td or Tdap) [facility] Start: 05-14-2029 Urine microalbumin profile DTaP,Tdap,Td Vaccine (2 - Td or Tdap) [facility] Start: 03-11-2029 Lipid panel Lipid Panel [facility] Start: 12-28-2027 Screening for malign ant neoplasm of colon [facility] Start: 2027 Lipid panel Lipid Panel [facility] Start: 03-11-2027 Diabetes mellitus screening Diabetes Screening [facility] Start: 04-22-2026 Thyroid stimulating hormone measurement TSH Level [facility] Start: 01-19-2026 HPV TESTING HPV TESTING [facility] Start: 01-19-2026 PAP TESTING PAP TESTING [facility] Start: 01-19-2026 Screening for malign ant neoplasm of cervix Cervical Cancer Screening [facility] Start: 10-23-2025 Thyroid stimulating hormone measurement TSH Level [facility] Start: 10-23-2025 End: 10-23-2025 Patient encounter procedure 10/23/2025 8:00 AM EDT Office Visit [address] [phone] Bree Espinoza MD [address] [place] [address] [facility] Start: 09-22-2025 End: 12-21-2025 Basic metabolic 2000 panel - Serum or Plasma Basic Metabolic Panel Lab Routine Mixed hyperlipidemia Expected: 09/22/2025 (Approximate), Expires: 12/21/2025 [facility] Work Phone: Comment on above: Expected: 09/22/2025 (Approximate), Expires: 12/21/2025 Start: 09-22-2025 End: 12-21-2025 Hemoglobin A1c/Hemoglobin.total in Blood Hemoglobin A1C Lab Routine Elevated glucose Expected: 09/22/2025 (Approximate), Expires: 12/21/2025 [facility] Work Phone: Comment on above: Expected: 09/22/2025 (Approximate), Expires: 12/21/2025 Start: 09-22-2025 End: 12-21-2025 TSH with reflex to Free T4 if abnormal TSH with reflex to Free T4 if abnormal Lab Routine Mixed hyperlipidemia Expected: 09/22/2025 (Approximate), Expires: 12/21/2025 [facility] Work Phone: Comment on above: Expected: 09/22/2025 (Approximate), Expires: 12/21/2025 Start: 04-28-2025 End: 04-28-2025 Patient encounter procedure Mammogram Comment on above: mammogram screening annual Start: 04-24-2025 End: 04-24-2025 Patient encounter procedure 04/24/2025 8:00 AM EDT Office Visit [address] [phone] Bree Espinoza MD [address] [place] [address] [facility] Start: 03-26-2025 End: 10-24-2025 CBC W Auto Differential panel - Blood CBC and Auto Differential Lab Routine Mixed hyperlipidemia Expected: 03/26/2025 (Approximate), Expires: 10/24/2025 [facility] Work Phone: Comment on above: Expected: 03/26/2025 (Approximate), Expires: 10/24/2025 Start: 03-26-2025 End: 10-24-2025 Cobalamin (Vitamin B12) [Mass/volume] in Serum or Plasma Vitamin B12 Lab Routine Mixed hyperlipidemia Expected: 03/26/2025 (Approximate), Expires: 10/24/2025 [facility] Work Phone: Comment on above: Expected: 03/26/2025 (Approximate), Expires: 10/24/2025 Start: 03-26-2025 End: 10-24-2025 Comprehensive metabolic 2000 panel - Serum or Plasma Comprehensive Metabolic Panel Lab Routine Mixed hyperlipidemia Expected: 03/26/2025 (Approximate), Expires: 10/24/2025 [facility] Work Phone: Comment on above: Expected: 03/26/2025 (Approximate), Expires: 10/24/2025 Start: 03-26-2025 End: 10-24-2025 Lipid 1996 panel - Serum or Plasma Lipid Panel Lab Routine Mixed hyperlipidemia Expected: 03/26/2025 (Approximate), Expires: 10/24/2025 [facility] Work Phone: Comment on above: Expected: 03/26/2025 (Approximate), Expires: 10/24/2025 Start: 03-26-2025 End: 10-24-2025 TSH with reflex to Free T4 if abnormal TSH with reflex to Free T4 if abnormal Lab Routine Acquired hypothyroidism Mixed hyperlipidemia Expected: 03/26/2025 (Approximate), Expires: 10/24/2025 [facility] Work Phone: Comment on above: Expected: 03/26/2025 (Approximate), Expires: 10/24/2025 Start: 03-11-2025 Thyroid stimulating hormone measurement TSH Level [facility] Start: 03-03-2025 COVID-19 Vaccine ( season) COVID-19 Vaccine ( season) [facility] Start: 03-03-2025 Influenza vaccination [facility] Start: 10-24-2024 End: 04-25-2025 Basic metabolic 2000 panel - Serum or Plasma Basic Metabolic Panel Lab Routine Primary hypertension Expected: 10/24/2024 (Approximate), Expires: 04/25/2025 [facility] Work Phone: Comment on above: Expected: 10/24/2024 (Approximate), Expires: 04/25/2025 Start: 10-24-2024 End: 04-25-2025 TSH with reflex to Free T4 if abnormal TSH with reflex to Free T4 if abnormal Lab Routine Acquired hypothyroidism Expected: 10/24/2024 (Approximate), Expires: 04/25/2025 [facility] Work Phone: Comment on above: Expected: 10/24/2024 (Approximate), Expires: 04/25/2025 Start: 10-24-2024 End: 10-24-2024 Patient encounter procedure 10/24/2024 8:20 AM EDT Office Visit [place] [address] [phone] Bree Espinoza MD [address] [phone] [facility] Start: 09-04-2024 Screening for malign ant neoplasm of breast Mammogram [facility] Start: 09-04-2024 Thyroid stimulating hormone measurement TSH Level [facility] Start: 04-11-2024 End: 04-11-2024 Patient encounter procedure 04/11/2024 8:20 AM EDT Office Visit [place] [address] [place] [phone] Bree Espinoza MD [address] [address] [facility] Start: 04-04-2024 Thyroid stimulating hormone measurement TSH Level [facility] Start: 03-07-2024 End: 09-04-2024 CBC panel - Blood by Automated count CBC Lab Routine Acquired hypothyroidism Expected: 03/07/2024 (Approximate), Expires: 09/04/2024 [facility] Work Phone: Comment on above: Expected: 03/07/2024 (Approximate), Expires: 09/04/2024 Start: 03-07-2024 End: 09-04-2024 Comprehensive metabolic 2000 panel - Serum or Plasma Comprehensive Metabolic Panel Lab Routine Acquired hypothyroidism Expected: 03/07/2024 (Approximate), Expires: 09/04/2024 [facility] Work Phone: Comment on above: Expected: 03/07/2024 (Approximate), Expires: 09/04/2024 Start: 03-07-2024 End: 09-04-2024 Lipid 1996 panel - Serum or Plasma Lipid Panel Lab Routine Acquired hypothyroidism Expected: 03/07/2024 (Approximate), Expires: 09/04/2024 [facility] Work Phone: Comment on above: Expected: 03/07/2024 (Approximate), Expires: 09/04/2024 Start: 03-07-2024 End: 09-04-2024 TSH with reflex to Free T4 if abnormal TSH with reflex to Free T4 if abnormal Lab Routine Acquired hypothyroidism Expected: 03/07/2024 (Approximate), Expires: 09/04/2024 [facility] Work Phone: Comment on above: Expected: 03/07/2024 (Approximate), Expires: 09/04/2024 Start: 03-05-2024 End: 03-05-2024 Patient encounter procedure 03/05/2024 8:20 AM EDT Office Visit [address] [phone] Bree Espinoza MD [address] [place] [address] [id number] [facility] Start: 03-03-2024 COVID-19 Vaccine ( season) COVID-19 Vaccine ( season) [facility] Start: 03-03-2024 COVID-19 Vaccine ( season) COVID-19 Vaccine ( season) [facility] Start: 03-03-2024 Influenza vaccination Influenza Vacc ine (#1) [facility] Start: 09-05-2023 End: 09-05-2023 Patient encounter procedure 09/05/2023 8:00 AM EST Office Visit [facility] [address] [place] [phone] Bree Espinoza MD [address] [place] [address] [phone] [facility] Start: 2023 Thyroid stimulating hormone measurement TSH Level [facility] Start: 08-01-2023 Patient encounter procedure MCRANNUAL, Provider: Lenore Elias, Status: Pen, Time: 8:00 AM [facility] Work Phone: Start: 07-29-2023 Mammography Mammogram Screening [facility] Start: 07-29-2023 Screening for malign ant neoplasm of [facility] Start: 03-28-2023 YOVANI, Provider : Desi Boo, Status: Pen, Time: 4:15 PM PTRECHECKJeannette, Provider: Desi Boo, Status: Pen, Time: 4:15 PM [facility] Start: 03-21-2023 DRYNDL, Provider: Desi Boo, Status: Pen, Time: 4:15 PM DRYNDL, Provider: Desi Boo, Status: Pen, Time: 4:15 PM [facility]hab [facility] Work Phone: Start: 03-16-2023 DRYNDL, Provider: Gen Ramirez, Status: Pen, Time: 7:00 AM DRYNDL, Provider: Gen Ramirez, Status: Pen, Time: 7:00 AM [facility]: Start: 03-14-2023 DRYNDL, Provider: Desi Boo, Status: Pen, Time: 4:15 PM DRYNDL, Provider: Desi Boo, Status: Pen, Time: 4:15 PM [facility] Work Phone: Start: 03-09-2023 DRYNDL, Provider: Gen Ramirez, Status: Pen, Time: 7:00 AM DRYNDL, Provider: Gen Ramirez, Status: Pen, Time: 7:00 AM [facility] Work Phone: Start: 03-07-2023 End: 03-07-2024 TSH with reflex to Free T4 if abnormal [facility] Work Phone: Comment on above: Expected: 03/07/2023 (Approximate), Expires: 03/07/2024 Start: 03-07-2023 End: 03-07-2023 Patient encounter procedure 03/07/2023 8:20 AM EDT Office Visit [facility] [address] [place] [address] Bree Espinoza MD [address] [facility] [place] [address] [facility] Start: 03-03-2023 Covid-19 Vaccine ( season) Covid-19 Vaccine () [facility] Start: 03-03-2023 COVID-19 Vaccine () COVID-19 Vaccine () [facility] Start: 03-03-2023 Influenza vaccination [facility] Start: 02-23-2023 HETAL, Provider : Desi Boo, Status: Pen, Time: 4:30 PM PTRECHJENNIFER, Provider: Desi Boo, Status: Pen, Time: 4:30 PM [facility] Work Phone: Start: 02-21-2023 PTFUADULT4, Provider : Gen Ramirez, Status: Pen, Time: 7:00 AM PTFUADULT4, Provider: Gen Ramirez, Status: Pen, Time: 7:00 AM [facility] Work [facility]: Start: 02-16-2023 PTFUADULT4, Provider : Gen Ramirez, Status: Pen, Time: 7:00 AM PTFUADULT4, Provider: Gen Ramirez, Status: Pen, Time: 7:00 AM [facility] Work Phone: Start: 02-14-2023 PTFUADULT4, Provider : Gen Ramirez, Status: Pen, Time: 7:00 AM PTFUADULT4, Provider: Gen Ramirez, Status: Pen, Time: 7:00 AM [facility] Work [facility]: Start: 02-09-2023 PTFUADULT4, Provider : Desi Boo, Status: Pen, Time: 8:00 AM PTFUADULT4, Provider: Desi Boo, Status: Pen, Time: 8:00 AM [facility] Work Phone: Start: 02-07-2023 PTFUADULT4, Provider : Gen Ramirez, Status: Pen, Time: 7:00 AM PTFUADULT4, Provider: Gen Ramirez, Status: Pen, Time: 7:00 AM [facility] Work Phone: Start: 02-02-2023 PTFUADULT3, Provider : Desi Boo, Status: Pen, Time: 3:30 PM PTFUADULT3, Provider: Desi Boo, Status: Pen, Time: 3:30 PM [facility] Work Phone: Start: 02-01-2023 End: 02-01-2023 Patient encounter procedure 02/01/2023 8:20 AM EDT Office Visit [facility] [address] [place] [phone] Bree Espinoza MD [address] [facility] [place] [address] [facility] Start: 01-21-2023 Yearly Adult Physical Yearly Adult P [facility] Start: 2022 EPV, Provider: Lenore Elias, Status: Pen, Time: 8:00 AM EPV, Provider: Lenore Elias, Status: Pen, Time: 8:00 AM [facility] Work Phone: Start: 07-21-2022 NPV, Provider: Lenore Elias, Status: Pen, Time: 8:00 AM NPV, Provider: Lenore Elias, Status: Pen, Time: 8:00 AM [facility] Work Phone: Start: 07-03-2022 Depression Assessment Depression Ass essment [facility] Start: 05-30-2022 End: 05-30-2023 PELVIC US WHI PELVIC US WHI Anc Imaging Routine PCB (post coital bleeding) PMB (postmenopausal bleeding) Expected: 05/30/2022, Expires: 05/30/2023 [facility] Work Phone: Comment on above: Expected: 05/30/2022 , Expires: 05/30/2023 Start: 04-28-2022 FUV, Provider: Bree Gold, Status: Pen, Time: 3:30 PM FUV, Provider: Bree Gold, Status: Pen, Time: 3:30 PM [facility] 300 Work Phone: Start: 03-31-2022 FUV, Provider: Bree Gold, Status: Pen, Time: 3:30 PM FUV, Provider: Bree Gold, Status: Pen, Time: 3:30 PM [facility] 300 Work Phone: Start: 03-03-2022 Influenza vaccination INFLUENZA (#1) [facility] Start: 02-16-2022 FUV, Provider: Bree Gold, Status: Pen, Time: 1:30 PM FUV, Provider: Bree Gold, Status: Pen, Time: 1:30 PM [facility] 300 Work Phone: Start: 01-26-2022 NPV, Provider: Bree Gold, Status: Pen, Time: 11:30 AM NPV, Provider: Bree Gold, Status: Pen, Time: 11:30 AM [facility] Work Phone: Start: 01-20-2022 PHYSICAL, Provider: Sheron Cota, Status: Pen, Time: 8:00 AM PHYSICAL, Provider: Sheron Cota, Status: Pen, Time: 8:00 AM [facility] 205 DO Work Phone: Start: 01-19-2022 Mammography MAMMOGRAM [facility] Start: 01-19-2022 Screening for malign ant neoplasm of breast Mammogram [facility] Start: 07-22-2021 EPV, Provider: Lenore Elias, Status: Pen, Time: 8:00 AM EPV, Provider: Lenore Elias, Status: Pen, Time: 8:00 AM [facility] Work Phone: Start: 07-08-2021 EPV, Provider: Sheron Cota, Status: Pen, Time: 8:00 AM EPV, Provider: Sheron Cota, Status: Pen, Time: 8:00 AM [facility] Work Phone: Start: 07-06-2021 COVID-19 VACCINE (4 - Booster for Moderna series) COVID-19 VACCINE (4 - Booster for Moderna series) [facility] Start: 07-06-2021 COVID-19 Vaccine (4 - Moderna series) COVID-19 Vaccine (4 - Moderna series) [facility] Start: 07-03-2021 DEPRESSION ASSESSMENT DEPRESSION ASS ESSMENT [facility] Start: 12-29-2020 Thyroid stimulating hormone measurement TSH Level [facility] Start: 2014 Pneumococcal vaccination Pneumococcal Vaccine (1 of 1 - PCV) [facility] Start: 2014 Pneumococcal Vaccine : 50+ (1 of 1 - PCV) Pneumococcal Vaccine: 50+ (1 of 1 - PCV) [facility] Start: 2014 SHINGRIX VACCINE (1 of 2) SHINGRIX VACCINE (1 of 2) [facility] Start: 2014 Zoster Vaccines (1 o f 2) Zoster Vaccines (1 of 2) [facility] Start: 2009 COLOGUARD (FIT-DNA) COLOGUARD (FIT-D NA) [facility] Start: 2009 Colonoscopy COLONOSCOPY [facility] Start: 2009 COLORECTAL CANCER SCREENING COLORECTAL CANCER SCREENING [facility] Start: [address] COLONOGRAPHY [facility] Start: 2009 DIABETES SCREEN DIABETES SCREEN [facility] Start: 2009 Diabetes Screening Diabetes Screenin g [facility] Start: 2009 FECAL OCCULT BLOOD FECAL OCCULT BLOO D [facility] Start: 2009 Lipid 1996 panel - Serum or Plasma Lipid Screening [facility] Start: 2009 Lipid panel Lipid Screening [facility] Start: 2009 LIPID SCREEN LIPID SCREEN [facility] Start: 2009 Screening for malign ant neoplasm of colon [facility] Start: 2009 SIGMOIDOSCOPY SIGMOIDOSCOPY [facility] Start: 1985 Screening for malign ant neoplasm of cervix [facility] Start: 1983 Hepatitis B Vaccines (1 of 3 - 19+ 3-dose series) Hepatitis B Vaccines (1 of 3 - 19+ 3-dose series) [facility] Start: 1983 Urine microalbumin profile DTAP,TDAP,TD (1 - Tdap) [facility] Start: 1982 Anxiety Screening Anxiety Screening [facility] Start: 1982 Depression Screening Depression Scre ening [facility] Start: 1982 Diabetes mellitus screening Diabetes Screening [facility] Start: 1982 HEPATITIS C SCREENING HEPATITIS C [facility] Start: 1982 Hepatitis C screening Hepatitis C [facility] Start: 1982 HIV SCREENING HIV SCREENING [facility] Start: 1982 HIV screening HIV Screening [facility] Start: 1965 MMR Vaccines (1 of 1 - Standard series) MMR Vaccines (1 of 1 - Standard series) [facility] Start: 1964 HEPATITIS B (1 of 3 - 3-dose series) HEPATITIS B (1 of 3 - 3-dose series) [facility] Start: 1964 Hepatitis B Vaccine (1 of 3 - 3-dose series) Hepatitis B Vaccine (1 of 3 - 3-dose series) [facility] Start: 1964 Hepatitis B Vaccines (1 of 3 - 3-dose series) Hepatitis B Vaccines (1 of 3 - 3-dose series) [facility] Start: 1964 HIV screening [facility] Screening [facility] Start: 1964 Screening for malign ant neoplasm of colon [facility] Start: 1964 Yearly Adult Physical Yearly Adult P hysical [facility] End: 02-01-2026 DBT Breast - bilateral screening JARETT SCREENING W OLE Radiology Routine Breast screening 1 Occurrences starting 01/06/2025 until 02/01/2026 [facility] Work Phone: Comment on above: 1 Occurrences starti ng 01/06/2025 until 02/01/2026 End: 06-29-2023 JARETT SCREENING W OLE JARETT SCREENING W OLE Radiology Routine Encounter for screening mammogram for malignant neoplasm of breast 1 Occurrences starting 05/30/2022 until 06/29/2023 [facility] Work Phone: Comment on above: 1 Occurrences starti ng 05/30/2022 until 06/29/2023 [place] [facility] Immunizations Immunization Date Immunization Notes Care Provider [facility] 04-24-2025 influenza, seasonal, injectable, preservative free Bree Espinoza MD Work Phone: [facility] Work Phone: 2022 Moderna COVID-19 Biv al Booster 50 MCG/0.5ML Intramuscular Suspension Lenore Elias Work Phone: [facility] Work Phone: Comment on above: Series: 08-01-2022 pneumococcal conjuga te vaccine, 7 valent Lenore Elias Work Phone: [facility] Work Phone: Comment on above: Series: 05-11-2021 Moderna COVID-19 Vaccine 100 MCG/0.5ML Intramuscular Suspension Sheron Cota Work Phone: [facility] 11-03-2020 Moderna COVID-19 Vaccine 100 MCG/0.5ML Intramuscular Suspension Sheron Cota Work Phone: [facility] Work Phone: 09-30-2020 Moderna COVID-19 Vaccine 100 MCG/0.5ML Intramuscular Suspension Sheron Cota Work Phone: [facility] Work Phone: 07-16-2020 zoster vaccine recombinant Sheron Payne Maspeth Work Phone: [facility] Work Phone: Comment on above: Series: 04-02-2020 influenza virus vaccine, unspecified formulation Sheron Payne Maspeth Work Phone: [facility] Work Phone: Comment on above: Series: 04-02-2020 influenza, seasonal, injectable Sheron Payne Maspeth Work Phone: [facility] Work Phone: Comment on above: Series: 04-02-2020 zoster vaccine recombinant Sheron Payne Maspeth Work Phone: [facility] Work Phone: Comment on above: Series: 05-14-2019 influenza, injectabl e, quadrivalent, preservative free; Translations: [Flulaval Quadrivalent 0.5 ML Intramuscular Suspension Prefilled Syringe] Sheron Payne Maspeth Work Phone: [facility] Work Phone: Comment on above: Series: 05-14-2019 tetanus toxoid, redu gianni diphtheria toxoid, and acellular pertussis vaccine, adsorbed; Translations: [Tdap (Boostrix)] Sheron Payne Maspeth Work Phone: [facility] Work Phone: Comment on above: Series: 05-14-2019 influenza virus vaccine, unspecified formulation Bree Espinoza MD Work Phone: [facility] Work Phone: Payers Date Payer Category Payer [employer] [place] [facility] [id number] 2021 Self-pay 2014 [employer] Blue Shield BLUE CARD PPO OOS [id number] 2014 Unknown 2014 Unknown [id number] 1964 Unknown [id number] 2..1.181367.3.579. 2.356 1964 Unknown [id number] 2.0.1.414010.3.579. 2.356 1964 Unknown [id number] 2..1.479852.3.579. 2.356 1964 Unknown [id number] 2.0.1.383264.3.579. 2.356 1964 Unknown [id number] 2..1.632606.3.579. 2.356 1964 Unknown [id number] 2.0.1.860543.3.579. 2.356 1964 Unknown [id number] 2.840.1.606727.3.579. 2.1069 1964 Unknown [id number] 2.16.840.1.435858.3.579. 2.1068 1964 Unknown [id number] 2.16.840.1.163029.3.579. 2.1068 1964 Unknown [id number] 2.16.840.1.218324.3.579. 2.1068 1964 Unknown [id number] 2.16.840.1.509418.3.579. 2.1068 1964 Unknown [id number] 2.16.840.1.440228.3.579. 2.1068 1964 Unknown [id number] 2.16.840.1.469124.3.579. 2.1068 1964 Unknown [id number] 2.16.840.1.495139.3.579. 2.1068 1964 Unknown [id number] 2.16.840.1.556467.3.579. 2.1068 1964 Unknown [id number] 2.16.840.1.671824.3.579. 2.1068 1964 Unknown [id number] 2.16.840.1.645311.3.579. 2.1068 1964 Unknown [id number] 2.16.840.1.077752.3.579. 2.1068 1964 Unknown [id number] 2.16.840.1.632663.3.579. 2.1068 1964 Unknown [id number] 2.16.840.1.096161.3.579. 2.1242 1964 Unknown [id number] 2.16.840.1.164383.3.579. 2.1242 1964 Unknown [id number] 2.16.840.1.236155.3.579. 2.1242 1964 Unknown [id number] 2.16.840.1.038306.3.579. 2.1242 1964 Unknown [id number] 2.16.840.1.573267.3.579. 2.1243 1964 Unknown [id number] 2.16.840.1.120959.3.579. 2.1242 1964 Unknown [id number] 2.16.840.1.657565.3.579. 2.1242 1964 Unknown [id number] 2.16.840.1.921837.3.579. 2.1242 1964 Unknown [id number] 2.16.840.1.513541.3.579. 2.1242 1964 Unknown [id number] 2.16.840.1.871763.3.579. 2.1244 1964 Unknown [id number] 2.16.840.1.994992.3.579. 2.1244 1964 Unknown [id number] 2.16.840.1.322211.3.579. 2.1244 1964 Unknown [id number] 2.16.840.1.887250.3.579. 2.1244 1964 Unknown [id number] 2.16.840.1.806298.3.579. 2.4 1964 Unknown [id number] 2.16.840.1.606135.3.579. 2.4 1964 Unknown [id number] 2.16.840.1.745127.3.579. 2.124 Unknown [id number] 2.16.840.1.724984.3.579. 2.462 Social History Date Type Detail Facility Start: 12-30-2022 End: 04-25-2024 Consumes alcohol Consumes alcohol [facility] Start: 05-30-2022 End: 12-30-2022 Tobacco smoking status NHIS Ex-smoker [facility] History of tobacco use Current smoker [facility] Start: 05-30-2022 End: 12-30-2022 Tobacco use and exposure Smokeless tobacco non-user [facility] Start: 05-30-2022 End: 04-24-2025 Alcohol intake Current drinker of alcohol (finding) [facility] Start: 06-27-2019 History SDOH Alcohol Frequency 4 [facility] Start: 06-27-2019 History SDOH Alcohol Std Drinks 1 [facility] Start: 06-27-2019 History SDOH Social Connections Phone 3 [facility] Start: 06-27-2019 History SDOH Social Connections Get Together 2 [facility] Start: 06-27-2019 History SDOH Financial 5 [facility] Start: 05-30-2022 Tobacco Comment 6 months in college [facility] Start: 12-02-2016 Alcohol Comment social [facility] Start: 1965 Sex Assigned At Not on file [facility] Start: 05-27-2022 End: 10-24-2024 Exposure to SARS-CoV-2 (event) Not sure [facility] History of tobacco use Cigarette Smoker [facility] Work Phone: Start: 12-30-2022 End: 04-25-2024 Tobacco use panel [facility] Do you belong to any clubs or organizations such as alevism groups, unions, fraternal or athletic groups, or school groups? Yes [facility] Are you now , , , , never or living with a partner? [facility] How often to you hav e a drink containing alcohol? 2-3 time sa week [facility] How many standard dr inks containing alcohol do you have on a typical day? 1 or 2 [facility] How often do you hav e 6 or more drinks on 1 occasion? Never [facility] Start: 05-27-2022 How hard is it for y ou to pay for the very basics like food, housing, medical care, and heating Not hard at all [facility] Do you feel stress - tense, restless, nervous, or anxious, or unable to sleep at night because your mind is troubled all the time - these days [OSQ] Rather much [facility] (I/We) worried gabriela er (my/our) food would run out before (I/we) got money to buy more. Never true [facility] Start: 05-27-2022 Sex Female (finding) [facility] Functional Status Date Assessment Result Facility 04-24-2025 Functional status 124/80 [facility] Work Phone: 04-24-2025 Vital signs 88 04/24/2025 8: 04 AM EDT Monica Paredes LPN [facility] Work Phone: 04-24-2025 [facility] Work Phone: 04-14-2025 Functional status 118/78 [facility] Work Phone: 04-14-2025 Vital signs 88 04/14/2025 11 :42 AM EDT Monica Paredes LPN [facility] Work Phone: 04-14-2025 [facility] Work Phone: Clinical Notes 01-14-2022 to 04-28-2025 Monica Paredes LPN - 04/24/2025 8:00 AM Jamal Espinoza MD - 04/24/2025 8:00 AM Kirill Paredes LPN - 04/14/2025 11:40 AM Jamal Espinoza MD - 04/14/2025 11:40 AM EDTPatient Instructions Note Date & Type Note Facility 04-28-2025 Note HNO ID: [id number] Author: HANNY LOCKE MD Service: ? 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 Has some vulvar itching x 6 weeks. Has tried topical hydrocortisone with some relief. No new soaps/detergents. Pt reports itching and some discomfort with urination. Postmenopausal: Yes HRT use: No. Still get period: No LMP: Menopause symptoms: Hot flashes; Night sweats; Vaginal dryness Time with current partner: 32 years Number of lifetime partners: 5 control frequency: Always HPV vaccine: No; Last pap smear: 2020 History of abnormal pap: No, all prior PAP smears have been normal Bothersome pelvic pain: No Last mammogram: 2024 normal History of abnormal mammogram: No OB History Gravida5 Para2 Term2 Preterm0 AB0 Living2 SAB0 IAB0 Ectopic0 Multiple0 Live Births0 Comment: 2 boys Dependency Director History LMP: 10/04/2016, Perimenopausal Age at Menarche: 13 Age at First : Age at Menopause: Dependency Director History Comments: Sexual Activity: Yes; Male Contraception: Tubal Ligation PAST MEDICAL HISTORY Diagnosis Date Anxiety Hyperlipemia Hypothyroid PAST SURGICAL HISTORY Procedure Laterality Date ANKLE SURGERY HX Left 01/17/2018 plates and screws placed , LOW CERV, IN-HOSP CAR x2 D+C 06/03/2021 HYSTEROSCOPY- benign [facility] TUBAL LIGATION HX FAMILY HISTORY Problem Relation Age of Onset Breast Cancer Mother Hypertension Mother Hyperlipidemia Mother Hyperlipidemia Father Hypertension Brother Breast Cancer Maternal Grandmother Hypertension Maternal Grandfather Diabetes Paternal Grandmother SOCIAL HISTORY Social History Tobacco Use Smoking status: Former Smokeless tobacco: Never Tobacco comments: 6 months in college Vaping Use Vaping status: Never Used Substance Use Topics Alcohol use: Yes Comment: social Drug use: No REVIEW OF SYSTEMS Abdomen: No abdominal pain, nausea, vomiting, diarrhea, or constipation. No bloating, early satiety, indigestion, or increased flatulence. Bladder: No dysuria, gross hematuria, urinary frequency, urinary urgency, or incontinence Breast: No breast lumps, nipple d/c, overlying skin changes, redness or skin retraction Allergies and current medication updated:Yes SENSITIVE EXAM: The sensitive examination was discussed with the Patient or Patient's Authorized Research Assistant. As applicable, any other physician, advance practice provider, medical student, or other health professional student that will be observing or involved in the sensitive examination for educational or training purposes was discussed with the Patient or Authorized Research Assistant. The Patient or Authorized Research Assistant has agreed to proceed with the sensitive examination. (Sensitive examination includes inspection and/or palpation of the breasts, pelvis, prostate and anorectal regions). EXAM: BP 138/86 Ht 5' 3 (1.60m) Wt 167 lb (75.8kg) LMP 10/04/2016 BMI 29.59 kg/(m2). GENERAL: pleasant, female in no apparent distress HEENT: Normocephalic, atraumatic, mucus membranes moist, and no lesions NECK: Supple, full range of motion, no adenopathy, and thyroid normal DERMATOLOGY: Normal, without lesions, non-icteric, and non-hirsute BREAST: soft, non-tender, symmetric, no dominant mass, normal nipple-areolar complex, no lymphadenopathy, and no nipple discharge CHEST: Normal inspiratory effort ABDOMEN: soft, non-tender, and no masses PELVIC: external genitalia normal, normal Bartholin's glands, urethra, [place]'s glands, no vulvar lesions, no cervical lesions, good vaginal support, physiologic discharge present, normal appearing perineal body and perianal region BIMANUAL: uterus normal size, shape and consistency, no adnexal masses, and non-tender RECTOVAGINAL: deferred. NEURO: alert and oriented x3,exam grossly non-focal EXTREMITIES: normal ASSESSMENT/PLAN: (Z01.419) Encounter for gynecological examination (general) (routine) without abnormal findings (primary encounter diagnosis) (Z11.51) Encounter for screening for human papillomavirus (HPV) (Z12.4) Pap smear for cervical cancer screening (Z12.31) Encounter for screening mammogram for breast cancer (R30.0) Dysuria (N76.2) Acute vulvitis 1) Health maintenance: Pap done with HPV. Mammogram ordered Mammogram up to date Nutrition, exercise and routine health maintenance exams reviewed. Colon cancer screening: up to date with screening 2) Follow up one year or sooner as needed 3) lotrisone for contact dermatitis?? 4) urine culture sent Medical Decision Making: Problems: Low: Acute, uncomplicated illness or injury Data: Unique test(s) ordered: 2 Risk: Moderate: Drug management Medical Decision Making Level: 3 - Low Hanny Hooks MD [facility] 04-28-2025 Note HNO ID: [id number] Author: JUAN FORD [employer] Service: ? Author Type: Revenue Enforcement Agent Type: Progress Notes Filed: 04/28/2025 15:19 Note Text: Radiology Service Progress Note PATIENT NAME: Kia Villanueva DATE OF SERVICE: April 28, 2025 TIME: 3:19 PM PATIENT IDENTITY VERIFICATION COMPLETED USING TWO (2) IDENTIFIERS: Name and Date of confirmed by patient verbally. FALL SCREENING: Has the patient had 2 falls in the last year or 1 fall with injury or currently using an Ambulatory Assistive Device (Walker, Cane, Wheelchair, Crutches, etc.)? No PATIENT GENDER DATA: Assigned female at . status: : No status: NO. PATIENT RELEVANT IMPLANT DATA REVIEWED: Not Applicable PATIENT PRESENTS WITH AN IMPLANTABLE OR ATTACHED BUTTON RIVETER: No RADIOLOGY DEPARTMENT: Mammography PERIPHERAL IV DATA: Not applicable SIGNED BY: Juan Ford [employer] April 28, 2025 3:19 PM [facility] 04-24-2025 History of Present illness Narrative Med check; labs Patient presents for periodic surveillance of chronic medical problems. Subjective Kia Villanueva is a 59 y.o. female who presents for Annual Exam. HPI Feet ankles swelling at times, gone in morning, worse as day goes on. ON amlodipine, but this does not sound typical for that. Started this summer, just got some compression stockings to try. Recently treated with zithromax for sinus infection. Still has cough, and has coughing spells where she feels she can't catch her breath, has been about a month. Does not feel sick. 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 Review of Systems All other systems reviewed and are negative. . Allergies[1] Medications Ordered Prior to Encounter[2] Problem List[3] Objective Visit Vitals BP 124/80 (BP Location: Left arm, Patient Position: Sitting) Pulse 88 Physical Exam Vitals and nursing note reviewed. Constitutional: General: She is not in acute distress. Appearance: Normal appearance. She is not toxic-appearing. HENT: Head: Normocephalic and atraumatic. Cardiovascular: Rate and Rhythm: Normal rate and regular rhythm. Heart sounds: No murmur heard. Pulmonary: Effort: Pulmonary effort is normal. Breath sounds: Normal breath sounds. Musculoskeletal: Cervical back: Neck supple. No rigidity. Comments: Skin: General: Skin is warm and dry. Neurological: General: No focal deficit present. Mental Status: She is alert. Psychiatric: Mood and Affect: Mood normal. Behavior: Behavior normal. Orders Only on 03/26/2025 Component Date Value Ref Range Status WHITE BLOOD CELL COUNT 04/22/2025 4.7 3.8 - 10.8 Thousand/uL Final RED BLOOD CELL COUNT 04/22/2025 4.24 3.80 - 5.10 Million/uL Final HEMOGLOBIN 04/22/2025 13.4 11.7 - 15.5 g/dL Final HEMATOCRIT 04/22/2025 40.4 35.0 - 45.0 % Final MCV 04/22/2025 95.3 80.0 - 100.0 fL Final MCH 04/22/2025 31.6 27.0 - 33.0 pg Final MCHC 04/22/2025 33.2 32.0 - 36.0 g/dL Final Comment: For adults, a slight decrease in the calculated MCHC value (in the range of 30 to 32 g/dL) is most likely not clinically significant; however, it should be interpreted with caution in correlation with other red cell parameters and the patient's clinical condition. RDW 04/22/2025 13.5 11.0 - 15.0 % Final PLATELET COUNT 04/22/2025 284 140 - 400 Thousand/uL Final MPV 04/22/2025 10.8 7.5 - 12.5 fL Final ABSOLUTE NEUTROPHILS 04/22/2025 2,322 1,500 - 7,800 cells/uL Final ABSOLUTE LYMPHOCYTES 04/22/2025 1,753 850 - 3,900 cells/uL Final ABSOLUTE MONOCYTES 04/22/2025 390 200 - 950 cells/uL Final ABSOLUTE EOSINOPHILS 04/22/2025 197 15 - 500 cells/uL Final ABSOLUTE BASOPHILS 04/22/2025 38 0 - 200 cells/uL Final NEUTROPHILS 04/22/2025 49.4 % Final LYMPHOCYTES 04/22/2025 37.3 % Final MONOCYTES 04/22/2025 8.3 % Final EOSINOPHILS 04/22/2025 4.2 % Final BASOPHILS 04/22/2025 0.8 % Final GLUCOSE 04/22/2025 100 (H) 65 - 99 mg/dL Final Comment: Fasting reference interval For someone without known diabetes, a glucose value between 100 and 125 mg/dL is consistent with prediabetes and should be confirmed with a follow-up test. UREA NITROGEN (BUN) 04/22/2025 14 7 - 25 mg/dL Final CREATININE 04/22/2025 0.81 0.50 - 1.05 mg/dL Final EGFR 04/22/2025 83 > OR = 60 mL/min/1.73m2 Final SODIUM 04/22/2025 140 135 - 146 mmol/L Final POTASSIUM 04/22/2025 4.5 3.5 - 5.3 mmol/L Final CHLORIDE 04/22/2025 106 98 - 110 mmol/L Final CARBON DIOXIDE 04/22/2025 24 20 - 32 mmol/L Final ELECTROLYTE BALANCE 04/22/2025 10 7 - 17 mmol/L (calc) Final CALCIUM 04/22/2025 9.2 8.6 - 10.4 mg/dL Final PROTEIN, TOTAL 04/22/2025 6.9 6.1 - 8.1 g/dL Final ALBUMIN 04/22/2025 4.2 3.6 - 5.1 g/dL Final BILIRUBIN, TOTAL 04/22/2025 0.4 0.2 - 1.2 mg/dL Final ALKALINE PHOSPHATASE 04/22/2025 77 37 - 153 U/L Final AST 04/22/2025 18 10 - 35 U/L Final ALT 04/22/2025 17 6 - 29 U/L Final CHOLESTEROL, TOTAL 04/22/2025 197 <200 mg/dL Final HDL CHOLESTEROL 04/22/2025 64 > OR = 50 mg/dL Final TRIGLYCERIDES 04/22/2025 211 (H) <150 mg/dL Final Comment: If a non-fasting specimen was collected, consider repeat triglyceride testing on a fasting specimen if clinically indicated. Matti et al. J. of Clin. Lipidol. 2015;9:129-169. LDL-CHOLESTEROL 04/22/2025 100 (H) mg/dL (calc) Final Comment: Reference range: <100 Desirable range <100 mg/dL for primary prevention; <70 mg/dL for patients with CHD or diabetic patients with > or = 2 CHD risk factors. LDL-C is now calculated using the Colton-Loi calculation, which is a validated novel method providing better accuracy than the Friedewald equation in the estimation of LDL-C. Colton PADRON et al. ELIU. 2013;310(19): 3963-8581 (http://education.Aircraft Logs.com/faq/GZE924) CHOL/HDLC RATIO 04/22/2025 3.1 <5.0 (calc) Final NON HDL CHOLESTEROL 04/22/2025 133 (H) <130 mg/dL (calc) Final Comment: For patients with diabetes plus 1 major ASCVD risk factor, treating to a non-HDL-C goal of <100 mg/dL (LDL-C of <70 mg/dL) is considered a therapeutic option. TSH W/REFLEX TO FT4 04/22/2025 4.42 0.40 - 4.50 mIU/L Final VITAMIN B12 04/22/2025 1,126 (H) 200 - 1,100 pg/mL Final Assessment/Plan Problem List Items Addressed This Visit Anxiety Hypothyroidism Relevant Medications predniSONE (Deltasone) 10 mg tablet Mixed hyperlipidemia Relevant Orders Basic Metabolic Panel TSH with reflex to Free T4 if abnormal Primary hypertension Relevant Medications predniSONE (Deltasone) 10 mg tablet Other Visit Diagnoses Need for influenza vaccination - Primary Relevant Orders Flu vaccine, trivalent, preservative free, age 6 months and greater (Fluarix/Fluzone/Flulaval) (Completed) Subacute cough Elevated glucose Relevant Orders Hemoglobin A1C Follow up six months. Labs prior, call concerns. Side effects of prednisone discussed. Bree Espinoza MD [1] Allergies Allergen Reactions Amoxicillin-Pot Clavulanate Headache and Nausea/vomiting [2] Current Outpatient Medications on File Prior to Visit Medication Sig Dispense Refill acyclovir (Zovirax) 200 mg capsule Take 1 capsule (200 mg) by mouth 5 times a day. 10 capsule 3 amLODIPine (Norvasc) 5 mg tablet Take 1 tablet (5 mg) by mouth once daily. 30 tablet 5 atorvastatin (Lipitor) 10 mg tablet Take 1 tablet (10 mg) by mouth once daily. 30 tablet 5 buPROPion XL (Wellbutrin XL) 300 mg 24 hr tablet Take 1 tablet (300 mg) by mouth once daily. DO NOT CRUSH CHEW OR SPLIT 30 tablet 5 cholecalciferol (Vitamin D-3) 25 MCG (1000 UT) capsule Take 1 capsule (25 mcg) by mouth once daily. cyanocobalamin (Vitamin B-12) 1,000 mcg tablet Take 0.5 tablets (500 mcg) by mouth once daily. fexofenadine (Magaly) 180 mg tablet Take 1 tablet (180 mg) by mouth once daily. fluticasone (Flonase) 50 mcg/actuation nasal spray Administer 1 spray into each nostril once daily. Shake gently. Before first use, prime pump. After use, clean tip and replace cap. levothyroxine (Synthroid, Levoxyl) 88 mcg tablet Take 1 tablet (88 mcg) by mouth once daily. 30 tablet 5 magnesium citrate 125 mg capsule Take 1 each by mouth see administration instructions. multivitamin tablet Take 1 tablet by mouth once daily. rizatriptan (Maxalt) 5 mg tablet TAKE 1 TABLET BY MOUTH AT ONSET OF HEADACHE. MAY REPEAT IN 2 HOURS. MAX 30/MG 24 HOURS. 9 tablet 1 sertraline (Zoloft) 100 mg tablet TAKE 1 AND 1/2 TABLETS DAILY 45 tablet 5 [DISCONTINUED] azithromycin (Zithromax) 500 mg tablet Take 1 tablet (500 mg) by mouth once daily for 5 days. 5 tablet 0 No current facility-administered medications on file prior to visit. [3] Patient Active Problem List Diagnosis Anxiety Hypothyroidism Insomnia Migraine Mixed hyperlipidemia Recurrent cold sores Primary hypertension documented in this encounter [facility] Work Phone: 04-14-2025 History of Present illness Narrative Sinus pain and pressure x 3 weeks; bilateral ears feel full; right ear hurts and found blood on her left ear this morning. Subjective Kia Villanueva is a 59 y.o. female who presents for Sinusitis. HPI 3 weeks of facial pain, worse when bending over, congestion, drainage. Throat feels dry in morning. Review of Systems All other systems reviewed and are negative. . Allergies[1] Medications Ordered Prior to Encounter[2] Problem List[3] Objective Visit Vitals BP 118/78 (BP Location: Right arm, Patient Position: Sitting) Pulse 88 Physical Exam Vitals and nursing note reviewed. Constitutional: General: She is not in acute distress. Appearance: Normal appearance. She is not toxic-appearing. HENT: Head: Normocephalic and atraumatic. Right Ear: Tympanic membrane normal. Left Ear: Tympanic membrane normal. Ears: Comments: Purulent drainage posterior Cardiovascular: Rate and Rhythm: Normal rate and regular rhythm. Pulmonary: Effort: Pulmonary effort is normal. Breath sounds: Normal breath sounds. Musculoskeletal: Comments: Skin: General: Skin is warm and dry. Neurological: General: No focal deficit present. Mental Status: She is alert and oriented to person, place, and time. Psychiatric: Mood and Affect: Mood normal. Behavior: Behavior normal. Assessment/Plan Problem List Items Addressed This Visit None Visit Diagnoses Acute non-recurrent maxillary sinusitis - Primary Relevant Medications azithromycin (Zithromax) 500 mg tablet Call concerns. Bree Espinoza MD [1] Allergies Allergen Reactions Amoxicillin-Pot Clavulanate Headache and Nausea/vomiting [2] Current Outpatient Medications on File Prior to Visit Medication Sig Dispense Refill acyclovir (Zovirax) 200 mg capsule Take 1 capsule (200 mg) by mouth 5 times a day. 10 capsule 3 amLODIPine (Norvasc) 5 mg tablet Take 1 tablet (5 mg) by mouth once daily. 30 tablet 5 atorvastatin (Lipitor) 10 mg tablet Take 1 tablet (10 mg) by mouth once daily. 30 tablet 5 buPROPion XL (Wellbutrin XL) 300 mg 24 hr tablet Take 1 tablet (300 mg) by mouth once daily. DO NOT CRUSH CHEW OR SPLIT 30 tablet 5 cholecalciferol (Vitamin D-3) 25 MCG (1000 UT) capsule Take 1 capsule (25 mcg) by mouth once daily. cyanocobalamin (Vitamin B-12) 1,000 mcg tablet Take 0.5 tablets (500 mcg) by mouth once daily. fexofenadine (Magaly) 180 mg tablet Take 1 tablet (180 mg) by mouth once daily. fluticasone (Flonase) 50 mcg/actuation nasal spray Administer 1 spray into each nostril once daily. Shake gently. Before first use, prime pump. After use, clean tip and replace cap. levothyroxine (Synthroid, Levoxyl) 88 mcg tablet Take 1 tablet (88 mcg) by mouth once daily. 30 tablet 5 magnesium citrate 125 mg capsule Take 1 each by mouth see administration instructions. multivitamin tablet Take 1 tablet by mouth once daily. rizatriptan (Maxalt) 5 mg tablet TAKE 1 TABLET BY MOUTH AT ONSET OF HEADACHE. MAY REPEAT IN 2 HOURS. MAX 30/MG 24 HOURS. 9 tablet 1 sertraline (Zoloft) 100 mg tablet TAKE 1 AND 1/2 TABLETS DAILY 45 tablet 5 No current facility-administered medications on file prior to visit. [3] Patient Active Problem List Diagnosis Anxiety Hypothyroidism Insomnia Migraine Mixed hyperlipidemia Recurrent cold sores documented in this encounter [facility] Work Phone: 01-02-2025 Telephone encounter Note Mammogram w/Ole pending. Please file and will have PSS contact Pt to get scheduled. Brisa Haywood RN [facility] 01-02-2025 Miscellaneous Notes Mammogram w/Ole pending. Please file and will have PSS contact Pt to get scheduled. Brisa Haywood RN Patient calling in requesting her yearly mammogram orders. Please review and place if appropriate. Tiffani Farley January 02, 2025 3:51 PM documented in this encounter [facility] 01-02-2025 Telephone encounter Note Patient calling in requesting her yearly mammogram orders. Please review and place if appropriate. Tiffani Farley January 02, 2025 3:51 PM [facility] 10-24-2024 History of Present illness Narrative Med check; labs Subjective Kia Villanueva is a 59 y.o. female who presents for Annual Exam. HPI Here for routine check up. States has had ear problems and facial pressure. Has been to Urgent care twice and had two rounds of doxycycline. On allergy meds flonase, magaly and benadryl, for seasonal allergies which are flared. Symptoms for three months. 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 Review of Systems All other systems reviewed and are negative. . Allergies[1] Medications Ordered Prior to Encounter[2] Problem List[3] Objective Visit Vitals BP 124/78 (BP Location: Left arm, Patient Position: Sitting) Pulse 88 Physical Exam Vitals and nursing note reviewed. Constitutional: General: She is not in acute distress. Appearance: Normal appearance. She is not toxic-appearing. HENT: Head: Normocephalic and atraumatic. Right Ear: Tympanic membrane normal. Left Ear: Tympanic membrane normal. Cardiovascular: Rate and Rhythm: Normal rate and regular rhythm. Heart sounds: No murmur heard. Pulmonary: Effort: Pulmonary effort is normal. Breath sounds: Normal breath sounds. Musculoskeletal: Cervical back: Neck supple. No rigidity. Comments: Skin: General: Skin is warm and dry. Neurological: General: No focal deficit present. Mental Status: She is alert and oriented to person, place, and time. Psychiatric: Mood and Affect: Mood normal. Behavior: Behavior normal. Orders Only on 10/23/2024 Component Date Value Ref Range Status GLUCOSE 10/23/2024 95 65 - 99 mg/dL Final Comment: Fasting reference interval UREA NITROGEN (BUN) 10/23/2024 17 7 - 25 mg/dL Final CREATININE 10/23/2024 0.90 0.50 - 1.05 mg/dL Final EGFR 10/23/2024 73 > OR = 60 mL/min/1.73m2 Final BUN/CREATININE RATIO 10/23/2024 SEE NOTE: (calc) Final Comment: Not Reported: BUN and Creatinine are within reference range. SODIUM 10/23/2024 141 135 - 146 mmol/L Final POTASSIUM 10/23/2024 4.4 3.5 - 5.3 mmol/L Final CHLORIDE 10/23/2024 106 98 - 110 mmol/L Final CARBON DIOXIDE 10/23/2024 24 20 - 32 mmol/L Final ELECTROLYTE BALANCE 10/23/2024 11 7 - 17 mmol/L (calc) Final CALCIUM 10/23/2024 9.2 8.6 - 10.4 mg/dL Final TSH W/REFLEX TO FT4 10/23/2024 1.66 0.40 - 4.50 mIU/L Final Assessment/Plan Problem List Items Addressed This Visit Anxiety - Primary Hypothyroidism Migraine Mixed hyperlipidemia Other Visit Diagnoses Frontal sinus pain Relevant Medications azithromycin (Zithromax) 500 mg tablet Recommend ENT if symptoms persist. Routine followup six months, labs prior. Bree Espinoza MD [1] Allergies Allergen Reactions Amoxicillin-Pot Clavulanate Headache and Nausea/vomiting [2] Current Outpatient Medications on File Prior to Visit Medication Sig Dispense Refill acyclovir (Zovirax) 200 mg capsule Take 1 capsule (200 mg) by mouth 5 times a day. 10 capsule 3 amLODIPine (Norvasc) 5 mg tablet TAKE 1 TABLET BY MOUTH EVERY DAY 30 tablet 5 atorvastatin (Lipitor) 10 mg tablet TAKE 1 TABLET BY MOUTH EVERY DAY 30 tablet 5 buPROPion XL (Wellbutrin XL) 300 mg 24 hr tablet TAKE 1 TABLET (300 MG) BY MOUTH ONCE DAILY. DO NOT CRUSH CHEW OR SPLIT 30 tablet 5 cholecalciferol (Vitamin D-3) 25 MCG (1000 UT) capsule Take 1 capsule (25 mcg) by mouth once daily. cyanocobalamin (Vitamin B-12) 1,000 mcg tablet Take 0.5 tablets (500 mcg) by mouth once daily. fexofenadine (Magaly) 180 mg tablet Take 1 tablet (180 mg) by mouth once daily. fluticasone (Flonase) 50 mcg/actuation nasal spray Administer 1 spray into each nostril once daily. Shake gently. Before first use, prime pump. After use, clean tip and replace cap. levothyroxine (Synthroid, Levoxyl) 88 mcg tablet TAKE 1 TABLET BY MOUTH EVERY DAY 30 tablet 5 magnesium citrate 125 mg capsule Take 1 each by mouth see administration instructions. multivitamin tablet Take 1 tablet by mouth once daily. rizatriptan (Maxalt) 5 mg tablet TAKE 1 TABLET BY MOUTH AT ONSET OF HEADACHE. MAY REPEAT IN 2 HOURS. MAX 30/MG 24 HOURS. 9 tablet 1 sertraline (Zoloft) 100 mg tablet TAKE 1 AND 1/2 TABLETS DAILY 45 tablet 5 No current facility-administered medications on file prior to visit. [3] Patient Active Problem List Diagnosis Anxiety Hypothyroidism Insomnia Migraine Mixed hyperlipidemia Recurrent cold sores documented in this encounter [facility] Work Phone: 04-25-2024 History of Present illness Narrative Follow up Subjective Kia Villanueva is a 58 y.o. female who presents for Follow-up. HPI Follow up starting amlodipine for bp. Did notice some constipation , is managing with otc magnesium. Does not want to switch medicine due to this at this time. States no other problems or concerns. Review of Systems All other systems reviewed and are negative. . Allergies Allergen Reactions Amoxicillin-Pot Clavulanate Headache and Nausea/vomiting Current Outpatient Medications on File Prior to Visit Medication Sig Dispense Refill acyclovir (Zovirax) 200 mg capsule Take 1 capsule (200 mg) by mouth 5 times a day. 10 capsule 3 amLODIPine (Norvasc) 5 mg tablet Take 1 tablet (5 mg) by mouth once daily. 30 tablet 5 atorvastatin (Lipitor) 10 mg tablet TAKE 1 TABLET BY MOUTH EVERY DAY 90 tablet 1 buPROPion XL (Wellbutrin XL) 300 mg 24 hr tablet Take 1 tablet (300 mg) by mouth once daily. DO NOT CRUSH CHEW OR SPLIT 30 tablet 5 cholecalciferol (Vitamin D-3) 25 MCG (1000 UT) capsule Take 1 capsule (25 mcg) by mouth once daily. cyanocobalamin (Vitamin B-12) 1,000 mcg tablet Take 0.5 tablets (500 mcg) by mouth once daily. fexofenadine (Magaly) 180 mg tablet Take 1 tablet (180 mg) by mouth once daily. fluticasone (Flonase) 50 mcg/actuation nasal spray Administer 1 spray into each nostril once daily. Shake gently. Before first use, prime pump. After use, clean tip and replace cap. levothyroxine (Synthroid, Levoxyl) 88 mcg tablet TAKE 1 TABLET BY MOUTH EVERY DAY 30 tablet 5 magnesium citrate 125 mg capsule Take 1 each by mouth see administration instructions. multivitamin tablet Take 1 tablet by mouth once daily. rizatriptan (Maxalt) 5 mg tablet Take 1 tablet (5 mg) by mouth every 2 hours. sertraline (Zoloft) 100 mg tablet TAKE 1 AND 1/2 TABLETS DAILY 45 tablet 5 No current facility-administered medications on file prior to visit. Patient Active Problem List Diagnosis Anxiety Hypothyroidism Insomnia Migraine Mixed hyperlipidemia Recurrent cold sores Objective Visit Vitals BP 138/82 (BP Location: Left arm, Patient Position: Sitting) Pulse 72 Physical Exam Vitals and nursing note reviewed. Constitutional: General: She is not in acute distress. Appearance: Normal appearance. She is not toxic-appearing. HENT: Head: Normocephalic and atraumatic. Cardiovascular: Rate and Rhythm: Normal rate and regular rhythm. Heart sounds: No murmur heard. Pulmonary: Effort: Pulmonary effort is normal. Breath sounds: Normal breath sounds. Musculoskeletal: Comments: Skin: General: Skin is warm and dry. Neurological: General: No focal deficit present. Mental Status: She is alert and oriented to person, place, and time. Psychiatric: Mood and Affect: Mood normal. Behavior: Behavior normal. Assessment/Plan Problem List Items Addressed This Visit Hypothyroidism Relevant Orders TSH with reflex to Free T4 if abnormal Other Visit Diagnoses Primary hypertension - Primary Relevant Orders Basic Metabolic Panel Continue current care plan. Call concerns. Follow up six months, labs prior. Bree Espinoza MD documented in this encounter [facility] Work Phone: 03-12-2024 History of Present illness Narrative Med check; labs Patient presents for periodic surveillance of chronic medical problems. Subjective Kia Villanueva is a 58 y.o. female who presents for Annual Exam. HPI Elevated bp, states has had multiple readings in this range c/w diagnosis of htn, occasionally feels a sinking feeling in her chest, no chest pain, and no other related symptoms Headaches are better after PT, often wakes up with neck pain when she gets them, exercises from pt help, needs fmla paperwork completed, states doing better with that overall Hyperlipidemia, on statom anxiety, stable Hypothryoidism, tsh borderline, t4 normal, has missed a few doses in past few weeks, recommend leave as is with medication Sleeping better Review of Systems All other systems reviewed and are negative. . Allergies Allergen Reactions Amoxicillin-Pot Clavulanate Headache and Nausea/vomiting Current Outpatient Medications on File Prior to Visit Medication Sig Dispense Refill acyclovir (Zovirax) 200 mg capsule Take 1 capsule (200 mg) by mouth 5 times a day. 10 capsule 3 atorvastatin (Lipitor) 10 mg tablet TAKE 1 TABLET BY MOUTH EVERY DAY 90 tablet 1 cholecalciferol (Vitamin D-3) 25 MCG (1000 UT) capsule Take 1 capsule (25 mcg) by mouth once daily. cyanocobalamin (Vitamin B-12) 1,000 mcg tablet Take 0.5 tablets (500 mcg) by mouth once daily. fexofenadine (Magaly) 180 mg tablet Take 1 tablet (180 mg) by mouth once daily. fluticasone (Flonase) 50 mcg/actuation nasal spray Administer 1 spray into each nostril once daily. Shake gently. Before first use, prime pump. After use, clean tip and replace cap. levothyroxine (Synthroid, Levoxyl) 88 mcg tablet TAKE 1 TABLET BY MOUTH EVERY DAY 30 tablet 5 magnesium citrate 125 mg capsule Take 1 each by mouth see administration instructions. multivitamin tablet Take 1 tablet by mouth once daily. rizatriptan (Maxalt) 5 mg tablet Take 1 tablet (5 mg) by mouth every 2 hours. sertraline (Zoloft) 100 mg tablet TAKE 1 AND 1/2 TABLETS DAILY 45 tablet 5 [DISCONTINUED] buPROPion XL (Wellbutrin XL) 300 mg 24 hr tablet TAKE 1 TABLET BY MOUTH ONCE DAILY. DO NOT CRUSH, CHEW, OR SPLIT. 30 tablet 5 No current facility-administered medications on file prior to visit. Patient Active Problem List Diagnosis Anxiety Hypothyroidism Insomnia Migraine Mixed hyperlipidemia Recurrent cold sores Objective Visit Vitals BP (!) 150/98 (BP Location: Left arm, Patient Position: Sitting) Pulse 80 Physical Exam Vitals and nursing note reviewed. Constitutional: General: She is not in acute distress. Appearance: Normal appearance. She is not toxic-appearing. HENT: Head: Normocephalic and atraumatic. Cardiovascular: Rate and Rhythm: Normal rate and regular rhythm. Heart sounds: No murmur heard. Pulmonary: Effort: Pulmonary effort is normal. Breath sounds: Normal breath sounds. Musculoskeletal: Cervical back: Neck supple. No rigidity. Comments: Skin: General: Skin is warm and dry. Neurological: General: No focal deficit present. Mental Status: She is alert and oriented to person, place, and time. Psychiatric: Mood and Affect: Mood normal. Behavior: Behavior normal. Lab on 03/11/2024 Component Date Value Ref Range Status Glucose 03/11/2024 97 74 - 99 mg/dL Final Sodium 03/11/2024 141 136 - 145 mmol/L Final Potassium 03/11/2024 4.3 3.5 - 5.3 mmol/L Final Chloride 03/11/2024 106 98 - 107 mmol/L Final Bicarbonate 03/11/2024 28 21 - 32 mmol/L Final Anion Gap 03/11/2024 11 10 - 20 mmol/L Final Urea Nitrogen 03/11/2024 20 6 - 23 mg/dL Final Creatinine 03/11/2024 0.77 0.50 - 1.05 mg/dL Final eGFR 03/11/2024 89 >60 mL/min/1.73m*2 Final Calculations of estimated GFR are performed using the 2020 CKD-EPI Study Refit equation without the race variable for the IDMS-Traceable creatinine methods. https://jasn.asnjournals.org/co ntent/early//ASN.2020 269598 Calcium 03/11/2024 9.3 8.6 - 10.3 mg/dL Final Albumin 03/11/2024 4.3 3.4 - 5.0 g/dL Final Alkaline Phosphatase 03/11/2024 74 33 - 110 U/L Final Total Protein 03/11/2024 6.7 6.4 - 8.2 g/dL Final AST 03/11/2024 16 9 - 39 U/L Final Bilirubin, Total 03/11/2024 0.6 0.0 - 1.2 mg/dL Final ALT 03/11/2024 18 7 - 45 U/L Final Patients treated with Sulfasalazine may generate falsely decreased results for ALT. WBC 03/11/2024 4.5 4.4 - 11.3 x10*3/uL Final nRBC 03/11/2024 0.0 0.0 - 0.0 /100 WBCs Final RBC 03/11/2024 4.28 4.00 - 5.20 x10*6/uL Final Hemoglobin 03/11/2024 13.5 12.0 - 16.0 g/dL Final Hematocrit 03/11/2024 40.6 36.0 - 46.0 % Final MCV 03/11/2024 95 80 - 100 fL Final MCH 03/11/2024 31.5 26.0 - 34.0 pg Final MCHC 03/11/2024 33.3 32.0 - 36.0 g/dL Final RDW 03/11/2024 12.5 11.5 - 14.5 % Final Platelets 03/11/2024 275 150 - 450 x10*3/uL Final Cholesterol 03/11/2024 180 0 - 199 mg/dL Final Age Desirable Borderline High High 0-19 Y 0 - 169 170 - 199 >/= 200 20-24 Y 0 - 189 190 - 224 >/= 225 >24 Y 0 - 199 200 - 239 >/= 240 All ranges are based on fasting samples. Specific therapeutic targets will vary based on patient-specific cardiac risk. Pediatric guidelines reference:Pediatrics 2011, 128(S5).Adult guidelines reference: NCEP ATPIII Guidelines,ELIU 2001, 258:2486-97 Venipuncture immediately after or during the administration of Metamizole may lead to falsely low results. Testing should be performed immediately prior to Metamizole dosing. HDL-Cholesterol 03/11/2024 66.0 mg/dL Final Age Very Low Low Normal High 0-19 Y < 35 < 40 40-45 ---- 20-24 Y ---- < 40 >45 ---- >24 Y ---- < 40 40-60 >60 Cholesterol/HDL Ratio 03/11/2024 2.7 Final Ref Values Desirable < 3.4 High Risk > 5.0 LDL Calculated 03/11/2024 82 <=99 mg/dL Final Near Borderline AGE Desirable Optimal High High Very High 0-19 Y 0 - 109 --- 110-129 >/= 130 ---- 20-24 Y 0 - 119 --- 120-159 >/= 160 ---- >24 Y 0 - 99 100-129 130-159 160-189 >/=190 VLDL 03/11/2024 32 0 - 40 mg/dL Final Triglycerides 03/11/2024 158 (H) 0 - 149 mg/dL Final Age Desirable Borderline High High Very High 0 D-90 D 19 - 174 ---- ---- ---- 91 D- 9 Y 0 - 74 75 - 99 >/= 100 ---- 10-19 Y 0 - 89 90 - 129 >/= 130 ---- 20-24 Y 0 - 114 115 - 149 >/= 150 ---- >24 Y 0 - 149 150 - 199 200- 499 >/= 500 Venipuncture immediately after or during the administration of Metamizole may lead to falsely low results. Testing should be performed immediately prior to Metamizole dosing. Non HDL Cholesterol 03/11/2024 114 0 - 149 mg/dL Final Age Desirable Borderline High High Very High 0-19 Y 0 - 119 120 - 144 >/= 145 >/= 160 20-24 Y 0 - 149 150 - 189 >/= 190 ---- >24 Y 30 mg/dL above LDL Cholesterol goal Thyroid Stimulating Hormone 03/11/2024 4.44 (H) 0.44 - 3.98 mIU/L Final Thyroxine, Free 03/11/2024 1.08 0.61 - 1.12 ng/dL Final Assessment/Plan Problem List Items Addressed This Visit Anxiety Hypothyroidism Insomnia Migraine Mixed hyperlipidemia - Primary Other Visit Diagnoses Tension headache Primary hypertension Relevant Medications amLODIPine (Norvasc) 5 mg tablet Influenza vaccination declined Add amlodipine for bp. Side effects discussed. Followup 3-4 weeks, call concerns. Bree Espinoza MD documented in this encounter [facility] Work Phone: 09-05-2023 History of Present illness Narrative Patient presents for periodic surveillance of chronic medical problems. Subjective Kia Villanueva is a 58 y.o. female who presents for Follow-up (6 mos) and Insomnia. Insomnia Insomnia, difficulty falling and staying asleep since fall. Has had a lot going on with [employer], work is stressful. Tried Benadryl. Tried melatonin. Hydroxyzine made her too tired the next day . Tries to follow the sleep hygiene recommendations. Discussed prescription sleeping meds, risks, wants to avoid for now. Not getting regular exercise, reviewed benefits including with sleep, will try that, states has treadmill. Hypothyroidism, dose change this fall, due for follow up tsh. Anxiety, stable on current regimen Due for mammogram, gets at [place], with machine brush maker care, plans to set that up as well. Review of Systems Psychiatric/Behavioral: The patient has insomnia. All other systems reviewed and are negative. . Objective Visit Vitals BP 138/88 Pulse 83 Physical Exam Vitals and nursing note reviewed. Constitutional: General: She is not in acute distress. Appearance: Normal appearance. She is not toxic-appearing. HENT: Head: Normocephalic and atraumatic. Cardiovascular: Rate and Rhythm: Normal rate and regular rhythm. Heart sounds: No murmur heard. Pulmonary: Effort: Pulmonary effort is normal. Breath sounds: Normal breath sounds. Musculoskeletal: Cervical back: Neck supple. No rigidity. Comments: Skin: General: Skin is warm and dry. Neurological: General: No focal deficit present. Mental Status: She is alert and oriented to person, place, and time. Psychiatric: Mood and Affect: Mood normal. Behavior: Behavior normal. Assessment/Plan Problem List Items Addressed This Visit Anxiety Hypothyroidism Relevant Orders Comprehensive Metabolic Panel CBC Lipid Panel TSH with reflex to Free T4 if abnormal Insomnia Other Visit Diagnoses Screening mammogram for breast cancer - Primary Relevant Orders BI mammo bilateral screening tomosynthesis (Completed) Bree Espinoza MD documented in this encounter [facility] Work Phone: 09-05-2023 Instructions Bree Espinoza MD - 09/05/2023 8:00 AM EST TSH today, assuming normal routine follow up six months, labs prior. Call concerns. documented in this encounter [facility] Work Phone: 03-07-2023 History of Present illness Narrative Pt is here today for a 1 month follow up. C/O ringing in both ears. Patient presents for periodic surveillance of chronic medical problems. Subjective Kia Villanueva is a 57 y.o. female who presents for No chief complaint on file.. HPI Ringing in ears for several years. Doesn't notice hearing loss, gets hearing tested through work. States feels like her frontal sinuses have been congested forever, if she takes sudafed for a few days it helps but affects bp. Has tried flonase without much help. Anxiety , went to counselor doesn't feel like a good fit, going to try a different. Feels increasing the wellbutrin is helping her anxiety. Insomnia, still having difficulty sleeping. Has tried atarax in the past, made her sleep too long. Discussed benadryl and she will try that. Discussed regular exercise. Hypothyroidism, interested in having her tsh checked Review of Systems All other systems reviewed and are negative. . Objective Visit Vitals BP 128/80 Pulse 79 Physical Exam Vitals and nursing note reviewed. Constitutional: General: She is not in acute distress. Appearance: Normal appearance. She is not toxic-appearing. HENT: Head: Normocephalic and atraumatic. Cardiovascular: Rate and Rhythm: Normal rate and regular rhythm. Heart sounds: No murmur heard. Pulmonary: Effort: Pulmonary effort is normal. Breath sounds: Normal breath sounds. Abdominal: Palpations: Abdomen is soft. Musculoskeletal: Cervical back: Neck supple. No rigidity. Comments: Normal gait Skin: General: Skin is warm and dry. Neurological: General: No focal deficit present. Mental Status: She is alert and oriented to person, place, and time. Psychiatric: Mood and Affect: Mood normal. Behavior: Behavior normal. Assessment/Plan Problem List Items Addressed This Visit Anxiety Hypothyroidism Relevant Orders Follow Up In Primary Care - Established TSH with reflex to Free T4 if abnormal Other Visit Diagnoses Nasal congestion - Primary Relevant Orders Referral to ENT Tinnitus of both ears Relevant Orders Referral to ENT Bree Espinoaz MD documented in this encounter [facility] Work Phone: 02-01-2023 History of Present illness Narrative Here for follow up; needs FMLA form filled out for when she has migraines Patient presents for periodic surveillance of chronic medical problems. Subjective Kia Villanueva is a 57 y.o. female who presents for Follow-up. HPI Anxiety, doing better on the wellbutrin, tolerating fine, interested in trying a higher dose, has counseling lined up Cervicogenic headaches, has started physical therapy, estimates she is missing some work at least part of a day every two weeks and needs FMLA paperwork completed Elevated bp, will monitor Review of Systems All other systems reviewed and are negative. . Objective Visit Vitals BP 138/80 Pulse 84 Physical Exam Vitals reviewed. Constitutional: Appearance: Normal appearance. Pulmonary: Effort: Pulmonary effort is normal. Neurological: General: No focal deficit present. Mental Status: She is alert. Psychiatric: Mood and Affect: Mood normal. Behavior: Behavior normal. Assessment/Plan Problem List Items Addressed This Visit Anxiety - Primary Relevant Medications buPROPion XL (Wellbutrin XL) 300 mg 24 hr tablet Other Relevant Orders Follow Up In Primary Care - Established Migraine Other Visit Diagnoses Cervicogenic headache Elevated BP without diagnosis of hypertension Reactive depression Relevant Medications buPROPion XL (Wellbutrin XL) 300 mg 24 hr tablet Bree Espinoza MD documented in this encounter [facility] Work Phone: 12-30-2022 History of Present illness Narrative Establish care; transferring from [facility]; has issues with [employer] and has some ringing in her ears Subjective Kia Villanueva is a 57 y.o. female who presents for Establish Care. HPI Reviewed problem list. Anxiety, states is really struggling right now . Her job is stressful, and she sometimes lies in bed in the morning until it makes her late because she doesn't want to get up and go. On sertraline, used to see a counselor before she moved her 8 years ago. Doesn't enjoy things she would normally enjoy. Notes feeling paralyzed at times. She states has difficulty concentrating, and probably has some ADD component, has learned how to cope with that and work with that ( listening to music while she works). She states her mother has metastatic lung cancer, she and her brother have different ideas about what she should do, etc. Has headaches, wakes up with them at time. Has chronic neck pain and has been to massage. History of migraines. Neck is tight and carries tension in her neck. Review of Systems All other systems reviewed and are negative. . Objective Visit Vitals BP 138/80 (BP Location: Left arm, Patient Position: Sitting) Pulse 72 Physical Exam Vitals and nursing note reviewed. Constitutional: General: She is not in acute distress. Appearance: Normal appearance. She is not toxic-appearing. HENT: Head: Normocephalic and atraumatic. Neck: Comments: Upper shoulders tight, left greater than right, no midline tenderness Cardiovascular: Heart sounds: No murmur heard. Pulmonary: Effort: Pulmonary effort is normal. Musculoskeletal: Cervical back: Normal range of motion and neck supple. No rigidity. Comments: Normal gait Skin: General: Skin is warm and dry. Neurological: General: No focal deficit present. Mental Status: She is alert and oriented to person, place, and time. Psychiatric: Mood and Affect: Mood normal. Behavior: Behavior normal. Assessment/Plan Problem List Items Addressed This Visit Anxiety Relevant Orders Referral to Psychology Migraine - Primary Relevant Orders Follow Up In Primary Care - Established Other Visit Diagnoses Neck pain Relevant Orders Referral to Physical Therapy Cervicogenic headache Bree Espinoza MD documented in this encounter [facility] Work Phone: 12-30-2022 Instructions Bree Espinoza MD - 12/30/2022 10:20 AM EDT Physical therapy for neck pain and cervicogenic headaches. Counseling for stress/anxiety/depressive symptoms. Add wellbutrin xl 150 mg daily, no history of eating disorder or seizures. Call concerns, follow up one month. documented in this encounter [facility] Work Phone: 07-29-2022 History of Present illness Narrative [facility], just had done last Monday.DEXA: has not gotten this startedHLD: Atorvastatin,Hypothyroid:Pneumo 20, and covid booster yesterday. [facility] Work Phone: 07-29-2022 History of Present illness Narrative Radiology Service Progress Note PATIENT NAME: Kia Villanueva DATE OF SERVICE: July 29, 2022 TIME: 8:09 AM PATIENT IDENTITY VERIFICATION COMPLETED USING TWO (2) IDENTIFIERS: Name and Date of confirmed by patient verbally. FALL SCREENING: Has the patient had 2 falls in the last year or 1 fall with injury or currently using an Ambulatory Assistive Device (Walker, Cane, Wheelchair, Crutches, etc.)? No PATIENT GENDER DATA: Female. status: : No status: NO. 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 Kia is a 56 year old who presents for an annual gynecologic exam with complaints, spotting after intercourse . Reports she had similar symptoms last year, had a polyp, and had a D&C. Denies any other bleeding outside of this episode- thinks bleeding was more related to intercourse. Postmenopausal: Yes HRT use: No. Last Pap: 01/25/2021 normal HPV: 01/22/2021 negative History of abnormal pap: No Last mammogram: 2020 normal History of abnormal mammogram: No Sexually active: Yes History of STDS: None Patient concerns for STD exposure: No. Pain with intercourse: occasionally Postcoital bleeding: Yes, on episode on 05/21 Hot flashes: Yes Night sweats: No Vaginal dryness: Yes Exercise: walks Diet: balanced OB History T2 L2 SAB0 IAB0 Ectopic0 Multiple0 Live Births0 Comment: 2 boys Dependency Director History LMP: 10/04/2016, Perimenopausal Age at Menarche: Age at First : Age at Menopause: Dependency Director History Comments: Sexual Activity: Yes; Male Contraception: Tubal Ligation PAST MEDICAL HISTORY Diagnosis Date Anxiety Hyperlipemia Hypothyroid PAST SURGICAL HISTORY Procedure Laterality Date ANKLE SURGERY HX Left 01/17/2018 plates and screws placed , LOW CERV, IN-HOSP CAR x2 D+C 06/03/2021 HYSTEROSCOPY- benign [facility] TUBAL LIGATION HX FAMILY HISTORY Problem Relation Age of Onset Breast Cancer Mother Hypertension Mother Hyperlipidemia Mother Hyperlipidemia Father Hypertension Brother Breast Cancer Maternal Grandmother Hypertension Maternal Grandfather Diabetes Paternal Grandmother SOCIAL HISTORY Social History Tobacco Use Smoking status: Former Smokeless tobacco: Never Tobacco comments: 6 months in college Vaping Use Vaping Use: Never used Substance Use Topics Alcohol use: Yes Comment: social Drug use: No REVIEW OF SYSTEMS Abdomen: No abdominal pain, nausea, vomiting, diarrhea, or constipation. No bloating, early satiety, indigestion, or increased flatulence. Bladder: No dysuria, gross hematuria, urinary frequency, urinary urgency, or incontinence Breast: No breast lumps, nipple d/c, overlying skin changes, redness or skin retraction Allergies and current medication updated:Yes EXAM: BP 120/78 Ht 5' 3.5 (1.61m) Wt 154 lb (69.9kg) LMP 10/04/2016 BMI 26.85 kg/(m^2). GENERAL: pleasant, female in no apparent distress HEENT: Normocephalic, atraumatic, mucus membranes moist, and no lesions NECK: Supple, full range of motion, no adenopathy, and thyroid normal DERMATOLOGY: Normal, without lesions, non-icteric, and non-hirsute BREAST: soft, non-tender, symmetric, no dominant mass, normal nipple-areolar complex, no lymphadenopathy, and no nipple discharge ABDOMEN: soft, non-tender, and no masses PELVIC: external genitalia normal, normal Bartholin's glands, urethra, [place]'s glands, no vulvar lesions, no cervical lesions, good vaginal support, physiologic discharge present, normal appearing perineal body and perianal region BIMANUAL: uterus normal size, shape and consistency, no adnexal masses, and non-tender RECTOVAGINAL: deferred. NEURO: alert and oriented x3,exam grossly non-focal EXTREMITIES: normal ASSESSMENT/PLAN: 1) Health maintenance: Pap/HPV up to date. Mammogram ordered Nutrition, exercise and routine health maintenance exams reviewed. Calcium/Vitamin D supplementation information provided. Colon cancer screening: up to date with screening 2) Follow up one year or sooner as needed 3) pelvic us ordered Hanny Hooks MD documented in this encounter [facility] 01-18-2022 History of Present illness Narrative She is here today for wellness exam. She has been doing well despite having a wrist fracture. She fell at home x 2 days ago. Was seen in urgent care yesterday. She feels she is in good health. She lost 15 lbs since October due to dietary changes. She is on Nutrisystem. Exercising 2-3 days a week, 60-90 minutes of exercise per session. Immunizations-are up to date. 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 Due for mammogram, does those in [place]. Reviewed labs.Migraines: Has chronic headaches, was on topiramate but it made her fuzzy. She uses Maxalt PRN.Anxiety: Sertraline working good for her. Increased to 200 mg but is now backing it back down to 150 mg. Her father last fall. Mother is in assisted living.Insomnia-doing okay, has tried meds in the past, but they didn't work out well for her. Not taking anything currently -[facility] Work Phone: 01-18-2022 Chief complaint Narrative - Reported NEW) Referral from for further evaluation and treatment as she is 8 days status post closed fracture of the right distal radius of the wrist sustained on 01/18/2022 after a fall. XR series of the right wrist performed on 01/19/2022. She overall pain has reduced, however she still has intermittent mild to moderate pain that she manages with OTC Tylenol as she doesn t like taking the Percocet. She has been compliant keeping her short-arm splint dry and well maintained, however its starting to loosening due to swelling of the wrist and thumb reducing. She states after the injury she had swelling of the wrist and thumb with painful palpation over the distal radius of the wrist. [facility] Work Phone: 01-18-2022 History of Present illness Narrative Patient is here today for evaluation of her right wrist injury that occurred on 01/18/2022. She is a 56-year-old female who fell on her porch and believes she threw her arm up over her head and likely hit her wrist on the porch post. She did strike her head at this time denies loss of consciousness. She denies any concussion symptoms. She reported to the urgent care where she was told she has a fracture in the wrist and a splint was applied. She rates her pain about a 5/10 and utilizing Tylenol for pain relief. She has been compliant with nonweightbearing status. Denies any problems with this wrist prior to this. She locates the pain to the radial aspect of the wrist. [facility] Work Phone: 01-14-2022 History of Present illness Narrative Patient is here today for follow-up of her right distal radius fracture on 01/14/2022. She has been coming out of the brace for the past week and doing light weightbearing activities working on range of motion of the wrist. She still has some pain that shoots up the middle of the dorsum of the wrist. She has no major concerns at this time no new injuries. [facility] Work Phone: 01-14-2022 History of Present illness Narrative Patient is here today for follow-up of her right wrist fracture on 01/14/2022. There is some concern at last appointment for DRUJ disruption with clicking with pronation supination. She states that this has been decreasing the pain is getting better she has been working on range of motion of the wrist however it is been tough and she is seeing slow progress. She is not utilizing the brace doing most activities as tolerated. She has been avoiding heavy lifting at this time. [facility] Work Phone: Evaluation note Diagnosis Encounter for gynecological examination (general) (routine) without abnormal findings- Primary Encounter for screening mammogram for malignant neoplasm of breast Other screening mammogram PCB (post coital bleeding) Postcoital bleeding PMB (postmenopausal bleeding) Postmenopausal bleeding [facility] PCB (post coital bleeding)- Primary Postcoital bleeding [facility] Diagnosis PCB (post coital bleeding) Postcoital bleeding PMB (postmenopausal bleeding) Postmenopausal bleeding [facility] Diagnosis Migraine without aura and without status migrainosus, not intractable- Primary Neck pain Cervicalgia Cervicogenic headache Headache Anxiety Anxiety state, unspecified Reactive depression documented in this encounter [facility] Work Phone: Evaluation note* Diagnosis Anxiety- Primary Anxiety state, unspecified Migraine without aura and without status migrainosus, not intractable Cervicogenic headache Headache Elevated BP without diagnosis of hypertension Reactive depression documented in this encounter [facility] Work Phone: Evaluation note* Diagnosis Nasal congestion- Primary Other diseases of nasal cavity and sinuses Anxiety Anxiety state, unspecified Tinnitus of both ears Unspecified tinnitus Acquired hypothyroidism Unspecified hypothyroidism documented in this encounter [facility] Work Phone: Evaluation note* Diagnosis Encounter for screening mammogram for malignant neoplasm of breast Other screening mammogram [facility] Diagnosis Screening mammogram for breast cancer- Primary Acquired hypothyroidism Unspecified hypothyroidism Anxiety Anxiety state, unspecified Primary insomnia Persistent disorder of initiating or maintaining sleep Screening mammogram for breast cancer documented in this encounter [facility] Work Phone: Evaluation note* Diagnosis Screening mammogram for breast cancer documented in this encounter [facility] Work Phone: Evaluation note* Diagnosis Primary hypertension- Primary Unspecified essential hypertension Acquired hypothyroidism Unspecified hypothyroidism documented in this encounter [facility] Work Phone: Evaluation note* Diagnosis Mixed hyperlipidemia- Primary Acquired hypothyroidism Unspecified hypothyroidism Tension headache Primary hypertension Unspecified essential hypertension Primary insomnia Persistent disorder of initiating or maintaining sleep Other migraine without status migrainosus, not intractable Anxiety Anxiety state, unspecified Influenza vaccination declined documented in this encounter [facility] Work Phone: Evaluation note* Diagnosis Anxiety- Primary Anxiety state, unspecified Acquired hypothyroidism Unspecified hypothyroidism Other migraine without status migrainosus, not intractable Mixed hyperlipidemia Frontal sinus pain documented in this encounter [facility] Work Phone: Evaluation note* Diagnosis Breast screening- Primary Breast screening, unspecified [facility] Diagnosis Acute non-recurrent maxillary sinusitis- Primary documented in this encounter [facility] Work Phone: Evaluation note* Diagnosis Need for influenza vaccination- Primary Need for prophylactic vaccination and inoculation against influenza Acquired hypothyroidism Unspecified hypothyroidism Mixed hyperlipidemia Primary hypertension Unspecified essential hypertension Anxiety Anxiety state, unspecified Subacute cough Elevated glucose Other abnormal glucose documented in this encounter [facility] Work Phone: History of Present illness Narrative* She is here today for 6 mos follow up [id number] goal, hyperlipidemia-improving, on Keto has lost weight. Hypothyroid-stable. Insomnia-doxepin works well. Last mammogram UTD at [facility]. Anxiety-doing well on sertraline wishes to continue and does not want to change doses. * New issues: she has been having constipation. She is taking docusate. She is on a ketogenic diet aswe discussed replacing electrolytes. She can get some magnesium citrate to help with her current constipation. In many vitamin with electrolytes or electrolyte replacement including magnesium to helpon her restricted diet. -[facility] Work Phone: History of Present illness Narrative* She is here today for 6 mos follow up [id number] goal, hyperlipidemia-improving, on Keto has lost weight. Hypothyroid-stable. Insomnia-doxepin works well. Last mammogram UTD at [facility]. Anxiety-doing well on sertraline wishes to continue and does not want to change doses. * New issues: she has been having constipation. She is taking docusate. She is on a ketogenic diet aswe discussed replacing electrolytes. She can get some magnesium citrate to help with her current constipation. In many vitamin with electrolytes or electrolyte replacement including magnesium to helpon her restricted diet. [facility] Work Phone: History of Present illness Narrative* She is here today for 6 mos follow up [id number] goal, hyperlipidemia-improving Hypothyroid-stable. Insomnia-doxepin not working as well. Migraines-increased recently, thinks due to stress at work. Last mammogram UTD at [place]. Anxiety-doing well on sertraline wishes to continue and does not want to change doses. * She was having constipation, magnesium has helped. * No new concerns * WBC was slightly low, will recheck with labs in 6 mos. She is to report any excessive fatigue, unexplained weight loss, night sweats, etc. [facility] Work Phone: History of Present illness Narrative* Kia returns for follow up and med refill. * topamax, decrease. * and wants to stay on sertraline 200 mg daily [facility] DO Work Phone: History of Present illness Narrative* Kia returns for follow up and med refill. * Migraines: She would like to be taken off the Topiramate. She reports that she started having side effects from the medicine shortly after taking the medicine so she would like to stop taking it. Shefeels it is making her forget things, and causing her to sometimes find the right word, when talking. My family and my co-workers have noticed it. Believes the reason she was having more migraines was due to her hormonal changes from menopause but now she is through menopause she would like to try it without anything to see if her headaches are gone now. She does still use Rizatriptan for her severe headaches and would like a refill. * Depression: She is also requesting to stay on the sertraline 200 mg daily for her depression. States, I've been on this dose for awhile and they weren't going to refill it because they were afraid Iwas still taking the Doxepin which I am not. It is really helping and I do not want to decrease my dose. Kia reports some recent deaths in the family but her medicine is helping. She denies any suicidal/homicidal ideations today. * Hypothyroid: Currently on Levothyroxine. Stable. Due for blood work at next visit. * Recurrent cold sores: Would like a refill on her Acyclovir. Does not currently have any cold sores. [facility] DO Work Phone: History of Present illness Narrative* Kia returns for chronic care and med refills. * She has concerns today regarding increase in headaches. she feels this is due to her stopping her allergy and Flonase. She reports that her headaches are almost everyday and the pain is mostly behindher left eye and the left side of her head. She will take her Rizatriptan for her severe migraines which helps. * Hyperlipidemia: She is taking her Statin. She is due for lipid panel. Denies any new muscle aches/pains. * Hypothyroid: taking levothyroxine at current dose and doing well. Last TSH was normal range. * Mammogram: [facility], just had done last Monday. * DEXA: has not gotten this started * Immunizations: She reports she received her Pneumonia and COVID booster at the pharmacy. [facility] DO Work Phone: History of Present illness Narrative* Introduced ther- ex for periscapular strengthening followed by manual treatment. Good response and tolerance to session, noting significant reduction in tightness and reports of pain following treatment. HEP was reviewed = patient with good understanding thus far. * Response to treatment: decreased pain, improved joint mobility/ROM, improved tissue mobility, improved posture and improved knowledge and understanding of condition. [facility] Work Phone: History of Present illness Narrative* Patient confirmed name and date of this session. * She feels pulling in L side of neck with UBE which she did not feel last session. Added multiple activities for strengthening and stretching of cervicothoracic/ periscap regions. Myofascial restrictions felt in L MT and UT which reduced after manual therapy. Stretching following manual with improved s/s after session. [facility] Work Phone: history of Present illness Narrative* Theratrac traction unit after manual treatment with good results. Patient noted reduced pain in neck and less radicular symptoms post-treatment. Deferred some of the ex's at patient request since increase in pain -> will resume per tolerance. Patient felt DN treatment last session helped reduce pain and tightness. * Response to treatment: decreased pain, improved joint mobility/ROM, improved tissue mobility and improved knowledge and understanding of condition. [facility] Work Phone: history of Present illness Narrative* Able to resume ther-ex this date. Also added scapular strengthening/stabilization ex's with good response and tolerance. Reduced pain and tightness following manual treatment and patient indicated radicular symptoms (numbness/tingling down LUE) abolished post-treatment. * Response to treatment: decreased pain, improved joint mobility/ROM, improved tissue mobility, improved posture and improved knowledge and understanding of condition. [facility] Work Phone: history of Present illness Narrative* Better posture awareness when seated and when stg. Discussed work ergonomics with her computer and chair positioning to help manage symptoms. Deferred traction treatment with emphasis on ther-ex and manual treatment. Noted reduced tightness along cerv paraspinals and into left UT area. * Response to treatment: decreased pain, improved flexibility, improved tissue mobility, improved posture and improved knowledge and understanding of condition. [facility] Work Phone: History of Present illness NarrativePatient seen prior to DN for ther-ex and manual treatment to improve tissue mobility, ROM, and postural strength. Good response and tolerance to treatment.[facility] Work Phone: history of Present illness Narrative* More tightness in left UT and paraspinals today during manual treatment -> good response to manual/STW, noting reduced tightness and better cervical mobility after session. She'll resume her current HEP. * Response to treatment: decreased pain, improved tissue mobility, improved posture and improved knowledge and understanding of condition. [facility] Work Phone: History of Present illness Narrative* Patient confirmed name and date of this session. Pt late to session. * Focused on manual therapy d/t time constraints with myofascial restrictions most significant in B UT (L>R). Pt reports dec pain and improved mobility after session. * Response to treatment: improved tissue mobility. [facility] Work Phone: Reason for referral (narrative)* Diagnostic Procedure Only (Routine) - Authorized Specialty Diagnoses / Procedures Referred By Ted burnett Referred To Contact [facility] Diagnoses PCB (post coital bleeding) PMB (postmenopausal bleeding) Procedures PELVIC US WHI US PELVIC NONOBSTETRIC REAL-TIME IMAGE COMPLETE Hanny Locke MD [address] [place] [address] [facility] [address] [place] [id number] Referral ID Status Reason Start Date Expiration Date Visits Requested Visits Authorized [id number] Authorized Auto-Generat ed Referral 2 05/30/2023 1 1 * Diagnostic Procedure Only (Routine) - Authorized Specialty Diagnoses / Procedures Referred By Ted burnett Referred To Contact [facility] Diagnoses Encounter for screening mammogram for malignant neoplasm of breast Procedures JARETT SCREENING W OLE SCREENING DIGITAL BREAST TOMOSYNTHESIS BI SCREENING MAMMOGRAPHY BI 2-VIEW BREAST INC CAD Hanny Locke MD [address] [place] [address] [facility] [address] [place] [id number] Referral ID Status Reason Start Date Expiration Date Visits Requested Visits Authorized [id number] Authorized Auto-Generat ed Referral 2 06/29/2023 1 1 [facility] ([facility] Consultation (Routine) - Authorized Specialty Diagnoses / Procedures Referred By Contac t Referred To Contact Psychology Diagnoses Anxiety Procedures [place] OFFICE/OUTPATIENT [facility] MDM 60-74 MINUTES Bree Espinoza MD [address] [facility] [place] [address] Referral ID Status Reason Start Date Expiration Date Visits Requested Visits Authorized [id number] Authorized Specialty Services Required 12/30/2022 06/28/2023 1 1 * Consultation (Routine) - Closed Specialty Diagnoses / Procedures Referred By Contac t Referred To Contact Physical Therapy Diagnoses Neck pain Procedures [place] OFFICE/OUTPATIENT [facility] 60-74 MINUTES Bree Espinoza MD [address] [place] [address] Referral ID Status Reason Start Date Expiration Date V isits Requested Visits Authorized [id number] Closed Specialty Services Required 12/30/2022 06/28/2023 1 1 * Consultation (Routine) - Authorized Specialty Diagnoses / Procedures Referred By Contac t Referred To Contact Primary Care Diagnoses Migraine without aura and without status migrainosus, not intractable Procedures Follow Up In Primary Care - Established Bree Espinoza MD [address] [place] [address] Referral ID Status Reason Start Date Expiration Date V isits Requested Visits Authorized [id number] Authorized 12/30/2022 06/28/2023 1 1 [facility] Work Phone: Reason for referral (narrative)* Consultation (Routine) - Authorized Specialty Diagnoses / Procedures Referred By Contac t Referred To Contact Primary Care Diagnoses Anxiety Procedures Follow Up In Primary Care - Established Bree Espinoza MD [address] [place] [address] Referral ID Status Reason Start Date Expiration Date V isits Requested Visits Authorized [id number] Authorized 02/01/2023 07/31/2023 1 1 [facility] Work Phone: Requyg for referral (narrative)* Consultation (Routine) - Authorized Specialty Diagnoses / Procedures Referred By Ted t Referred To Contact Primary Care Diagnoses Acquired hypothyroidism Procedures Follow Up In Primary Care - Established Bree Espinoza MD [address] [place] [address] Referral ID Status Reason Start Date Expiration Date V isits Requested Visits Authorized [id number] Authorized 03/07/2023 09/03/2023 1 1 * Consultation (Routine) - Authorized Specialty Diagnoses / Procedures Referred By Ted burnett Referred To Contact Otolaryngology Diagnoses Nasal congestion Tinnitus of both ears Procedures [place] OFFICE/OUTPATIENT [facility] MDM 60-74 MINUTES Bree Espinoza MD [address] [place] [address] Referral ID Status Reason Start Date Expiration Date Visits Requested Visits Authorized [id number] Authorized Specialty Services Required 03/07/2023 09/03/2023 1 1 [facility] Work Phone: Rendgl for referral (narrative)* Diagnostic Procedure Only (Routine) - Closed Specialty Diagnoses / Procedures Referred By Ted burnett Referred To Contact [facility] Diagnoses Encounter for screening mammogram for malignant neoplasm of breast Procedures JARETT SCREENING W OLE SCREENING DIGITAL BREAST TOMOSYNTHESIS BI SCREENING MAMMOGRAPHY BI 2-VIEW BREAST INC Hanny Kwok MD [address] [place] [address] [facility] [address] [place] [address] Referral ID Status Reason Start Date Expiration Date V isits Requested Visits Authorized [id number] Closed Auto-Generate d Referral 05/30/2022 06/29/2023 1 1 [facility] for visit Narrative* Diagnostic Procedure Only (Routine) - Closed Specialty Diagnoses / Procedures Referred By Ted t Referred To Contact [facility] Diagnoses PCB (post coital bleeding) PMB (postmenopausal bleeding) Procedures PELVIC US WHI US PELVIC NONOBSTETRIC REAL-TIME IMAGE COMPLETE Hanny Locke MD [address] [place] [address] [address] Referral ID Status Reason Start Date Expiration Date V isits Requested Visits Authorized [id number] Closed Auto-Generate d Referral 05/30/2022 05/30/2023 1 1 [facility] for visit Narrative* Consultation (Routine) - Authorized Specialty Diagnoses / Procedures Referred By Ted burnett Referred To Contact Primary Care Diagnoses Anxiety Procedures Follow Up In Primary Care - Established Bree Espinoza MD [facility] Medical Office [place] [phone] Referral ID Status Reason Start Date Expiration Date V isits Requested Visits Authorized [id number] Authorized 02/01/2023 07/31/2023 1 1 [facility] Work Phone: Reason for visit Narrative* Diagnostic Procedure Only (Routine) - Closed Specialty Diagnoses / Procedures Referred By Ted burnett Referred To Contact [facility] Diagnoses Encounter for screening mammogram for malignant neoplasm of breast Procedures JARETT SCREENING W OLE SCREENING DIGITAL BREAST TOMOSYNTHESIS BI SCREENING MAMMOGRAPHY BI 2-VIEW BREAST INC CAD Hanny Locke MD [address] [place] [address] [facility] [address] [facility] [place] [address] Referral ID Status Reason Start Date Expiration Date V isits Requested Visits Authorized [id number] Closed Auto-Generate d Referral 05/30/2022 06/29/2023 1 1 [facility] Summary Purpose Family History No Family History Records FoundUnknown Family Member Name Dates Details Family history of malignant neoplasm of breast: Mother, Grandparent(V16.3, Z80.3) Status:Active Family history of congenital heart disease: Grandparent(V19.5, Z82.79) Status:Active Family history of type 2 linsey betes mellitus: Grandparent(V18.0, Z83.3) Status:Active Family history of hyperlipid emia: Mother, Father(V18.19, Z83.438) Status:Active Family history of lung cance r: Mother(V16.1, Z80.1) Status:Active Family history of hypertensi on: Mother, Grandparent(V17.49, Z82.49) Status:Active Unknown Family Member Name Dates Details Family history of malignant neoplasm of breast: Mother, Grandparent(V16.3, Z80.3) Status:Active Family history of congenital heart disease: Grandparent(V19.5, Z82.79) Status:Active Family history of type 2 linsey betes mellitus: Grandparent(V18.0, Z83.3) Status:Active Family history of hyperlipid emia: Mother, Father(V18.19, Z83.438) Status:Active Family history of lung cance r: Mother(V16.1, Z80.1) Status:Active Family history of hypertensi on: Mother, Grandparent(V17.49, Z82.49) Status:Active Unknown Family Member Name Dates Details Family history of malignant neoplasm of breast: Mother, Grandparent(V16.3, Z80.3) Status:Active Family history of congenital heart disease: Grandparent(V19.5, Z82.79) Status:Active Family history of type 2 linsey betes mellitus: Grandparent(V18.0, Z83.3) Status:Active Family history of hyperlipid emia: Mother, Father(V18.19, Z83.438) Status:Active Family history of lung cance r: Mother(V16.1, Z80.1) Status:Active Family history of hypertensi on: Mother, Grandparent(V17.49, Z82.49) Status:Active Unknown Family Member Name Dates Details Family history of malignant neoplasm of breast: Mother, Grandparent(V16.3, Z80.3) Status:Active Family history of congenital heart disease: Grandparent(V19.5, Z82.79) Status:Active Family history of type 2 linsey betes mellitus: Grandparent(V18.0, Z83.3) Status:Active Family history of hyperlipid emia: Mother, Father(V18.19, Z83.438) Status:Active Family history of lung cance r: Mother(V16.1, Z80.1) Status:Active Family history of hypertensi on: Mother, Grandparent(V17.49, Z82.49) Status:Active Unknown Family Member Name Dates Details Family history of malignant neoplasm of breast: Mother, Grandparent(V16.3, Z80.3) Status:Active Family history of congenital heart disease: Grandparent(V19.5, Z82.79) Status:Active Family history of type 2 linsey betes mellitus: Grandparent(V18.0, Z83.3) Status:Active Family history of hyperlipid emia: Mother, Father(V18.19, Z83.438) Status:Active Family history of lung cance r: Mother(V16.1, Z80.1) Status:Active Family history of hypertensi on: Mother, Grandparent(V17.49, Z82.49) Status:Active Unknown Family Member Name Dates Details Family history of hypertensi on: Mother, Grandparent(V17.49, Z82.49) Status:Active Family history of lung cance r: Mother(V16.1, Z80.1) Status:Active Family history of hyperlipid emia: Mother, Father(V18.19, Z83.438) Status:Active Family history of type 2 linsey betes mellitus: Grandparent(V18.0, Z83.3) Status:Active Family history of congenital heart disease: Grandparent(V19.5, Z82.79) Status:Active Family history of malignant neoplasm of breast: Mother, Grandparent(V16.3, Z80.3) Status:Active Unknown Family Member Name Dates Details Family history of hypertensi on: Mother, Grandparent(V17.49, Z82.49) Status:Active Family history of lung cance r: Mother(V16.1, Z80.1) Status:Active Family history of hyperlipid emia: Mother, Father(V18.19, Z83.438) Status:Active Family history of type 2 linsey betes mellitus: Grandparent(V18.0, Z83.3) Status:Active Family history of congenital heart disease: Grandparent(V19.5, Z82.79) Status:Active Family history of malignant neoplasm of breast: Mother, Grandparent(V16.3, Z80.3) Status:Active Unknown Family Member Name Dates Details Family history of malignant neoplasm of breast: Mother, Grandparent(V16.3, Z80.3) Status:Active Family history of congenital heart disease: Grandparent(V19.5, Z82.79) Status:Active Family history of type 2 linsey betes mellitus: Grandparent(V18.0, Z83.3) Status:Active Family history of hyperlipid emia: Mother, Father(V18.19, Z83.438) Status:Active Family history of lung cance r: Mother(V16.1, Z80.1) Status:Active Family history of hypertensi on: Mother, Grandparent(V17.49, Z82.49) Status:Active Unknown Family Member Name Dates Details Family history of malignant neoplasm of breast: Mother, Grandparent(V16.3, Z80.3) Status:Active Family history of congenital heart disease: Grandparent(V19.5, Z82.79) Status:Active Family history of type 2 linsey betes mellitus: Grandparent(V18.0, Z83.3) Status:Active Family history of hyperlipid emia: Mother, Father(V18.19, Z83.438) Status:Active Family history of lung cance r: Mother(V16.1, Z80.1) Status:Active Family history of hypertensi on: Mother, Grandparent(V17.49, Z82.49) Status:Active Unknown Family Member Name Dates Details Family history of malignant neoplasm of breast: Mother, Grandparent(V16.3, Z80.3) Status:Active Family history of congenital heart disease: Grandparent(V19.5, Z82.79) Status:Active Family history of type 2 linsey betes mellitus: Grandparent(V18.0, Z83.3) Status:Active Family history of hyperlipid emia: Mother, Father(V18.19, Z83.438) Status:Active Family history of lung cance r: Mother(V16.1, Z80.1) Status:Active Family history of hypertensi on: Mother, Grandparent(V17.49, Z82.49) Status:Active Unknown Family Member Name Dates Details Family history of malignant neoplasm of breast: Mother, Grandparent(V16.3, Z80.3) Status:Active Family history of congenital heart disease: Grandparent(V19.5, Z82.79) Status:Active Family history of type 2 linsey betes mellitus: Grandparent(V18.0, Z83.3) Status:Active Family history of hyperlipid emia: Mother, Father(V18.19, Z83.438) Status:Active Family history of lung cance r: Mother(V16.1, Z80.1) Status:Active Family history of hypertensi on: Mother, Grandparent(V17.49, Z82.49) Status:Active Unknown Family Member Name Dates Details Family history of malignant neoplasm of breast: Mother, Grandparent(V16.3, Z80.3) Status:Active Family history of congenital heart disease: Grandparent(V19.5, Z82.79) Status:Active Family history of type 2 linsey betes mellitus: Grandparent(V18.0, Z83.3) Status:Active Family history of hyperlipid emia: Mother, Father(V18.19, Z83.438) Status:Active Family history of lung cance r: Mother(V16.1, Z80.1) Status:Active Family history of hypertensi on: Mother, Grandparent(V17.49, Z82.49) Status:Active Unknown Family Member Name Dates Details Family history of malignant neoplasm of breast: Mother, Grandparent(V16.3, Z80.3) Status:Active Family history of congenital heart disease: Grandparent(V19.5, Z82.79) Status:Active Family history of type 2 linsey betes mellitus: Grandparent(V18.0, Z83.3) Status:Active Family history of hyperlipid emia: Mother, Father(V18.19, Z83.438) Status:Active Family history of lung cance r: Mother(V16.1, Z80.1) Status:Active Family history of hypertensi on: Mother, Grandparent(V17.49, Z82.49) Status:Active Unknown Family Member Name Dates Details Family history of malignant neoplasm of breast: Mother, Grandparent(V16.3, Z80.3) Status:Active Family history of congenital heart disease: Grandparent(V19.5, Z82.79) Status:Active Family history of type 2 linsey betes mellitus: Grandparent(V18.0, Z83.3) Status:Active Family history of hyperlipid emia: Mother, Father(V18.19, Z83.438) Status:Active Family history of lung cance r: Mother(V16.1, Z80.1) Status:Active Family history of hypertensi on: Mother, Grandparent(V17.49, Z82.49) Status:Active Unknown Family Member Name Dates Details Family history of malignant neoplasm of breast: Mother, Grandparent(V16.3, Z80.3) Status:Active Family history of congenital heart disease: Grandparent(V19.5, Z82.79) Status:Active Family history of type 2 linsey betes mellitus: Grandparent(V18.0, Z83.3) Status:Active Family history of hyperlipid emia: Mother, Father(V18.19, Z83.438) Status:Active Family history of lung cance r: Mother(V16.1, Z80.1) Status:Active Family history of hypertensi on: Mother, Grandparent(V17.49, Z82.49) Status:Active Unknown Family Member Name Dates Details Family history of malignant neoplasm of breast: Mother, Grandparent(V16.3, Z80.3) Status:Active Family history of congenital heart disease: Grandparent(V19.5, Z82.79) Status:Active Family history of type 2 linsey betes mellitus: Grandparent(V18.0, Z83.3) Status:Active Family history of hyperlipid emia: Mother, Father(V18.19, Z83.438) Status:Active Family history of lung cance r: Mother(V16.1, Z80.1) Status:Active Family history of hypertensi on: Mother, Grandparent(V17.49, Z82.49) Status:Active Unknown Family Member Name Dates Details Family history of hypertensi on: Mother, Grandparent(V17.49, Z82.49) Status:Active Family history of lung cance r: Mother(V16.1, Z80.1) Status:Active Family history of hyperlipid emia: Mother, Father(V18.19, Z83.438) Status:Active Family history of type 2 linsey betes mellitus: Grandparent(V18.0, Z83.3) Status:Active Family history of congenital heart disease: Grandparent(V19.5, Z82.79) Status:Active Family history of malignant neoplasm of breast: Mother, Grandparent(V16.3, Z80.3) Status:Active Unknown Family Member Name Dates Details Family history of malignant neoplasm of breast: Mother, Grandparent(V16.3, Z80.3) Status:Active Family history of congenital heart disease: Grandparent(V19.5, Z82.79) Status:Active Family history of type 2 linsey betes mellitus: Grandparent(V18.0, Z83.3) Status:Active Family history of hyperlipid emia: Mother, Father(V18.19, Z83.438) Status:Active Family history of lung cance r: Mother(V16.1, Z80.1) Status:Active Family history of hypertensi on: Mother, Grandparent(V17.49, Z82.49) Status:Active Unknown Family Member Name Dates Details Family history of hypertensi on: Mother, Grandparent(V17.49, Z82.49) Status:Active Family history of lung cance r: Mother(V16.1, Z80.1) Status:Active Family history of hyperlipid emia: Mother, Father(V18.19, Z83.438) Status:Active Family history of type 2 linsey betes mellitus: Grandparent(V18.0, Z83.3) Status:Active Family history of congenital heart disease: Grandparent(V19.5, Z82.79) Status:Active Family history of malignant neoplasm of breast: Mother, Grandparent(V16.3, Z80.3) Status:Active Unknown Family Member Name Dates Details Family history of malignant neoplasm of breast: Mother, Grandparent(V16.3, Z80.3) Status:Active Family history of congenital heart disease: Grandparent(V19.5, Z82.79) Status:Active Family history of type 2 linsey betes mellitus: Grandparent(V18.0, Z83.3) Status:Active Family history of hyperlipid emia: Mother, Father(V18.19, Z83.438) Status:Active Family history of lung cance r: Mother(V16.1, Z80.1) Status:Active Family history of hypertensi on: Mother, Grandparent(V17.49, Z82.49) Status:Active Unknown Family Member Name Dates Details Family history of malignant neoplasm of breast: Mother, Grandparent(V16.3, Z80.3) Status:Active Family history of congenital heart disease: Grandparent(V19.5, Z82.79) Status:Active Family history of type 2 linsey betes mellitus: Grandparent(V18.0, Z83.3) Status:Active Family history of hyperlipid emia: Mother, Father(V18.19, Z83.438) Status:Active Family history of lung cance r: Mother(V16.1, Z80.1) Status:Active Family history of hypertensi on: Mother, Grandparent(V17.49, Z82.49) Status:Active Unknown Family Member Name Dates Details Family history of hypertensi on: Mother, Grandparent(V17.49, Z82.49) Status:Active Family history of lung cance r: Mother(V16.1, Z80.1) Status:Active Family history of hyperlipid emia: Mother, Father(V18.19, Z83.438) Status:Active Family history of type 2 linsey betes mellitus: Grandparent(V18.0, Z83.3) Status:Active Family history of congenital heart disease: Grandparent(V19.5, Z82.79) Status:Active Family history of malignant neoplasm of breast: Mother, Grandparent(V16.3, Z80.3) Status:Active Unknown Family Member Name Dates Details Family history of malignant neoplasm of breast: Mother, Grandparent(V16.3, Z80.3) Status:Active Family history of congenital heart disease: Grandparent(V19.5, Z82.79) Status:Active Family history of type 2 linsey betes mellitus: Grandparent(V18.0, Z83.3) Status:Active Family history of hyperlipid emia: Mother, Father(V18.19, Z83.438) Status:Active Family history of lung cance r: Mother(V16.1, Z80.1) Status:Active Family history of hypertensi on: Mother, Grandparent(V17.49, Z82.49) Status:Active Unknown Family Member Name Dates Details Family history of malignant neoplasm of breast: Mother, Grandparent(V16.3, Z80.3) Status:Active Family history of congenital heart disease: Grandparent(V19.5, Z82.79) Status:Active Family history of type 2 linsey betes mellitus: Grandparent(V18.0, Z83.3) Status:Active Family history of hyperlipid emia: Mother, Father(V18.19, Z83.438) Status:Active Family history of lung cance r: Mother(V16.1, Z80.1) Status:Active Family history of hypertensi on: Mother, Grandparent(V17.49, Z82.49) Status:Active Unknown Family Member Name Dates Details Family history of malignant neoplasm of breast: Mother, Grandparent(V16.3, Z80.3) Status:Active Family history of congenital heart disease: Grandparent(V19.5, Z82.79) Status:Active Family history of type 2 linsey betes mellitus: Grandparent(V18.0, Z83.3) Status:Active Family history of hyperlipid emia: Mother, Father(V18.19, Z83.438) Status:Active Family history of lung cance r: Mother(V16.1, Z80.1) Status:Active Family history of hypertensi on: Mother, Grandparent(V17.49, Z82.49) Status:Active Unknown Family Member Name Dates Details Family history of malignant neoplasm of breast: Mother, Grandparent(V16.3, Z80.3) Status:Active Family history of congenital heart disease: Grandparent(V19.5, Z82.79) Status:Active Family history of type 2 linsey betes mellitus: Grandparent(V18.0, Z83.3) Status:Active Family history of hyperlipid emia: Mother, Father(V18.19, Z83.438) Status:Active Family history of lung cance r: Mother(V16.1, Z80.1) Status:Active Family history of hypertensi on: Mother, Grandparent(V17.49, Z82.49) Status:Active Unknown Family Member Name Dates Details Family history of malignant neoplasm of breast: Mother, Grandparent(V16.3, Z80.3) Status:Active Family history of congenital heart disease: Grandparent(V19.5, Z82.79) Status:Active Family history of type 2 linsey betes mellitus: Grandparent(V18.0, Z83.3) Status:Active Family history of hyperlipid emia: Mother, Father(V18.19, Z83.438) Status:Active Family history of lung cance r: Mother(V16.1, Z80.1) Status:Active Family history of hypertensi on: Mother, Grandparent(V17.49, Z82.49) Status:Active Unknown Family Member Name Dates Details Family history of malignant neoplasm of breast: Mother, Grandparent(V16.3, Z80.3) Status:Active Family history of congenital heart disease: Grandparent(V19.5, Z82.79) Status:Active Family history of type 2 linsey betes mellitus: Grandparent(V18.0, Z83.3) Status:Active Family history of hyperlipid emia: Mother, Father(V18.19, Z83.438) Status:Active Family history of lung cance r: Mother(V16.1, Z80.1) Status:Active Family history of hypertensi on: Mother, Grandparent(V17.49, Z82.49) Status:Active Unknown Family Member Name Dates Details Family history of malignant neoplasm of breast: Mother, Grandparent(V16.3, Z80.3) Status:Active Family history of congenital heart disease: Grandparent(V19.5, Z82.79) Status:Active Family history of type 2 linsey betes mellitus: Grandparent(V18.0, Z83.3) Status:Active Family history of hyperlipid emia: Mother, Father(V18.19, Z83.438) Status:Active Family history of lung cance r: Mother(V16.1, Z80.1) Status:Active Family history of hypertensi on: Mother, Grandparent(V17.49, Z82.49) Status:Active Unknown Family Member Name Dates Details Family history of malignant neoplasm of breast: Mother, Grandparent(V16.3, Z80.3) Status:Active Family history of congenital heart disease: Grandparent(V19.5, Z82.79) Status:Active Family history of type 2 linsey betes mellitus: Grandparent(V18.0, Z83.3) Status:Active Family history of hyperlipid emia: Mother, Father(V18.19, Z83.438) Status:Active Family history of lung cance r: Mother(V16.1, Z80.1) Status:Active Family history of hypertensi on: Mother, Grandparent(V17.49, Z82.49) Status:Active Unknown Family Member Name Dates Details Family history of malignant neoplasm of breast: Mother, Grandparent(V16.3, Z80.3) Status:Active Family history of congenital heart disease: Grandparent(V19.5, Z82.79) Status:Active Family history of type 2 linsey betes mellitus: Grandparent(V18.0, Z83.3) Status:Active Family history of hyperlipid emia: Mother, Father(V18.19, Z83.438) Status:Active Family history of lung cance r: Mother(V16.1, Z80.1) Status:Active Family history of hypertensi on: Mother, Grandparent(V17.49, Z82.49) Status:Active Advance Directives No Advanced Directives Records FoundNo Advanced Directives Records FoundNo Advanced Directives Records FoundNo Advanced Directives Records FoundNo Advanced Directives Records FoundNo Advanced Directives Records FoundNo Advanced Directives Records FoundNo Advanced Directives Records FoundNo Advanced Directives Records FoundNo Advanced Directives Records FoundNo Advanced Directives Records Found Chief Complaint 6 month check up6 month check up6 month check up6 month check. Would like to discuss topiramate and new dose sertraline6 month check. Would like to discuss topiramate and new dose sertralinePt presents for wellness exam, lab and med review; med refills.* F/U R DISTAL FX RADIUS ON 01/14/22 * PAIN- POSITIONAL 08/12 * IMPROVED * F/U S/P R DISTAL RADIUS FX 01/14/22 * IMPROVED Pt presents for routine check up; med review and refills; c/o not sleeping well; dull constant headache above left eyebrow.Pt presents for routine check up; med review and refills; c/o not sleeping well; dull constant headache above left eyebrow. Reason for Referral Specialty Diagnoses / Procedures Referred By Ted burnett Referred To Contact Radiology Diagnoses Screening mammogram for breast cancer Procedures BI mammo bilateral screening tomosynthesis Bree Espinoza MD [facility] [place] [address] Referral ID Status Reason Start Date Expiration Date Visits Requested Visits Authorized [id number] Pending Review Perform Procedure 09/05/2023 09/04/2024 1 1 Specialty Diagnoses / Procedures Referred By Ted burnett Referred To Contact Radiology Diagnoses Screening mammogram for breast cancer Procedures BI mammo bilateral screening tomosynthesis Bree Espinoza MD [address] [place] [address] [facility] Referral ID Status Reason Start Date Expiration Date V isits Requested Visits Authorized [id number] Closed Perform Procedure 09/05/2023 09/04/2024 1 1 Additional Source Comments INFORMATION SOURCE (unrecogn ized section and content) DATE CREATED AUTHOR 01/13/2018 [facility] DATE CREATED AUTHOR AUTHOR'S ORGANIZ ATION 01/18/2019 [facility] DATE CREATED AUTHOR AUTHOR'S ORGANIZ ATION 2022 [facility] DATE CREATED AUTHOR AUTHOR'S ORGANIZ ATION 10/26/2022 [facility] DATE CREATED AUTHOR AUTHOR'S ORGANIZ ATION 03/25/2023 [facility] DATE CREATED AUTHOR AUTHOR'S ORGANIZ ATION 04/06/2023 [facility] DATE CREATED AUTHOR AUTHOR'S ORGANIZ ATION 06/17/2023 [facility] DATE CREATED AUTHOR AUTHOR'S ORGANIZ ATION 03/17/2024 [facility] DATE CREATED AUTHOR AUTHOR'S ORGANIZ ATION 04/25/2025 [facility] DATE CREATED AUTHOR AUTHOR'S ORGANIZ ATION 04/26/2025 [facility] DATE CREATED AUTHOR AUTHOR'S ORGANIZ ATION 05/03/2025 [facility] Source Comments (unrecognize d section and content) In the event this informatio n is protected by the Federal Confidentiality of Alcohol and Drug Abuse Patient Records regulations: The Federal rules restrict any use of the information to criminally investigate or prosecute any alcohol or drug abuse patient.[facility] the event this information is protected by the Federal Confidentiality of Alcohol and Drug Abuse Patient Records regulations: The Federal rules restrict any use of the information to criminally investigate or prosecute any alcohol or drug abuse patient.[facility] the event this information is protected by the Federal Confidentiality of Alcohol and Drug Abuse Patient Records regulations: The Federal rules restrict any use of the information to criminally investigate or prosecute any alcohol or drug abuse patient.[facility] the event this information is protected by the Federal Confidentiality of Alcohol and Drug Abuse Patient Records regulations: The Federal rules restrict any use of the information to criminally investigate or prosecute any alcohol or drug abuse patient.[facility] the event this information is protected by the Federal Confidentiality of Alcohol and Drug Abuse Patient Records regulations: The Federal rules restrict any use of the information to criminally investigate or prosecute any alcohol or drug abuse patient.[facility] Reason for Visit (unrecogniz ed section and content) Reason Comments Yearly Exam Reason Comments DUB Reason Comments Establish Care Reason Comments Follow-up Specialty Diagnoses / Procedures Referred By Ted burnett Referred To Contact Primary Care Diagnoses Migraine without aura and without status migrainosus, not intractable Procedures Follow Up In Primary Care - Established Bree Espinoza MD [address] [facility] [place] [address] Referral ID Status Reason Start Date Expiration Date V isits Requested Visits Authorized [id number] Authorized 12/30/2022 06/28/2023 1 1 Reason Comments Follow-up 6 mos Insomnia Specialty Diagnoses / Procedures Referred By Ted t Referred To Contact Primary Care Diagnoses Acquired hypothyroidism Procedures Follow Up In Primary Care - Established Bree Espinoza MD [address] [place] [address] Referral ID Status Reason Start Date Expiration Date Visits Re quested Visits Authorized [id number] Closed 03/07/2023 09/03/2023 1 1 Specialty Diagnoses / Procedures Referred By Contac t Referred To Contact Radiology Diagnoses Screening mammogram for breast cancer Procedures BI mammo bilateral screening tomosynthesis Bree Espinoza MD [address] [id number] [facility] Referral ID Status Reason Start Date Expiration Date V isits Requested Visits Authorized [id number] Closed Perform Procedure 09/05/2023 09/04/2024 1 1 Reason Comments Follow-up Reason Comments Annual Exam Reason Comments Orders Reason Comments Sinusitis Care Teams (unrecognized sec tion and content) Painter Tumbling Barrel Relationship Specialty Start Date End Date Xavier Knox DO PCP - General Family Medicine 11/19/12 Painter Tumbling [employer]rel Relationship Specialty Start Date End Date Xavier Knox DO PCP - General Family Medicine 11/19/12 Painter Tumbling Barrel Relationship Specialty Start Date End Date Xavier Knox DO PCP - General Family Medicine 11/19/12 Painter Tumbling Barrel Relationship Specialty Start Date End Date Bree Espinoza MD [address] [place] [address] PCP - General Family Medicine 12/23/22 Painter Tumbling Barrel Relationship Specialty Start Date End Date Xavier Knox DO PCP - General Family Medicine 11/19/12 Painter Tumbling Barrel Relationship Specialty Start Date End Date Bree Espinoza MD [address] [place] [address] PCP - General Family Medicine 12/23/22 Painter Tumbling Barrel Relationship Specialty Start Date End Date Bree Espinoza MD [address] [place] [address] PCP - General Family Medicine 12/23/22 Painter Tumbling Barrel Relationship Specialty Start Date End Date Bree Espinoza MD [address] [id number] PCP - General Family Medicine 03/12/24 Painter Tumbling Barrel Relationship Specialty Start Date End Date Bree Espinoza MD [address] [address] PCP - General Family Medicine 03/12/24 Painter Tumbling Barrel Relationship Specialty Start Date End Date Bree Espinoza MD [address] [address] PCP - General Family Medicine 03/12/24 Painter Tumbling Barrel Relationship Specialty Start Date End Date Xavier Knox DO PCP - General Family Medicine 11/19/12 Painter Tumbling Barrel Relationship Specialty Start Date End Date Bree Espinoza MD [address] [address] PCP - General Family Medicine 03/12/24 FOR RECORDS PERTAINING TO PATIENTS WHO ARE OR HAVE BEEN ENROLLED IN A CHEMICAL DEPENDENCY/SUBSTANCEABUSE PROGRAM, SOME INFORMATION MAY BE OMITTED. This clinical summary was aggregated from multiple sources. Caution should be exercised in using it in the provision of clinical care. This summary normalizes information from multiple sources, and as a consequence, information in this document may materially change the coding, format and clinical context of patient data. In addition, data may be omitted in some cases. CLINICAL DECISIONS SHOULD BE BASED ON THE PRIMARY CLINICAL RECORDS. [facility]. provides no warranty or guarantee of the accuracy or completeness of information in this document.
== END | disposition home or self-care (01) ==
LOC: CT 19:00
PROVIDERS: PCP Family Medicine; Referring Provider Otolaryngology; Visit Provider Otolaryngology
DX: J32.9 Chronic sinusitis, unspecified (principal)
CPT/HCPCS: 70486